=== PATIENT | female | born 1940 | race Caucasian/White ===

== ENCOUNTER → 2020-04-02 15:09 | Outpatient (CLI) | payer MEDICARE, SELFPAY ==
--- NOTE | ~2020-04-02 | MM_ITS ---
EXAMINATION: MM screening taryn BI w la HISTORY: Screening mammogram TECHNIQUE: Craniocaudal and mediolateral oblique 3-D tomosynthesis images were obtained and synthetic 2-D images were generated. CAD analysis was submitted and interpreted. COMPARISON: 12/14/2018, 10/31/2017 bilateral digital screening mammogram examinations BREAST PARENCHYMAL COMPOSITION: The breasts are heterogeneously dense, which may obscure small masses . FINDINGS: A There is no evidence of suspicious mass, calcification, or architectural distortion to perera ggest malignancy in either breast. There has been no suspicious interval change. IMPRESSION: 1. No mammographic evidence of malignancy. 2. Recommend routine screening mammography in one year. BI-RADS Category 1: Negative Reviewed, dictated and finalized at location A.
== END ==
PROVIDERS: PCP Emergency Medicine; Visit Provider Emergency Medicine
DX: Z12.31 Encounter for screening mammogram for malignant neoplasm of breast (principal)
CPT/HCPCS: 77063; 77067

== ENCOUNTER → 2021-09-28 13:54 | Outpatient (CLI) | payer MEDICARE, SELFPAY ==
--- NOTE | ~2021-09-28 | MM_ITS ---
EXAMINATION: MM screening taryn BI w la HISTORY: Screening TECHNIQUE: Craniocaudal and mediolateral oblique 3-D tomosynthesis images were obtained and synthetic 2-D images were generated. CAD analysis was submitted and interpreted. COMPARISON: Comparison to multiple prior studies sequentially, with oldest reviewed study dated 10/31. BREAST PARENCHYMAL COMPOSITION: Breast composed of scattered areas of fibroglandular density FINDINGS: There are developing bilateral breast asymmetries in the upper outer quadrants. There are n o suspicious calcifications. No skin thickening. IMPRESSION: 1. Developing bilateral breast asymmetries. 2. Additional mammographic views and possible breast ultrasound are recommended. BI-RADS Category 0: Incomplete: Needs additional imaging evaluation. Reviewed, dictated and finalized at location A. 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 Developing bilateral breast asymmetries. 2. Additional mammographic views and possible breast ultrasound are recommended . BI-RADS Category 0: Incomplete: Needs additional imaging evaluation.
== END ==
PROVIDERS: PCP Emergency Medicine; Visit Provider Emergency Medicine
DX: Z12.31 Encounter for screening mammogram for malignant neoplasm of breast (principal); R92.8 Other abnormal and inconclusive findings on diagnostic imaging of breast
CPT/HCPCS: 77063; 77067

== ENCOUNTER → 2021-10-18 13:54 | Outpatient (CLI) | payer MEDICARE, SELFPAY ==
--- NOTE | ~2021-10-18 | MMUS_ITS ---
EXAMINATION: MM diagnostic taryn BI w la, US breast BI complete HISTORY: Follow-up breast asymmetries TECHNIQUE: Additional 3-D tomosynthesis images of the breasts were performed and synthetic 2-D images were generated. CAD analysis was submitted and interpreted. High resolution bilateral complete breas t ultrasound was performed. COMPARISON: 09/28/2021 BREAST PARENCHYMAL COMPOSITION: The breasts are heterogenously dense, which may obscure small masses FINDINGS: MAMMOGRAPHIC FINDINGS: There are no suspicious masses, calcifications or architectural distortion in either breast to sugges t malignancy. ULTRASOUND: Complete bilateral US of all 4 quadrants of the breasts and retroareolar region was reviewed. Right breast: Near the areola there is a 9 mm cyst. No suspicious masses in the right breast to sugge st malignancy. Left breast: At 5:00, 1 cm from the nipple there is a 4 mm cyst. No suspicious masses to suggest robyn gnancy. IMPRESSION: 1. No evidence for malignancy in either breast. 2. Routine yearly screening mammogram and regular clinical breast examination are recommended. BI-RADS Category 2: Benign finding(s). Reviewed, dictated and finalized at location A. 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 No evidence for malignancy in either breast. 2. Routine yearly screening mammogram and regular clinical breast examination a re recommended. BI-RADS Category 2: Benign finding(s).
== END ==
PROVIDERS: PCP Emergency Medicine; Visit Provider Emergency Medicine
DX: N64.89 Other specified disorders of breast (principal); N60.02 Solitary cyst of left breast; N60.01 Solitary cyst of right breast
CPT/HCPCS: 76641; 77062; 77066; G0279

== ENCOUNTER → 2022-11-30 15:39 | Outpatient (CLI) | payer MEDICARE, SELFPAY ==
--- NOTE | ~2022-11-30 | MR_ITS ---
MRI of the cervical spine Clinical History: Radiculopathy Technique: Axial T2-weighted and gradient images, and sagittal T1-weighted, T2-weighted, and STIR tl ges were acquired. Findings: No fracture identified. Minimal grade 1 anterolisthesis of C3 over C4 present. 3 mm anterol isthesis of C4 over C5 noted. No suspicious bone marrow signal abnormality seen. There is advanced de generative change at the articulation of the odontoid process with the anterior arch of C1. At C2-C3, there is no disc bulge or herniation. No spinal canal stenosis, cord compression, or left n eural foraminal narrowing. There is probable mild right neural foraminal narrowing related to right-s ided facet joint arthropathy. At C3-C4, disc osteophyte complex and facet arthropathy are present, resulting in mild canal stenosis and possible minimal compression of the spinal cord. There is left neural foraminal narrowing. Right neural foramen probably preserved. At C4-C5, there is minimal disc osteophyte complex. No to spinal canal stenosis or cord compressio n. There is bilateral facet joint arthropathy with probable bilateral neural foraminal narrowing. At C5-C6, there is disc osteophyte complex. No to spinal canal stenosis or cord compression. Proba ble minimal bilateral neural foraminal narrowing with minimal bilateral facet arthropathy. At C6-C7, there is degenerative disc narrowing with minimal disc bulge. No spinal canal stenosis or c ord compression. Bilateral neural foramina are preserved. No abnormal signal in the spinal cord. Paravertebral soft tissues are unremarkable. Impression: [id number] degenerative spondylosis, as above. 3 mm anterolisthesis of C4 over C5. Minimal grade 1 anterolisthesis of C3 over C4. Reviewed, dictated and finalized at [facility]. Impression: [id number] degenerative spondylosis, as above. 3 mm anterolisthesis of C4 over C5. Minimal grade 1 anterolisthesis of C3 over C4.
--- NOTE | ~2022-11-30 | MR_ITS ---
MRI of the lumbar spine Clinical History: Spinal stenosis Technique: Axial T2-weighted images, and sagittal T1-weighted, T2-weighted, and T2 fat-sat images wer e acquired. Findings: There is levoscoliosis of the lower lumbar spine. No acute fracture seen. There is minimal grade 1 retrolisthesis of L3 over L4. There is 4 mm anterolisthesis of L4 over L5. There is extensive reactive marrow signal change in the L3, L4, L5 vertebral bodies due to underlying degenerative disc disease. At L1-L2, there is mild disc bulge, particularly to left foraminal region, with moderate bilateral fa cet joint arthropathy. No to spinal canal stenosis. Bilateral neural foramina are preserved. At L2-L3, there is disc bulge with annular fissure, with advanced bilateral facet arthropathy. There is mild central canal stenosis. There is minimal narrowing of the right neural foramen. Left neural f oramen preserved. At L3-L4, there is severe degenerative disc narrowing with disc bulge and moderate to severe bilatera l facet arthropathy. There is right lateral recess stenosis. There is moderate right neural foraminal narrowing. Left neural foramen preserved. At L4-L5, there is severe degenerative disc narrowing with diffuse disc bulge and advanced bilateral facet arthropathy. No to central canal stenosis. There is severe bilateral neural foraminal narrow ing. At L5-S1, there is mild disc bulge with moderate facet joint arthropathy, left worse than right. Ther e is severe left neural foraminal narrowing and minimal right neural foraminal narrowing. No to ce ntral canal stenosis. There is asymmetric unilateral atrophy of the right psoas major muscle. Paravertebral soft tissues ar e otherwise unremarkable. Impression: Moderate degenerative spondylosis, as detailed above, with extensive facet joint arthropathy and mult ilevel advanced neural foraminal narrowing. Levoscoliosis of the lower lumbar spine with 4 mm anterolisthesis of L4 over L5, and minimal grade 1 retrolisthesis of L3 over L4. Unilateral atrophy of the right psoas major muscle. Reviewed, dictated and finalized at location M. Impression: Moderate degenerative spondylosis, as detailed above, with extensive facet join t arthropathy and multilevel advanced neural foraminal narrowing. Levoscoliosis of the lower lumbar spine with 4 mm anterolisthesis of L4 over L5 , and minimal grade 1 retrolisthesis of L3 over L4. Unilateral atrophy of the right psoas major muscle.
== END ==
PROVIDERS: PCP Physician Assistant; Visit Provider Physician Assistant
DX: M48.062 Spinal stenosis, lumbar region with neurogenic claudication (principal); M47.22 Other spondylosis with radiculopathy, cervical region; M47.816 Spondylosis without myelopathy or radiculopathy, lumbar region; G12.9 Spinal muscular atrophy, unspecified
CPT/HCPCS: 72141; 72148

== ENCOUNTER → 2022-12-28 12:17 | Outpatient (CLI) | payer MEDICARE, SELFPAY ==
--- NOTE | ~2022-12-28 | MM_ITS ---
EXAMINATION: MM screening taryn BI w la HISTORY: Screening mammogram TECHNIQUE: Craniocaudal and mediolateral oblique 3-D tomosynthesis images were obtained and synthetic 2-D images were generated. CAD analysis was submitted and interpreted. COMPARISON: 09/28/2021, 04/02/2020, 12/14/2018 BREAST PARENCHYMAL COMPOSITION:The breasts are heterogeneously dense, which may obscure small masses. FINDINGS: No suspicious mass, calcification, or architectural distortion are identified in either gregoria ast to suggest malignancy. There has been no suspicious interval change. IMPRESSION: No mammographic evidence of malignancy. Recommend routine screening mammography in one year. BI-RADS Category 1: Negative Reviewed, dictated and finalized at location .
== END ==
PROVIDERS: PCP Emergency Medicine; Visit Provider Emergency Medicine
DX: Z12.31 Encounter for screening mammogram for malignant neoplasm of breast (principal)
CPT/HCPCS: 77063; 77067

== ENCOUNTER 2023-01-28 23:14 | Inpatient (IN) | payer MEDICARE, SELFPAY ==
--- NOTE | ~2023-01-28 | XR_ITS ---
EXAMINATION: XR abdomen obstructive series DATE: 02/06/2023 15:46 INDICATION: Abdominal pain TECHNIQUE: Upright and supine views of the abdomen were obtained. COMPARISON: None. FINDINGS: There is no free intraperitoneal gas. There are no dilated loops of bowel. There are minima l airspace opacities of the left lung base. Changes of right total hip arthroplasty are noted. There is severe lumbar spondylosis. Moderate osteoarthritis is noted in the left hip. Punctate left upper q uadrant calcifications are consistent with old granulomatous disease of the spleen. IMPRESSION: 1. Nonobstructive bowel gas pattern. Reviewed, dictated and finalized at location []
--- NOTE | ~2023-01-28 | XR_ITS ---
Portable chest x-ray Comparison: 01/31/2023 Clinical History: Covid Findings: Suspected minimal pleural effusions are present. There is left basilar airspace disease. Cardiomediastinal silhouette is stable. Bones and soft tissues are unremarkable. Impression: Left basilar pulmonary/atelectasis versus pneumonia. Minimal bilateral pleural effusions. Reviewed, dictated and finalized at [facility]. Impression: Left basilar pulmonary/atelectasis versus pneumonia. Minimal bilateral pleural effusions.
--- NOTE | ~2023-01-28 | US_ITS ---
EXAMINATION: US right upper quadrant DATE: 02/06/2023 15:36 INDICATION: NAUSEA TECHNIQUE: Multiple grayscale and Doppler ultrasound images of the right upper quadrant were obtained . COMPARISON: Ultrasound renal bilateral 01/29/2023; CTPA 02/02/2023. FINDINGS: The visualized portions of the pancreas are normal. The liver is normal size with increased echogenicity and normal echotexture. No surface nodularity. Normal hepatopetal flow in the main port al vein. Mobile shadowing gallstones. No wall thickening or pericholecystic fluid. The common bile du ct measures 6 mm. There was no sonographic Sharif sign. IMPRESSION: Echogenic liver, most commonly due to steatosis but also can be seen with hepatitis and fibrosis. Cholelithiasis, without sonographic evidence of cholecystitis. Reviewed, dictated and finalized at location K. IMPRESSION: Echogenic liver, most commonly due to steatosis but also can be seen with hepat itis and fibrosis. Cholelithiasis, without sonographic evidence of cholecystitis.
--- NOTE | ~2023-01-28 | XR_ITS ---
XR chest 1V portable 01/31/2023 11:56 Indication: Shortness of breath Procedure: AP portable chest Comparison: 08/29/2010 Findings: Heart size normal. Bilateral perihilar interstitial infiltrates with peribronchial thickeni ng. No pleural effusion or pneumothorax. No acute osseous abnormality. Impression: 1: Bilateral perihilar interstitial infiltrates may represent pneumonia or edema. Reviewed, dictated and finalized at location . Impression: 1: Bilateral perihilar interstitial infiltrates may represent pneumonia or blake a.
--- NOTE | ~2023-01-28 | US_ITS ---
EXAMINATION: US venous doppler [facility] DATE: 02/01/2023 14:05 INDICATION: +Ddimer, fevers . TECHNIQUE: Grayscale images without and with compression and Doppler images of the bilateral lower ex tremity veins were obtained. COMPARISON: 06/30/2011 FINDINGS: The right common femoral vein, profunda (deep) femoral vein, femoral vein, popliteal vein, peroneal v ein, posterior tibial veins, gastrocnemius vein, and greater saphenous vein are patent. Popliteal cys t. The left common femoral vein, profunda (deep) femoral vein, femoral vein, popliteal vein, peroneal v ein, posterior tibial veins, gastrocnemius vein, and greater saphenous vein are patent. Popliteal cys t. IMPRESSION: 1. Patent bilateral lower extremity veins. No evidence of deep venous thrombosis. 2. Bilateral Feliciano's cysts. Reviewed, dictated and finalized at location K. IMPRESSION: 1. Patent bilateral lower extremity veins. No evidence of deep venous thrombos is. 2. Bilateral Feliciano's cysts.
--- NOTE | ~2023-01-28 | CT_ITS ---
EXAMINATION: CTA chest PE protocol DATE: 02/02/2023 14:37 INDICATION: Pleuritic chest pain. COVID. Positive d-dimer. TECHNIQUE: Computed tomography (CT) pulmonary angiogram of the chest was performed with 100 mL Omnipa que-350 intravenous contrast. Additional 3D reconstructions utilizing coronal maximum intensity proje ction (MIP) were performed. Automated exposure control and iterative reconstruction technique were em ployed. The dose-length product was 359.97 mGy-cm. COMPARISON: None FINDINGS: Excellent contrast opacification of the pulmonary arteries. There is mild streak artifact from dense contrast in the superior vena cava and right atrium. No significant motion artifact yielding diagnost ic quality study which demonstrates no pulmonary embolism. Small bilateral posterior layering pleural effusions with dependent atelectasis in the bilateral lower lobes. Small regions of consolidation gr oundglass opacities in the left lower lobe and posterior right middle lobe which are more suspicious for pneumonia. Small calcified right lower lobe nodule along with calcified right hilar and mediastin al lymph nodes and a few small splenic calcifications, all consistent with old granulomatous disease. Heart size is normal. No pericardial effusion. Thoracic aorta is normal in caliber with no dissectio n. No pathologically enlarged thoracic lymphadenopathy. Focal hepatic steatosis along the ligamentum teres. Mild thoracic and severe lower cervical spondylosis. IMPRESSION: 1. No pulmonary embolism. 2. Patchy lung disease in the left lower and right middle lobe suspicious for pneumonia. 3. Small bilateral pleural effusions with dependent atelectasis in the bilateral lower lobes. Reviewed, dictated and finalized at location A. IMPRESSION: 1. No pulmonary embolism. 2. Patchy lung disease in the left lower and right middle lobe suspicious for p neumonia. 3. Small bilateral pleural effusions with dependent atelectasis in the bilatera l lower lobes.
--- NOTE | ~2023-01-28 | US_ITS ---
US renal BI 01/29/2023 13:08 Procedure: Realtime transabdominal ultrasound of the kidneys and bladder. Indication: Incomplete emptying. Flank pain. Comparison: No prior studies for comparison. Findings: Renal echotexture is normal bilaterally without hydronephrosis, contour deforming mass or r enal calculus. The right kidney measures 10 cm and left kidney measures 9.6 cm. Bladder within gilberto l limits. Gallstones are incidentally noted. Impression: 1: Unremarkable renal ultrasound. No stones, masses or hydronephrosis. 2: Cholelithiasis. Reviewed, dictated and finalized at location A. Impression: 1: Unremarkable renal ultrasound. No stones, masses or hydronephrosis. 2: Cholelithiasis.
[2023-01-28 23:53] VITALS: BP 144/65; PULSE 110; RESP 18; TEMP 38.5; O2SAT 94
[2023-01-29] VITALS (16 sets, daily range): BP systolic 103–149; BP diastolic 47–75; PULSE 84–111; RESP 12–20; TEMP 36.8–38.7; O2SAT 95–100; BMI 28.4
[2023-01-29 01:40] LABS: Basophils Percent Auto 0.5 % (0.2-1.2); Eosinophils Percent Auto 0.1 % (0-4.4); Hematocrit 42.6 % (37.0-47.0); Hemoglobin 13.5 g/dL (12.0-15.0); Immature Granulocyte Absolute 0.03 K/mm3 (0.00-0.031); Immature Granulocyte Percent A 0.4 % (0-0.5); Lymphocytes Absolute Auto 0.64 K/mm3 (0.9-3.2); Lymphocytes Percent Auto 8.6 % (18.3-44.2); Mean Corpuscular HGB Conc 31.7 g/dl (32-36); Mean Corpuscular Hemoglobin 30.2 pg (26-34); Mean Corpuscular Volume 95.3 fl (80-100); Mean Platelet Volume 9.5 fl (7.4-10.4); Monocytes Absolute Auto 0.5 K/mm3 (0.1-0.6); Monocytes Percent Auto 6.7 % (2.6-8.5); Neutrophils Absolute Auto 6.2 K/mm3 (1.3-6.7); Neutrophils Percent Auto 83.7 % (45.5-73.1); Platelet Count Result 271 k/mm3 (150-375); Red Blood Count 4.47 M/mm3 (4.2-5.4); Red Cell Distribution Width 13.9 % (11.5-14.5); White Blood Count 7.4 K/mm3 (4.5-10.0)
[2023-01-29 01:46] LABS: Appearance Urine Cloudy (Clear); Bacteria Urine 1+ /hpf; Bilirubin Urine Negative (Negative); Blood Urine 2+ (Negative); Color Urine Yellow (Yellow); Glucose Urine UA Negative (Negative); Ketones Urine 1+ mg/dL (Negative); Leukocyte Esterase Ur 2+ LEU/UL (Negative); Nitrate Urine Negative (Negative); Non Pathogenic Casts 0-2; Protein Urine Trace mg/dL (Negative); Specific Grav Ur 1.022 (1.001-1.035); Squamous Epithelial Cell Urine Moderate /hpf (Few); Urobilinogen Urine 0.2 mg/dL (<2.0); WBC Urine 51-100 /hpf
[2023-01-29 01:54] LABS: Alanine Aminotransferase 24 U/L (6-35); Albumin Level 4.6 g/dL (3.5-5.1); Alkaline Phosphatase 71 U/L (38-126); Anion Gap 7 mmol/L (8-16); Aspartate Amino Transferase 34 U/L (14-36); Bilirubin,Total 0.4 mg/dL (0.2-1.3); Blood Urea Nitrogen 14 mg/dL (7-17); Calcium 9.3 mg/dL (8.4-10.2); Carbon Dioxide 27 mmol/L (22-30); Chloride 99 mmol/L (98-107); Estimated CRCL calculation 34 ml/min; Estimated Glomerular Filt Rate 53; Glucose 109 mg/dL (65-110); Lipase 59 U/L (23-300); Potassium 4.6 mmol/L (3.4-5.0); Sodium 133 mmol/L (137-145)
[2023-01-29 01:56] LABS: Add Urine Microscopic? YES
--- NOTE | 2023-01-29 03:43 | PM.IMHP ---
H&P: HPI History of Present Illness Date/Time: 01/29/23 03:43 Chief Complaint: Fever Narrative: This is an 82-year-old female with past medical history significant for rheumatoid arthritis, hypertension, hypothyroidism. Patient presents to the emergency room due to lower abdomen pain, pain or burning with urination, fever, generalized malaise. Denies cough, sputum production, nausea vomiting or diarrhea. Preliminary workup was significant for urinalysis with numerous WBCs present. Patient is on immunosuppressive therapy for her rheumatoid arthritis. Patient is being admitted for further evaluation management and treatment. Review of Systems Review of Systems: Lower abdomen pain, pain or burning with urination, fever, chills, generalized malaise Constitutional: Constitutional: Reports chills, Reports fatigue, Reports fever(s), Reports malaise, Reports poor appetite and Reports weakness Eyes: Eyes: Denies change in vision ENT: Denies dysphagia, Denies vertigo, Denies dizziness and Denies odynophagia Cardiovascular: Cardiovascular: Denies chest pain, Denies radiating jaw, neck or arm pain and Denies palpitations Respiratory: Respiratory: Denies chest congestion, Denies cough and Denies excessive phlegm production Gastrointestinal: Gastrointestinal: Reports abdominal pain, Denies dyspepsia, Denies heartburn, Denies diarrhea, Denies nausea and Denies vomiting Genitourinary: Genitourinary: Reports dysuria Musculoskeletal: Musculoskeletal: Reports myalgias and Reports muscle weakness Integumentary/Breasts: Skin/Breast: Denies rash Neurologic: Denies vertigo, Denies dizziness, Denies focal weakness and Denies Sensory deficit (Neuro) Psychiatric: Psychiatric: Reports no additional psychiatric complaints and Reports as per HPI Endocrine: Endocrine: Denies cold intolerance, Denies flushing, Denies heat intolerance, Denies polyphagia, Denies polydipsia and Denies palpitations Hematologic/Lymphatic: Hematologic/Lymphatic: Reports no additional hematologic/lymphatic complaints and Reports as per HPI Allergic/Immunologic: Allergic/Immunologic: Reports no additional allergic/immunologic complaints and Reports as per HPI PMFSH Past Medical History Medical History (Updated 01/29/23 @ 04:04 by Shanon Robison MD) HLD (hyperlipidemia) Hypothyroidism (acquired) Family History Family History Father Family history of emphysema Sibling Family history of emphysema Grandparent Family history of cardiovascular disease Family history of lung cancer Social History Social History Smoking status: Never smoker Second hand tobacco smoke exposure: No Alcohol intake: never Substance use: never Substance use type: does not use Living arrangements: with family Gender identity (if verbalized by the patient): Female Spiritual care concerns: No Agree to blood products: Yes Meds Home Medications and Allergies Home Medications Medication Instructions Recorded Confirmed Type cholecalciferol (vitamin D3) 50 2,000 unit PO DAILY 10/08/19 10/04/21 History mcg (2,000 unit) tablet hydrocodone 10 mg-acetaminophen 1 tablet PO Q6H PRN 04/07/20 10/04/21 History 325 mg tablet diclofenac sodium 75 mg See Rx Instructions .Route 10/13/20 10/04/21 Rx tablet,delayed release .COMPLEX #180 tabs amitriptyline 10 mg tablet 10 mg PO QHS 04/04/22 History lidocaine 4 % topical patch 1 patch topical DAILY PRN pain #30 04/04/22 04/04/22 Rx (Aspercreme (lidocaine)) ea levothyroxine 50 mcg tablet See Rx Instructions .Route 04/19/22 Rx .COMPLEX #90 tabs ciprofloxacin HCl 500 mg tablet 500 mg PO BID #14 tabs 06/15/22 Rx (Cipro) metronidazole 250 mg tablet 250 mg PO TID #21 tabs 06/15/22 Rx tretinoin 0.1 % topical cream See Rx Instructions .Route 10/03/22 Rx .COMPLEX #45 grams losartan 50 mg tab
[2023-01-29] MEDS: SODIUM CHLORIDE 0.9% IV 1,000 ML 999 ML IV CONT ×2 (04:14→11:16)
--- NOTE | 2023-01-29 04:21 | ED.FEVER ---
HPI - Fever General Chief Complaint: Fever Stated Complaint: Fever, pain all over Time Seen by Provider: 01/29/23 03:29 History of Present Illness HPI Narrative: Patient with history of arthritis on immunosuppressants, with colectomy in the past, presenting with not feeling well over the last day, with fevers. Has joint pain and neck pain which is chronic, but also some lower abdominal pain. Related Data Home Medications Medication Instructions Recorded Confirmed cholecalciferol (vitamin D3) 50 2,000 unit PO DAILY 10/08/19 10/04/21 mcg (2,000 unit) tablet hydrocodone 10 mg-acetaminophen 1 tablet PO Q6H PRN 04/07/20 10/04/21 325 mg tablet amitriptyline 10 mg tablet 10 mg PO QHS 04/04/22 Allergies Allergy/AdvReac Type Severity Reaction Status Date / Time No Known Allergies Allergy Verified 10/03/22 14:14 Review of Systems Review of Systems: CONST: fever and malaise. HEENT: No sore throat C/V: No chest pain RESP: No cough GI: Reports lower abdominal pain : No dysuria. M/S: No joint pain. SKIN: No rash. NEURO: [No headache or focal numbness or weakness] PSYCH: [No depression] [facility] Past Medical History Medical History (Updated 01/29/23 @ 04:36 by Kelley Kevin MD) HLD (hyperlipidemia) Hypothyroidism (acquired) Family History Family History Father Family history of emphysema Sibling Family history of emphysema Grandparent Family history of cardiovascular disease Family history of lung cancer Social History Social History Smoking status: Never smoker Second hand tobacco smoke exposure: No Alcohol intake: never Substance use: never Substance use type: does not use Living arrangements: with family Gender identity (if verbalized by the patient): Female Spiritual care concerns: No Agree to blood products: Yes Exam Narrative: EXAMINATION OF ORGAN SYSTEMS/BODY AREAS: Constitutional: Vital signs per nursing GENERAL:[No acute distress, non-toxic appearing.] HEAD: Normal with no signs of head trauma. EYES: EOMI, conjunctiva normal ENT: Hearing grossly intact LUNGS: Nonlabored breathing. HEART: Tachycardic ABD: [Soft], minimally tender suprapubic EXT: Normal range of motion SKIN: [No rashes or lesions.] NEURO: [Alert and oriented x 3. No gross focal sensory or strength deficits.] PSYCH: Normal affect Course Vital Signs Vital signs: Vital Signs Temperature 101.3 F H 01/28/23 23:53 Pulse Rate 110 H 01/28/23 23:53 Respiratory Rate 18 01/28/23 23:53 Blood Pressure 144/65 H 01/28/23 23:53 Pulse Oximetry 94 01/28/23 23:53 Oxygen Delivery Room Air 01/28/23 23:53 Temperature 100.4 F H 01/29/23 04:13 Pulse Rate 111 H 01/29/23 01:22 Respiratory Rate 16 01/29/23 01:22 Blood Pressure 149/51 H 01/29/23 01:22 Pulse Oximetry 96 01/29/23 01:22 Oxygen Delivery Room Air 01/28/23 23:53 MDM - Fever MDM Narrative Medical decision making narrative: 82-year-old female presenting with fevers, lower abdominal pain, for the last day. Vital signs notable for tachycardia and fever, on exam she is well-appearing and resting comfortably in no obvious distress, abdomen is soft with very minimal tenderness suprapubic, no flank pain. She is able to range all extremities with normal range of motion, I have low concern for septic arthritis at this time, work-up initiated and notable for UA consistent with UTI. Patient will be started on ceftriaxone, given her immunocompromise status I do feel she would benefit from observation at this time, case discussed with hospitalist for admission, patient agreeable to this plan Lab Data 01/29/23 01:20 01/29/23 01:20 Labs: Lab Results 01/29/23 01/29/23 Range/Units 01:20 01:30 WBC 7.4 (4.5-10.0) K/mm3 RBC 4.47 (4.2-5.4) M/mm3 Hgb 13.5 (12.0-15.
--- NOTE | 2023-01-29 05:14 | ADMGEN ---
This patient, Emy Yates, was admitted to 2 Medical Room 244-. Patient/family oriented to hospital policies and general routines including ID bracelet, bed and alarms, visiting hours, pain management, procedures, bathroom and other care routines, personal items, smoking policy, room service/diet, and visiting hours. Information on how to activate the Rapid Response Team has been discussed. Patient/Family are encouraged to report perceived risks to care and to ask questions if they do not understand what they are told or what they should do.
[2023-01-29] MEDS: HYDROcodone/acetaminophen (*CRX) 10-325 MG TABLET 1 TAB PO ×2 (06:40→22:08)
[2023-01-29] MEDS: LEVOTHYROXINE SODIUM 50 MCG TABLET PO (06:40)
[2023-01-29] MEDS: DICLOFENAC SOD 75 MG TABLET.EC PO (08:12)
[2023-01-29] MEDS: CHOLECALCIFEROL 1,000 UNITS TABLET 2000 UNITS PO (08:12)
[2023-01-29] MEDS: LOSARTAN POTASSIUM 50 MG TABLET PO (08:13)
[2023-01-29] MEDS: GABAPENTIN 100 MG CAPSULE PO ×3 (08:13→17:43)
--- NOTE | 2023-01-29 10:20 | PM.IMPN ---
Progress Note: A&P Assessment and Plan (1) UTI (urinary tract infection): Code(s): N39.0 - Urinary tract infection, site not specified Status: Acute Assessment and Plan: Continue Rocephin started 01/29 Follow-up urine cultures Check CRP, procalcitonin Check renal ultrasound, bladder scan due to flank discomfort, fevers, sense of incomplete emptying and new onset overflow incontinence as well as history of kidney stones (2) Cervical spinal stenosis: Code(s): M48.02 - Spinal stenosis, cervical region Status: Acute Assessment and Plan: Unchanged (3) Fever: Code(s): R50.9 - Fever, unspecified Status: Acute Assessment and Plan: Likely secondary to urinary tract infection Supportive care (4) Rheumatoid arthritis in remission: Code(s): M06.9 - Rheumatoid arthritis, unspecified Status: Acute Assessment and Plan: In remission Follows up in the outpatient setting (5) Headache: Code(s): R51.9 - Headache, unspecified Status: Acute Assessment and Plan: Unsure of etiology, differential diagnosis includes giant cell arteritis due to temporal location, no vision changes noted, could also did simply be secondary to the infection, Tylenol and Toradol as needed, will also check ESR and CRP and monitor with serial vision field testing, hold off on steroids for now due to immunocompromised state current infection (6) Hypothyroidism (acquired): Code(s): E03.9 - Hypothyroidism, unspecified Status: Acute Assessment and Plan: Check TSH, continue levothyroxine Plan DVT prophylaxis with SCDs GI prophylaxis not indicated Code status full code Subjective Date/time seen: 01/29/23 10:20 Interval history: No overnight events noted. No chest pain or shortness of breath. No nausea, vomiting or diarrhea. Patient did have fevers overnight. She states she is feeling a little better since coming in. Still quite weak. Decreased p.o. intake. She is also complaining of a headache, mainly at the right temporal area. She denies any vision changes, blurry vision or double vision. Review of Systems Review of Systems: 12 point review of systems was assessed and was negative except as noted in the HPI Exam Narrative: General: No acute distress, alert and oriented per baseline HEENT: Atraumatic, normocephalic, mucous membranes moist CV: Regular rate and rhythm, S1, S2 Lungs: Clear to auscultation bilaterally, no rales or crackles noted, no wheezes, good air entry Abdomen: Soft, nontender, nondistended Extremities: Normal to inspection Skin: No rashes noted, no lesions or wounds seen Psych: Euthymic, normal affect Objective Data Vital Signs Vital Signs: Vital Signs - 24 hr 01/28/23 23:53 01/29/23 01:22 01/29/23 04:13 Temperature 101.3 F H 100.1 F H 100.4 F H Pulse Rate 110 H 111 H Respiratory Rate 18 16 Blood Pressure 144/65 H 149/51 H Pulse Oximetry 94 96 Oxygen Delivery Room Air 01/29/23 03:34 01/29/23 03:46 01/29/23 04:01 Temperature Pulse Rate 95 Respiratory Rate 12 Blood Pressure 143/75 H 136/56 L 131/63 Pulse Oximetry 98 97 95 Oxygen Delivery 01/29/23 04:16 01/29/23 04:56 01/29/23 05:24 Temperature 100.5 F H Pulse Rate 96 Respiratory Rate 20 Blood Pressure 132/63 138/49 L Pulse Oximetry 96 100 Oxygen Delivery Room Air 01/29/23 08:09 01/29/23 08:05 Temperature 98.3 F Pulse Rate 84 Respiratory Rate 16 Blood Pressure 113/56 L Pulse Oximetry 98 Oxygen Delivery Room Air Intake/Output Intake/Output: Intake & Output 01/26/23 01/27/23 01/28/23 01/29/23 23:59 23:59 23:59 23:59 Intake Total 270 Output Total 400 Balance -130 Meds/Results Medications: Active Medications Generic Name Dose Route Start Last Admin Trade Name Beatriz PRN Reason Stop Dose Admin Acetaminophen 1,000 mg 01/29/23 10:15
--- NOTE | 2023-01-29 11:19 | PCOTNOTE ---
Attempted OT evaluation, patient is getting bolus. RN states to hold evaluation till complete.
[2023-01-29 11:42] LABS: Erythrocyte Sedimentation Rate 28 mm/hr (0-20)
[2023-01-29 11:45] LABS: CRP 1.9 mg/dL (<1.0)
[2023-01-29 12:10] LABS: Thyroid Stimulating Hormone 0.961 uIU/mL (0.465-4.680)
[2023-01-29] MEDS: ACETAMINOPHEN 500 MG TABLET 1000 MG PO ×2 (12:26→21:02)
[2023-01-29 12:48] LABS: Procalcitonin 0.1 ng/mL
--- NOTE | 2023-01-29 13:27 | PCOTNOTE ---
Attempted OT evaluation. Nurse and patient report fever. Patient refuses evaluation at this time.
[2023-01-29] MEDS: AMITRIPTYLINE HCL 10 MG TABLET PO (22:08)
[2023-01-30] VITALS (14 sets, daily range): BP systolic 124–136; BP diastolic 53–72; PULSE 86–102; RESP 16; TEMP 36.6–39.2; O2SAT 93–96
[2023-01-30] MEDS: ACETAMINOPHEN 500 MG TABLET 1000 MG PO ×4 (05:08→23:57)
[2023-01-30] MEDS: LEVOTHYROXINE SODIUM 50 MCG TABLET PO (05:08)
[2023-01-30 05:44] LABS: Basophils Percent Auto 0.2 % (0.2-1.2); Eosinophils Percent Auto 0.2 % (0-4.4); Hematocrit 37.4 % (37.0-47.0); Hemoglobin 11.9 g/dL (12.0-15.0); Immature Granulocyte Absolute 0.02 K/mm3 (0.00-0.031); Immature Granulocyte Percent A 0.3 % (0-0.5); Lymphocytes Absolute Auto 1.43 K/mm3 (0.9-3.2); Lymphocytes Percent Auto 21.7 % (18.3-44.2); Mean Corpuscular HGB Conc 31.8 g/dl (32-36); Mean Corpuscular Hemoglobin 30.4 pg (26-34); Mean Corpuscular Volume 95.7 fl (80-100); Mean Platelet Volume 9.6 fl (7.4-10.4); Monocytes Absolute Auto 0.5 K/mm3 (0.1-0.6); Monocytes Percent Auto 7.8 % (2.6-8.5); Neutrophils Absolute Auto 4.6 K/mm3 (1.3-6.7); Neutrophils Percent Auto 69.8 % (45.5-73.1); Platelet Count Result 229 k/mm3 (150-375); Red Blood Count 3.91 M/mm3 (4.2-5.4); Red Cell Distribution Width 14.1 % (11.5-14.5); White Blood Count 6.6 K/mm3 (4.5-10.0)
[2023-01-30 06:02] LABS: Alanine Aminotransferase 22 U/L (6-35); Albumin Level 3.7 g/dL (3.5-5.1); Alkaline Phosphatase 49 U/L (38-126); Anion Gap 7 mmol/L (8-16); Aspartate Amino Transferase 38 U/L (14-36); Bilirubin,Total 0.2 mg/dL (0.2-1.3); Blood Urea Nitrogen 10 mg/dL (7-17); Calcium 7.9 mg/dL (8.4-10.2); Carbon Dioxide 26 mmol/L (22-30); Chloride 103 mmol/L (98-107); Estimated CRCL calculation 43 ml/min; Estimated Glomerular Filt Rate > 60; Glucose 97 mg/dL (65-110); Potassium 4.1 mmol/L (3.4-5.0); Sodium 136 mmol/L (137-145)
--- NOTE | 2023-01-30 08:11 | PCPTNOTE ---
Attempted PT evaluation, patient refused and stated 'I'm not feel well . Will follow.
--- NOTE | 2023-01-30 08:43 | PM.IMPN ---
Progress Note: A&P Assessment and Plan (1) UTI (urinary tract infection): Code(s): N39.0 - Urinary tract infection, site not specified Status: Acute Assessment and Plan: Continue Rocephin started 01/29, follow-up urine cultures Check renal ultrasound, bladder scan due to flank discomfort, fevers, sense of incomplete emptying and new onset overflow incontinence as well as history of kidney stones 01/30: sustained fevers overnight despite tylenol, concern for enterococcus vs ESBL? d/c rocephin, start vanc + ertapenem, follow urine cultures, recheck CRP + PCT 01/31, IVF (2) Cervical spinal stenosis: Code(s): M48.02 - Spinal stenosis, cervical region Status: Acute Assessment and Plan: Unchanged (3) Fever: Code(s): R50.9 - Fever, unspecified Status: Acute Assessment and Plan: Likely secondary to urinary tract infection Supportive care (4) Rheumatoid arthritis in remission: Code(s): M06.9 - Rheumatoid arthritis, unspecified Status: Acute Assessment and Plan: In remission Follows up in the outpatient setting (5) Headache: Code(s): R51.9 - Headache, unspecified Status: Acute Assessment and Plan: Unsure of etiology, differential diagnosis includes giant cell arteritis due to temporal location, no vision changes noted, could also did simply be secondary to the infection, Tylenol and Toradol as needed, will also check ESR and CRP and monitor with serial vision field testing, hold off on steroids for now due to immunocompromised state current infection (6) Hypothyroidism (acquired): Code(s): E03.9 - Hypothyroidism, unspecified Status: Acute Assessment and Plan: TSH wnl, continue levothyroxine Plan DVT prophylaxis with SCDs GI prophylaxis not indicated Code status full code Subjective Date/time seen: 01/30/23 08:43 Interval history: Patient is continuing to have fevers and feels quite unwell. She feels quite weak. No overnight events. No NVD. No CP, SOB. Review of Systems Review of Systems: 12 point review of systems was assessed and was negative except as noted in the HPI Exam Narrative: General: No acute distress, alert and oriented per baseline HEENT: Atraumatic, normocephalic, mucous membranes moist CV: Regular rate and rhythm, S1, S2 Lungs: Clear to auscultation bilaterally, no rales or crackles noted, no wheezes, good air entry Abdomen: Soft, nontender, nondistended Extremities: Normal to inspection Skin: No rashes noted, no lesions or wounds seen Psych: Euthymic, normal affect Objective Data Vital Signs Vital Signs: Vital Signs - 24 hr 01/29/23 12:26 01/29/23 13:29 01/29/23 14:00 Temperature 101.0 F H 100.1 F H 98.3 F Pulse Rate 91 Respiratory Rate 18 Blood Pressure 103/47 L Pulse Oximetry 95 Oxygen Delivery 01/29/23 19:55 01/29/23 21:01 01/29/23 21:02 Temperature 99.5 F 101.2 F H 101.2 F H Pulse Rate 86 Respiratory Rate 20 Blood Pressure 120/53 L Pulse Oximetry 96 Oxygen Delivery 01/29/23 20:00 01/29/23 22:02 01/29/23 22:59 Temperature 101.6 F H 100.5 F H Pulse Rate Respiratory Rate Blood Pressure Pulse Oximetry Oxygen Delivery Room Air 01/30/23 04:54 01/30/23 05:08 01/30/23 06:08 Temperature 100.6 F H 100.6 F H 102.2 F H Pulse Rate 102 H Respiratory Rate 16 Blood Pressure 124/72 Pulse Oximetry 96 Oxygen Delivery 01/30/23 08:19 Temperature Pulse Rate Respiratory Rate Blood Pressure Pulse Oximetry Oxygen Delivery Room Air Intake/Output Intake/Output: Intake & Output 01/27/23 01/28/23 01/29/23 01/30/23 23:59 23:59 23:59 23:59 Intake Total 2060 250 Output Total 1400 Balance 660 250 Meds/Results Medications: Active Medications Generic Name Dose Route Start Last Admin Trade Name Freq PRN Reason Stop Dose Admin Acetaminophen 1,00
[2023-01-30] MEDS: LOSARTAN POTASSIUM 50 MG TABLET PO (10:46)
[2023-01-30] MEDS: GABAPENTIN 100 MG CAPSULE PO ×3 (10:46→18:34)
[2023-01-30] MEDS: CHOLECALCIFEROL 1,000 UNITS TABLET 2000 UNITS PO (10:47)
[2023-01-30] MEDS: ERTAPENEM 1 GM/NS 50 ML 1 GM/50 ML BAG IVPB (10:47)
[2023-01-30] MEDS: HYDROcodone/acetaminophen (*CRX) 10-325 MG TABLET 1 TAB PO (10:50)
[2023-01-30] MEDS: VANCOMYCIN 1,250 MG/NS 250 ML 1,250 MG/250 ML BAG 166.67 MG IVPB (12:00)
[2023-01-30] MEDS: BENZOCAINE/MENTHOL (*BKC) 18 EA LOZENGE 1 LOZENGE PO ×2 (12:54→18:34)
--- NOTE | 2023-01-30 13:25 | PCPTNOTE ---
On 01/30/23, the student, [Eda Barragan], provided care and completed [facility] documentation on this patient. I have reviewed the student's documentation and agree with the findings.
[2023-01-30] MEDS: SODIUM CHLORIDE 0.9% IV 1,000 ML 999 ML IV CONT (16:48)
[2023-01-30 18:09] LABS: Influenza A QL RT-PCR Negative (Negative); Influenza B QL RT-PCR Negative (Negative); RSV RNA, RT-PCR Negative (Negative); SARS-CoV-2 RNA PCR Positive (Negative)
[2023-01-30] MEDS: SODIUM CHLORIDE 0.9% IV 1,000 ML 125 ML IV CONT (18:33)
[2023-01-30] MEDS: AMITRIPTYLINE HCL 10 MG TABLET PO (20:54)
[2023-01-31] VITALS (8 sets, daily range): BP systolic 132–152; BP diastolic 54–60; PULSE 79–95; RESP 16; TEMP 37.4–38.9; O2SAT 97–98
[2023-01-31] MEDS: SODIUM CHLORIDE 0.9% IV 1,000 ML 125 ML IV CONT ×3 (02:51→23:57)
[2023-01-31 05:45] LABS: Basophils Percent Auto 0.1 % (0.2-1.2); Hematocrit 35.5 % (37.0-47.0); Hemoglobin 11.5 g/dL (12.0-15.0); Immature Granulocyte Absolute 0.04 K/mm3 (0.00-0.031); Immature Granulocyte Percent A 0.4 % (0-0.5); Lymphocytes Absolute Auto 2.18 K/mm3 (0.9-3.2); Lymphocytes Percent Auto 21.8 % (18.3-44.2); Mean Corpuscular HGB Conc 32.4 g/dl (32-36); Mean Corpuscular Hemoglobin 30.6 pg (26-34); Mean Corpuscular Volume 94.4 fl (80-100); Mean Platelet Volume 9.6 fl (7.4-10.4); Monocytes Absolute Auto 0.4 K/mm3 (0.1-0.6); Monocytes Percent Auto 4.4 % (2.6-8.5); Neutrophils Absolute Auto 7.3 K/mm3 (1.3-6.7); Neutrophils Percent Auto 73.3 % (45.5-73.1); Platelet Count Result 212 k/mm3 (150-375); Red Blood Count 3.76 M/mm3 (4.2-5.4); Red Cell Distribution Width 13.8 % (11.5-14.5)
[2023-01-31] MEDS: LEVOTHYROXINE SODIUM 50 MCG TABLET PO (05:49)
[2023-01-31 06:05] LABS: Alanine Aminotransferase 20 U/L (6-35); Albumin Level 3.4 g/dL (3.5-5.1); Alkaline Phosphatase 47 U/L (38-126); Anion Gap 6 mmol/L (8-16); Aspartate Amino Transferase 33 U/L (14-36); Bilirubin,Total 0.2 mg/dL (0.2-1.3); Blood Urea Nitrogen 7 mg/dL (7-17); CRP 3.8 mg/dL (<1.0); Calcium 7.2 mg/dL (8.4-10.2); Carbon Dioxide 22 mmol/L (22-30); Chloride 106 mmol/L (98-107); Estimated CRCL calculation 56 ml/min; Estimated Glomerular Filt Rate > 60; Glucose 88 mg/dL (65-110); Potassium 3.8 mmol/L (3.4-5.0); Sodium 134 mmol/L (137-145)
[2023-01-31 06:15] LABS: Procalcitonin 0.3 ng/mL
[2023-01-31] MEDS: ACETAMINOPHEN 500 MG TABLET 1000 MG PO ×2 (06:28→13:07)
[2023-01-31] MEDS: LOSARTAN POTASSIUM 50 MG TABLET PO (10:11)
[2023-01-31] MEDS: CHOLECALCIFEROL 1,000 UNITS TABLET 2000 UNITS PO (10:11)
[2023-01-31] MEDS: GABAPENTIN 100 MG CAPSULE PO ×3 (10:11→17:44)
[2023-01-31] MEDS: BENZOCAINE/MENTHOL (*BKC) 18 EA LOZENGE 1 LOZENGE PO (10:11)
[2023-01-31] MEDS: ERTAPENEM 1 GM/NS 50 ML 1 GM/50 ML BAG IVPB (10:16)
[2023-01-31] MEDS: VANCOMYCIN 1,250 MG/NS 250 ML 1,250 MG/250 ML BAG 166.6 MG IVPB (13:00)
[2023-01-31] MEDS: DEXAMETHASONE 2 MG TABLET 6 MG PO (13:00)
[2023-01-31] MEDS: ENOXAPARIN 40 MG/0.4 ML SYRINGE SUB-Q (15:59)
[2023-01-31] MEDS: ONDANSETRON INJ 4 MG/2 ML VIAL IV PUSH (15:59)
[2023-01-31] MEDS: levoFLOXacin 750 MG/D5W 150 ML 750 MG/150 ML BAG 100 MG IVPB (16:00)
[2023-01-31 17:45] LABS: White Blood Count 7.6 K/mm3 (4.5-10.0)
[2023-01-31 17:46] LABS: Basophils Percent Auto 0.1 % (0.2-1.2); Hemoglobin 11.1 g/dL (12.0-15.0); Immature Granulocyte Absolute 0.03 K/mm3 (0.00-0.031); Immature Granulocyte Percent A 0.4 % (0-0.5); Lymphocytes Absolute Auto 0.94 K/mm3 (0.9-3.2); Lymphocytes Percent Auto 12.4 % (18.3-44.2); Mean Corpuscular HGB Conc 31.7 g/dl (32-36); Mean Corpuscular Hemoglobin 29.9 pg (26-34); Mean Corpuscular Volume 94.3 fl (80-100); Mean Platelet Volume 9.8 fl (7.4-10.4); Monocytes Absolute Auto 0.1 K/mm3 (0.1-0.6); Monocytes Percent Auto 1.3 % (2.6-8.5); Neutrophils Absolute Auto 6.5 K/mm3 (1.3-6.7); Neutrophils Percent Auto 85.8 % (45.5-73.1); Platelet Count Result 204 k/mm3 (150-375); Red Blood Count 3.71 M/mm3 (4.2-5.4); Red Cell Distribution Width 13.6 % (11.5-14.5)
[2023-01-31 18:03] LABS: Alanine Aminotransferase 21 U/L (6-35); Albumin Level 3.5 g/dL (3.5-5.1); Alkaline Phosphatase 47 U/L (38-126); Anion Gap 7 mmol/L (8-16); Aspartate Amino Transferase 34 U/L (14-36); Bilirubin,Total 0.2 mg/dL (0.2-1.3); Blood Urea Nitrogen 6 mg/dL (7-17); CRP 5.5 mg/dL (<1.0); Calcium 7.4 mg/dL (8.4-10.2); Carbon Dioxide 20 mmol/L (22-30); Chloride 108 mmol/L (98-107); Estimated CRCL calculation 65 ml/min; Estimated Glomerular Filt Rate > 60; Glucose 130 mg/dL (65-110); Potassium 3.7 mmol/L (3.4-5.0); Sodium 135 mmol/L (137-145)
[2023-01-31 18:34] LABS: D Dimer 1.13 ug/mL (<0.48)
[2023-01-31 18:35] LABS: Procalcitonin 0.3 ng/mL
[2023-01-31] MEDS: AMITRIPTYLINE HCL 10 MG TABLET PO (20:23)
[2023-01-31] MEDS: HYDROcodone/acetaminophen (*CRX) 10-325 MG TABLET 1 TAB PO (22:09)
[2023-02-01 00:30] VITALS: TEMP 36.9
[2023-02-01 05:26] VITALS: BP 121/60; PULSE 79; RESP 16; TEMP 36.6; O2SAT 98
[2023-02-01] MEDS: LEVOTHYROXINE SODIUM 50 MCG TABLET PO (05:42)
[2023-02-01 06:37] LABS: Hematocrit 33.4 % (37.0-47.0); Hemoglobin 10.7 g/dL (12.0-15.0); Immature Granulocyte Absolute 0.02 K/mm3 (0.00-0.031); Immature Granulocyte Percent A 0.3 % (0-0.5); Lymphocytes Absolute Auto 1.35 K/mm3 (0.9-3.2); Lymphocytes Percent Auto 21.4 % (18.3-44.2); Mean Corpuscular Hemoglobin 30.1 pg (26-34); Mean Corpuscular Volume 93.8 fl (80-100); Mean Platelet Volume 10.1 fl (7.4-10.4); Monocytes Absolute Auto 0.4 K/mm3 (0.1-0.6); Monocytes Percent Auto 5.9 % (2.6-8.5); Neutrophils Absolute Auto 4.6 K/mm3 (1.3-6.7); Neutrophils Percent Auto 72.4 % (45.5-73.1); Platelet Count Result 223 k/mm3 (150-375); Red Blood Count 3.56 M/mm3 (4.2-5.4); Red Cell Distribution Width 13.4 % (11.5-14.5); White Blood Count 6.3 K/mm3 (4.5-10.0)
[2023-02-01 06:41] LABS: Alanine Aminotransferase 21 U/L (6-35); Albumin Level 3.1 g/dL (3.5-5.1); Alkaline Phosphatase 37 U/L (38-126); Anion Gap 6 mmol/L (8-16); Aspartate Amino Transferase 36 U/L (14-36); Bilirubin,Total 0.3 mg/dL (0.2-1.3); Blood Urea Nitrogen 7 mg/dL (7-17); Calcium 7.2 mg/dL (8.4-10.2); Carbon Dioxide 23 mmol/L (22-30); Chloride 108 mmol/L (98-107); Estimated CRCL calculation 65 ml/min; Estimated Glomerular Filt Rate > 60; Glucose 109 mg/dL (65-110); Potassium 3.8 mmol/L (3.4-5.0); Sodium 137 mmol/L (137-145)
--- NOTE | 2023-02-01 07:10 | PM.IMPN ---
Progress Note: A&P Assessment and Plan (1) COVID: Code(s): U07.1 - COVID-19 Status: Acute Assessment and Plan: Patient presents with fever. She abdominal pain and urinary symptoms but urine culture negative. CXR showing bilateral perihilar interstitial infiltrates. Last fever was yesterday. Started on Rocephin (01/29) but changed to Vancomycin + Ertapenem (01/30). Ertapenem stopped after 2 doses. Levaquin started 01/31. Dexamethasone started 01/31. -WBC normal. PCT 0.3. CRP 5.5. DD 1.13. No ferritin or LDH. -No O2 requirement. -Patient immunosuppressed from RA with Concenyx Literature review for high risk patients not requiring O2, the recommendation is remdesivir and to hold dexamethasone. Will start Remedesivir today. Hold Dexameth. Check doppler of the LE. Consider CTA chest. Repeat markers (2) Fever: Code(s): R50.9 - Fever, unspecified Status: Acute Assessment and Plan: UA noted with moderate squamous cells. Initally felt fever likely secondary to urinary tract infection. -UCx negative -BCx NGTD -CXR showing bilateral perihilar interstitial infiltrates. Abx as above. Fever is resolving. Fever more liekly related to COVID. (3) UTI (urinary tract infection): Code(s): N39.0 - Urinary tract infection, site not specified Status: Acute Assessment and Plan: As above. UCx negative. Renal US normal. UTI ruled out. (4) Rheumatoid arthritis in remission: Code(s): M06.9 - Rheumatoid arthritis, unspecified Status: Acute Assessment and Plan: In remission. On immunosuppressive agents. Hold Concentyx. Follow up in the outpatient setting. (5) Headache: Code(s): R51.9 - Headache, unspecified Status: Acute Assessment and Plan: Improved. Complains of poor sleep. Add melatonin (6) Hypothyroidism (acquired): Code(s): E03.9 - Hypothyroidism, unspecified Status: Acute Assessment and Plan: TSH wnl, continue levothyroxine Plan DVT prophylaxis with Lovenox Code status full code Subjective Date/time seen: 02/01/23 07:10 Interval history: 82yo female with RA, HTN and hypothyroid here for fever. Assuming care. Chart reviewed. She is alert and oriented. She complains of poor appetite and appears to become mildly nauseous with eating. She denies SOB and has minimal cough. She denies CP or abd pain. No dysuria. Exam Narrative: Tm 100.0 97.8 121/60 79 16 98% ra Gen - NARD lying semi-recumbent in bed Chest - CTA bilaterally, nml RR CV - RRR S1/S2 Abd - Soft, NT/ND, Positive BS Ext - No pedal edema Neuro - Alert and oriented x4. Psych - Nml mood and affect Skin - Warm and dry Objective Data Vital Signs Vital Signs: Vital Signs - 24 hr 01/31/23 07:28 01/31/23 14:00 01/31/23 17:43 Temperature 99.7 F H 100 F H 99.8 F H Pulse Rate 90 Respiratory Rate 16 Blood Pressure 132/58 L Pulse Oximetry 98 Oxygen Delivery 01/31/23 10:15 01/31/23 20:00 01/31/23 22:00 Temperature 99.3 F Pulse Rate 79 Respiratory Rate 16 Blood Pressure 139/60 Pulse Oximetry 98 Oxygen Delivery Room Air Room Air 02/01/23 00:30 02/01/23 05:26 Temperature 98.5 F 97.8 F Pulse Rate 79 Respiratory Rate 16 Blood Pressure 121/60 Pulse Oximetry 98 Oxygen Delivery Intake/Output Intake/Output: Intake & Output 01/29/23 01/30/23 01/31/23 02/01/23 23:59 23:59 23:59 23:59 Intake Total 2059 2049 4530 400 Output Total 1400 Balance 660 2049 4530 400 Meds/Results Medications: Active Medications Generic Name Dose Route Start Last Admin Trade Name Freq PRN Reason Stop Dose Admin Acetaminophen 1,000 mg 01/29/23 10:15 01/31/23 13:07 Acetaminophen 500 Mg Tablet PO 1,000 mg Q6H PRN Administration Mild Pain (1-3) or Fever Hydrocodone Bitart/Acetaminophen 1 tab 01/29/23 05:29 01/31/23 22:09 Hydrocodone/Acetaminophen (*Crx) 10-325 Mg Tablet
[2023-02-01] MEDS: GABAPENTIN 100 MG CAPSULE PO ×3 (09:20→16:35)
[2023-02-01] MEDS: CHOLECALCIFEROL 1,000 UNITS TABLET 2000 UNITS PO (09:20)
[2023-02-01] MEDS: ENOXAPARIN 40 MG/0.4 ML SYRINGE SUB-Q (09:20)
[2023-02-01] MEDS: LOSARTAN POTASSIUM 50 MG TABLET PO (09:20)
[2023-02-01] MEDS: VANCOMYCIN 1,250 MG/NS 250 ML 1,250 MG/250 ML BAG 166.67 MG IVPB (09:21)
[2023-02-01 09:31] LABS: Prothrombin Time 13.2 Seconds (11.1-14.7)
[2023-02-01] MEDS: SODIUM CHLORIDE 0.9% IV 1,000 ML 125 ML IV CONT (09:32)
[2023-02-01] MEDS: REMDESIVIR 200 MG/NS 250 ML 200 MG/250 ML BAG 250 MG IVPB (11:08)
[2023-02-01 14:00] VITALS: BP 139/66; PULSE 73; RESP 18; TEMP 36.9; O2SAT 100
--- NOTE | 2023-02-01 15:09 | PCCCNOTE ---
On 02/01/23, the student, [Santa Flores ], provided care and completed [facility] documentation on this patient. I have reviewed the student's documentation and agree with the findings.
[2023-02-01] MEDS: levoFLOXacin 750 MG TABLET PO (16:35)
[2023-02-01 20:00] VITALS: PULSE 69; RESP 16; O2SAT 97
[2023-02-01] MEDS: HYDROcodone/acetaminophen (*CRX) 10-325 MG TABLET 1 TAB PO (20:40)
[2023-02-01] MEDS: DOXYCYCLINE HYCLATE 100 MG TABLET PO (20:40)
[2023-02-01] MEDS: AMITRIPTYLINE HCL 10 MG TABLET PO (20:40)
[2023-02-01] MEDS: MELATONIN 3 MG TABLET PO (20:40)
[2023-02-01 20:43] VITALS: BP 135/58; PULSE 69; RESP 16; TEMP 37.2; O2SAT 97
[2023-02-02 05:16] LABS: Basophils Percent Auto 0.3 % (0.2-1.2); Eosinophils Percent Auto 0.1 % (0-4.4); Hematocrit 32.5 % (37.0-47.0); Hemoglobin 10.6 g/dL (12.0-15.0); Immature Granulocyte Absolute 0.03 K/mm3 (0.00-0.031); Immature Granulocyte Percent A 0.4 % (0-0.5); Lymphocytes Absolute Auto 2.57 K/mm3 (0.9-3.2); Lymphocytes Percent Auto 36.6 % (18.3-44.2); Mean Corpuscular HGB Conc 32.6 g/dl (32-36); Mean Corpuscular Hemoglobin 30.5 pg (26-34); Mean Corpuscular Volume 93.4 fl (80-100); Mean Platelet Volume 9.7 fl (7.4-10.4); Monocytes Absolute Auto 0.4 K/mm3 (0.1-0.6); Monocytes Percent Auto 5.8 % (2.6-8.5); Neutrophils Percent Auto 56.8 % (45.5-73.1); Platelet Count Result 209 k/mm3 (150-375); Red Blood Count 3.48 M/mm3 (4.2-5.4)
[2023-02-02 05:33] LABS: Alanine Aminotransferase 40 U/L (6-35); Alkaline Phosphatase 46 U/L (38-126); Anion Gap 4 mmol/L (8-16); Aspartate Amino Transferase 52 U/L (14-36); Bilirubin,Total 0.2 mg/dL (0.2-1.3); Blood Urea Nitrogen 11 mg/dL (7-17); CRP 2.1 mg/dL (<1.0); Calcium 7.3 mg/dL (8.4-10.2); Carbon Dioxide 23 mmol/L (22-30); Chloride 111 mmol/L (98-107); Estimated CRCL calculation 56 ml/min; Estimated Glomerular Filt Rate > 60; Glucose 86 mg/dL (65-110); Lactate Dehydrogenase 183 U/L (120-246); Potassium 3.4 mmol/L (3.4-5.0); Sodium 138 mmol/L (137-145)
[2023-02-02] MEDS: LEVOTHYROXINE SODIUM 50 MCG TABLET PO (05:53)
[2023-02-02 06:44] VITALS: BP 125/51; PULSE 67; RESP 14; TEMP 36.6; O2SAT 96
[2023-02-02] MEDS: ENOXAPARIN 40 MG/0.4 ML SYRINGE SUB-Q (08:08)
[2023-02-02] MEDS: DOXYCYCLINE HYCLATE 100 MG TABLET PO ×2 (08:08→20:43)
[2023-02-02] MEDS: CHOLECALCIFEROL 1,000 UNITS TABLET 2000 UNITS PO (08:08)
[2023-02-02] MEDS: GABAPENTIN 100 MG CAPSULE PO ×3 (08:09→18:01)
[2023-02-02] MEDS: LOSARTAN POTASSIUM 50 MG TABLET PO (08:09)
[2023-02-02] MEDS: REMDESIVIR 100 MG/NS 250 ML 100 MG/250 ML BAG 250 MG IVPB (10:40)
[2023-02-02] MEDS: HYDROcodone/acetaminophen (*CRX) 10-325 MG TABLET 1 TAB PO ×2 (12:12→20:43)
--- NOTE | 2023-02-02 12:16 | PM.IMPN ---
Progress Note: A&P Assessment and Plan (1) COVID: Code(s): U07.1 - COVID-19 Status: Acute Assessment and Plan: Patient presents with fever. She had abdominal pain and urinary symptoms but urine culture negative. CXR showing bilateral perihilar interstitial infiltrates. Started on Rocephin (01/29) but changed to Vancomycin + Ertapenem (01/30). Ertapenem stopped after 2 doses. Levaquin started 01/31. Dexamethasone started 01/31. Abx de-escalated to oral Doxy and Levaquin on 02/02 -WBC normal. +DDimer -No O2 requirement. -LE venous doppler negative for DVT -Ferritin, LDH normal. CRP down to 2.1 -Patient immunosuppressed from RA with Concenyx Literature review for high risk patients not requiring O2, the recommendation is remdesivir and to hold dexamethasone. Continue Remdesivir Day 2. Check CTA chest. (2) Pneumonia: Code(s): J18.9 - Pneumonia, unspecified organism Status: Acute Assessment and Plan: As above. MRSA nasal swab positive. She is improving with abx with resolution of the fever. Still could be COVID related but will cover to complete a 7 day course of abx. (3) Fever: Code(s): R50.9 - Fever, unspecified Status: Acute Assessment and Plan: UA noted with moderate squamous cells. Initally felt fever likely secondary to urinary tract infection so abx started. -UCx negative -BCx NGTD -CXR showing bilateral perihilar interstitial infiltrates. Abx as above. Fever is resolving. Fever more likely related to COVID and/or PNA. (4) Rheumatoid arthritis in remission: Code(s): M06.9 - Rheumatoid arthritis, unspecified Status: Acute Assessment and Plan: In remission. On immunosuppressive agents. Hold Concentyx. Follow up in the outpatient setting. (5) Headache: Code(s): R51.9 - Headache, unspecified Status: Acute Assessment and Plan: Improved. Complains of poor sleep. Continue melatonin. Continue home Elavil. (6) Hypothyroidism (acquired): Code(s): E03.9 - Hypothyroidism, unspecified Status: Acute Assessment and Plan: TSH wnl, continue levothyroxine (7) UTI (urinary tract infection): Code(s): N39.0 - Urinary tract infection, site not specified Status: Acute Assessment and Plan: As above. UCx negative. Renal US normal. UTI ruled out. Plan DVT prophylaxis with Lovenox Code status full code Subjective Date/time seen: 02/02/23 12:16 Interval history: 82yo female with RA, HTN and hypothyroid here for fever. Patient complains headache and nausea. She still feels short of breath. Persistent cough that is nonproductive. Does have some pleuritic chest pain. Exam Narrative: AF 125/51 67 14 96% ra Gen - NARD sitting up in chair Chest - CTA bilaterally, nml RR CV - RRR S1/S2 Abd - Soft, NT/ND, Positive BS Ext - No pedal edema Neuro - Alert and appropriate but does have redundant questions. Psych -depressed mood Skin - Warm and dry Objective Data Vital Signs Vital Signs: Vital Signs - 24 hr 02/01/23 14:00 02/01/23 20:43 02/01/23 20:00 Temperature 98.5 F 98.9 F Pulse Rate 73 69 69 Respiratory Rate 18 16 16 Blood Pressure 139/66 135/58 L Pulse Oximetry 100 97 97 Oxygen Delivery Room Air 02/02/23 06:44 Temperature 97.9 F Pulse Rate 67 Respiratory Rate 14 Blood Pressure 125/51 L Pulse Oximetry 96 Oxygen Delivery Intake/Output Intake/Output: Intake & Output 01/30/23 01/31/23 02/01/23 02/02/23 23:59 23:59 23:59 23:59 Intake Total 2049 4530 2240 350 Balance 2049 4530 2240 350 Meds/Results Medications: Active Medications Generic Name Dose Route Start Last Admin Trade Name Freq PRN Reason Stop Dose Admin Acetaminophen 1,000 mg 01/29/23 10:15 01/31/23 13:07 Acetaminophen 500 Mg Tablet PO 1,000 mg Q6H PRN Administration Mild Pain (1-3) or Fever Hydrocodone Bitart/Acetaminophen 1 tab 01/29/23
[2023-02-02 14:25] VITALS: BP 140/86; PULSE 89; RESP 16; TEMP 36.6; O2SAT 93
[2023-02-02] MEDS: levoFLOXacin 750 MG TABLET PO (18:01)
[2023-02-02 19:38] VITALS: BP 141/55; PULSE 65; RESP 17; TEMP 36.6; O2SAT 100
[2023-02-02] MEDS: ONDANSETRON INJ 4 MG/2 ML VIAL IV PUSH (20:41)
[2023-02-02] MEDS: AMITRIPTYLINE HCL 10 MG TABLET PO (20:43)
[2023-02-02] MEDS: MELATONIN 3 MG TABLET PO (20:43)
[2023-02-02 22:17] VITALS: O2SAT 98
[2023-02-03 05:20] VITALS: BP 138/53; PULSE 74; RESP 16; TEMP 36.9; O2SAT 95
[2023-02-03] MEDS: LEVOTHYROXINE SODIUM 50 MCG TABLET PO (06:07)
[2023-02-03] MEDS: HYDROcodone/acetaminophen (*CRX) 10-325 MG TABLET 1 TAB PO ×3 (06:07→23:06)
[2023-02-03 06:30] LABS: Basophils Percent Auto 0.1 % (0.2-1.2); Eosinophils Percent Auto 0.4 % (0-4.4); Hematocrit 35.2 % (37.0-47.0); Hemoglobin 11.3 g/dL (12.0-15.0); Immature Granulocyte Absolute 0.03 K/mm3 (0.00-0.031); Immature Granulocyte Percent A 0.4 % (0-0.5); Lymphocytes Absolute Auto 2.39 K/mm3 (0.9-3.2); Lymphocytes Percent Auto 33.2 % (18.3-44.2); Mean Corpuscular HGB Conc 32.1 g/dl (32-36); Mean Corpuscular Hemoglobin 29.8 pg (26-34); Mean Corpuscular Volume 92.9 fl (80-100); Mean Platelet Volume 9.7 fl (7.4-10.4); Monocytes Absolute Auto 0.5 K/mm3 (0.1-0.6); Monocytes Percent Auto 6.7 % (2.6-8.5); Neutrophils Absolute Auto 4.3 K/mm3 (1.3-6.7); Neutrophils Percent Auto 59.2 % (45.5-73.1); Platelet Count Result 252 k/mm3 (150-375); Red Blood Count 3.79 M/mm3 (4.2-5.4); Red Cell Distribution Width 13.7 % (11.5-14.5); White Blood Count 7.2 K/mm3 (4.5-10.0)
[2023-02-03 06:32] LABS: Prothrombin Time 13.5 Seconds (11.1-14.7)
[2023-02-03 06:47] LABS: Alanine Aminotransferase 81 U/L (6-35); Albumin Level 3.1 g/dL (3.5-5.1); Alkaline Phosphatase 55 U/L (38-126); Anion Gap 3 mmol/L (8-16); Aspartate Amino Transferase 90 U/L (14-36); Bilirubin,Total 0.4 mg/dL (0.2-1.3); Blood Urea Nitrogen 11 mg/dL (7-17); Calcium 7.7 mg/dL (8.4-10.2); Carbon Dioxide 26 mmol/L (22-30); Chloride 107 mmol/L (98-107); Estimated CRCL calculation 56 ml/min; Estimated Glomerular Filt Rate > 60; Glucose 86 mg/dL (65-110); Potassium 3.4 mmol/L (3.4-5.0); Sodium 136 mmol/L (137-145)
[2023-02-03 06:52] LABS: Magnesium 1.9 mg/dL (1.6-2.3)
[2023-02-03] MEDS: CHOLECALCIFEROL 1,000 UNITS TABLET 2000 UNITS PO (08:53)
[2023-02-03] MEDS: GABAPENTIN 100 MG CAPSULE PO ×3 (08:53→17:01)
[2023-02-03] MEDS: ENOXAPARIN 40 MG/0.4 ML SYRINGE SUB-Q (08:53)
[2023-02-03] MEDS: LOSARTAN POTASSIUM 50 MG TABLET PO (08:54)
--- NOTE | 2023-02-03 09:48 | PC.NURSE ---
Spoke with Pharmacist Carmen regarding label comments on IV Remdesivir. Clarifying if patient may take PO medications at same time as administration or if the label comment pertained to other IV medications. Pharmacist stated patient is OK to receive both medications at same time.
[2023-02-03] MEDS: REMDESIVIR 100 MG/NS 250 ML 100 MG/250 ML BAG 250 MG IVPB (10:25)
[2023-02-03] MEDS: DOXYCYCLINE HYCLATE 100 MG TABLET PO ×2 (10:26→21:42)
[2023-02-03 13:55] VITALS: BP 133/66; PULSE 72; RESP 18; TEMP 36.8; O2SAT 99
--- NOTE | 2023-02-03 15:18 | PM.IMPN ---
Progress Note: A&P Assessment and Plan (1) COVID: Code(s): U07.1 - COVID-19 Status: Acute Assessment and Plan: Patient presents with fever. She had abdominal pain and urinary symptoms but urine culture negative. CXR showing bilateral perihilar interstitial infiltrates. Started on Rocephin (01/29) but changed to Vancomycin + Ertapenem (01/30). Ertapenem stopped after 2 doses. Levaquin started 01/31. Dexamethasone started 01/31. Abx de-escalated to oral Doxy and Levaquin on 02/02 -WBC normal. +DDimer -No O2 requirement. -LE venous doppler negative for DVT; CTA chest negative for PE -Ferritin, LDH normal. CRP down to 2.1 -Patient immunosuppressed from RA with Concenyx Literature review for high risk patients not requiring O2, the recommendation is remdesivir and to hold dexamethasone. Continue Remdesivir Day 3. (2) Pneumonia: Code(s): J18.9 - Pneumonia, unspecified organism Status: Acute Assessment and Plan: As above. MRSA nasal swab positive. She is improving with abx with resolution of the fever. WBC normal. CTA chest showing LLL and RML PNA. Still could be COVID related but will cover to complete a course of abx. (3) Fever: Code(s): R50.9 - Fever, unspecified Status: Acute Assessment and Plan: UA noted with moderate squamous cells. Initally felt fever likely secondary to urinary tract infection so abx started. Fever more likely related to COVID and/or PNA. -UCx negative -BCx NGTD -CXR showing bilateral perihilar interstitial infiltrates. CTA as above Abx as above. Fever has resolved (4) Rheumatoid arthritis in remission: Code(s): M06.9 - Rheumatoid arthritis, unspecified Status: Acute Assessment and Plan: In remission. On immunosuppressive agents. Hold Concentyx. Follow up in the outpatient setting. (5) Headache: Code(s): R51.9 - Headache, unspecified Status: Acute Assessment and Plan: Improved. Complained of poor sleep but improved with current treatment. Continue melatonin. Continue home Elavil. (6) Hypothyroidism (acquired): Code(s): E03.9 - Hypothyroidism, unspecified Status: Acute Assessment and Plan: TSH wnl, continue levothyroxine (7) UTI (urinary tract infection): Code(s): N39.0 - Urinary tract infection, site not specified Status: Acute Assessment and Plan: As above. UCx negative. Renal US normal. UTI ruled out. Plan DVT prophylaxis with Lovenox Code status full code Subjective Date/time seen: 02/03/23 0830 Interval history: 82yo female with RA, HTN and hypothyroid here for fever. Nausea and vomiting last night but better this morning. Has chronic knee OA better with ice packs. Tolerating some oral intake this morning. Exam Narrative: AF 98.2 133/66 72 18 99% ra Gen - NARD sitting up in chair Chest - CTA bilaterally, nml RR CV - RRR S1/S2 Abd - Soft, NT/ND, Positive BS Ext - trace pedal edema Neuro - Alert and appropriate Psych -depressed mood Skin - Warm and dry Objective Data Vital Signs Vital Signs: Vital Signs - 24 hr 02/02/23 19:38 02/02/23 20:00 02/03/23 05:20 Temperature 97.9 F 98.4 F Pulse Rate 65 74 Respiratory Rate 17 16 Blood Pressure 141/55 H 138/53 L Pulse Oximetry 100 95 Oxygen Delivery Room Air 02/02/23 22:17 02/03/23 08:50 02/03/23 13:55 Temperature 98.2 F Pulse Rate 72 Respiratory Rate 18 Blood Pressure 133/66 Pulse Oximetry 98 99 Oxygen Delivery Room Air Room Air Intake/Output Intake/Output: Intake & Output 01/31/23 02/01/23 02/02/23 02/03/23 23:59 23:59 23:59 23:59 Intake Total 4530 2240 840 420 Balance 4530 2240 840 420 Meds/Results Medications: Active Medications Generic Name Dose Route Start Last Admin Trade Name Freq PRN Reason Stop Dose Admin Acetaminophen 1,000 mg 01/29/23 10:15 01/31/23 13:07 Acetaminophen 500 Mg Tablet PO
[2023-02-03] MEDS: levoFLOXacin 750 MG TABLET PO (17:01)
[2023-02-03 20:23] VITALS: BP 151/65; PULSE 74; RESP 16; TEMP 37.2; O2SAT 98
[2023-02-03] MEDS: MELATONIN 3 MG TABLET PO (21:42)
[2023-02-03] MEDS: AMITRIPTYLINE HCL 10 MG TABLET PO (21:42)
[2023-02-03] MEDS: ONDANSETRON INJ 4 MG/2 ML VIAL IV PUSH (22:17)
[2023-02-04 05:21] VITALS: BP 139/59; PULSE 73; RESP 16; TEMP 37.3; O2SAT 93
[2023-02-04] MEDS: HYDROcodone/acetaminophen (*CRX) 10-325 MG TABLET 1 TAB PO ×3 (05:51→21:38)
[2023-02-04 06:01] LABS: Basophils Percent Auto 0.2 % (0.2-1.2); Eosinophils Percent Auto 0.7 % (0-4.4); Hematocrit 33.8 % (37.0-47.0); Hemoglobin 10.9 g/dL (12.0-15.0); Immature Granulocyte Absolute 0.03 K/mm3 (0.00-0.031); Immature Granulocyte Percent A 0.5 % (0-0.5); Lymphocytes Absolute Auto 1.87 K/mm3 (0.9-3.2); Mean Corpuscular HGB Conc 32.2 g/dl (32-36); Mean Corpuscular Hemoglobin 29.5 pg (26-34); Mean Corpuscular Volume 91.6 fl (80-100); Monocytes Absolute Auto 0.5 K/mm3 (0.1-0.6); Monocytes Percent Auto 9.5 % (2.6-8.5); Neutrophils Absolute Auto 3.2 K/mm3 (1.3-6.7); Neutrophils Percent Auto 56.1 % (45.5-73.1); Platelet Count Result 289 k/mm3 (150-375); Red Blood Count 3.69 M/mm3 (4.2-5.4); Red Cell Distribution Width 13.7 % (11.5-14.5); White Blood Count 5.7 K/mm3 (4.5-10.0)
[2023-02-04 06:04] LABS: INR 1.1; Prothrombin Time 14.8 Seconds (11.1-14.7)
[2023-02-04 06:06] LABS: Alanine Aminotransferase 82 U/L (6-35); Albumin Level 2.8 g/dL (3.5-5.1); Alkaline Phosphatase 53 U/L (38-126); Anion Gap 4 mmol/L (8-16); Aspartate Amino Transferase 73 U/L (14-36); Bilirubin,Total 0.4 mg/dL (0.2-1.3); Blood Urea Nitrogen 11 mg/dL (7-17); Calcium 7.6 mg/dL (8.4-10.2); Carbon Dioxide 28 mmol/L (22-30); Chloride 103 mmol/L (98-107); Estimated CRCL calculation 48 ml/min; Estimated Glomerular Filt Rate > 60; Glucose 91 mg/dL (65-110); Potassium 3.2 mmol/L (3.4-5.0); Sodium 135 mmol/L (137-145)
[2023-02-04] MEDS: LEVOTHYROXINE SODIUM 50 MCG TABLET PO (06:30)
[2023-02-04 07:45] LABS: Magnesium 1.7 mg/dL (1.6-2.3)
[2023-02-04] MEDS: ENOXAPARIN 40 MG/0.4 ML SYRINGE SUB-Q (08:53)
[2023-02-04] MEDS: CHOLECALCIFEROL 1,000 UNITS TABLET 2000 UNITS PO (08:53)
[2023-02-04] MEDS: LOSARTAN POTASSIUM 50 MG TABLET PO (08:54)
[2023-02-04] MEDS: POTASSIUM CHLORIDE 20 MEQ PACKET (FOR LIQUID) 40 MEQ PO (08:54)
[2023-02-04] MEDS: GABAPENTIN 100 MG CAPSULE PO ×3 (08:54→16:56)
[2023-02-04] MEDS: DOXYCYCLINE HYCLATE 100 MG TABLET PO ×2 (11:02→20:11)
[2023-02-04 14:19] VITALS: BP 132/50; PULSE 72; RESP 18; TEMP 37; O2SAT 95
--- NOTE | 2023-02-04 16:12 | PM.IMPN ---
Progress Note: A&P Assessment and Plan (1) COVID: Code(s): U07.1 - COVID-19 Status: Acute Assessment and Plan: Patient presents with fever. She had abdominal pain and urinary symptoms but urine culture negative. CXR showing bilateral perihilar interstitial infiltrates. Started on Rocephin (01/29) but changed to Vancomycin + Ertapenem (01/30). Ertapenem stopped after 2 doses. Levaquin started 01/31. Dexamethasone started 01/31. Abx de-escalated to oral Doxy and Levaquin on 02/02 -WBC normal. +DDimer -No O2 requirement. -LE venous doppler negative for DVT; CTA chest negative for PE -Ferritin, LDH normal. CRP down to 2.1 -Patient immunosuppressed from RA with Concenyx Literature review for high risk patients not requiring O2, the recommendation is remdesivir and to hold dexamethasone. Still having nausea. Related to COVID or medications/narcotics? Zofran available as needed but only has had 2 doses. Continue Remdesivir Day 4. Care coordination consult for placement (2) Pneumonia: Code(s): J18.9 - Pneumonia, unspecified organism Status: Acute Assessment and Plan: As above. MRSA nasal swab positive. She is improving with abx with resolution of the fever. WBC normal. CTA chest showing LLL and RML PNA. Still could be COVID related but will cover for bacterial PNA to complete a course of abx. (3) Fever: Code(s): R50.9 - Fever, unspecified Status: Acute Assessment and Plan: UA noted with moderate squamous cells. Initally felt fever likely secondary to urinary tract infection so abx started. Fever more likely related to COVID and/or PNA. -UCx negative -BCx NGTD -CXR showing bilateral perihilar interstitial infiltrates. CTA as above Abx as above. Fever has resolved (4) Rheumatoid arthritis in remission: Code(s): M06.9 - Rheumatoid arthritis, unspecified Status: Acute Assessment and Plan: In remission. On immunosuppressive agents. Hold Concentyx. Follow up in the outpatient setting. (5) Headache: Code(s): R51.9 - Headache, unspecified Status: Acute Assessment and Plan: Improved. Complained of poor sleep but improved with current treatment. Continue melatonin. Continue home Elavil. (6) Hypothyroidism (acquired): Code(s): E03.9 - Hypothyroidism, unspecified Status: Acute Assessment and Plan: TSH wnl, continue levothyroxine (7) UTI (urinary tract infection): Code(s): N39.0 - Urinary tract infection, site not specified Status: Acute Assessment and Plan: As above. UCx negative. Renal US normal. UTI ruled out. Plan DVT prophylaxis with Lovenox Code status full code Subjective Date/time seen: 02/04/23 16:12 Interval history: 82yo female with RA, HTN and hypothyroid here for fever. Still with nausea and vomiting. And having GERD symptoms. Feels weak. Exam Narrative: AF 98.6 132/50 72 18 95% ra Gen - NARD Chest - decreased BS in the right base CV - RRR S1/S2 Abd - Soft, NT/ND, Positive BS Ext - no pedal edema Neuro - Alert and appropriate Psych -depressed mood Skin - Warm and dry Objective Data Vital Signs Vital Signs: Vital Signs - 24 hr 02/03/23 20:23 02/04/23 05:21 02/04/23 08:51 Temperature 99 F 99.2 F Pulse Rate 74 73 Respiratory Rate 16 16 Blood Pressure 151/65 H 139/59 L Pulse Oximetry 98 93 Oxygen Delivery Room Air 02/04/23 14:19 Temperature 98.6 F Pulse Rate 72 Respiratory Rate 18 Blood Pressure 132/50 L Pulse Oximetry 95 Oxygen Delivery Intake/Output Intake/Output: Intake & Output 02/01/23 02/02/23 02/03/23 02/04/23 23:59 23:59 23:59 23:59 Intake Total 2240 840 540 540 Balance 2240 840 540 540 Meds/Results Medications: Active Medications Generic Name Dose Route Start Last Admin Trade Name Freq PRN Reason Stop Dose Admin Acetaminophen 1,000 mg 01/29/23 10:15 01/31/23 13:07 Acetamino
[2023-02-04] MEDS: levoFLOXacin 750 MG TABLET PO (16:56)
[2023-02-04] MEDS: AMITRIPTYLINE HCL 10 MG TABLET PO (20:11)
[2023-02-04] MEDS: SALINE LOCK FLUSH 10 ML IV PUSH (20:11)
[2023-02-04] MEDS: MELATONIN 3 MG TABLET PO (20:11)
[2023-02-04 20:43] VITALS: BP 136/59; PULSE 75; RESP 16; TEMP 37.1; O2SAT 98
[2023-02-04 22:38] VITALS: O2SAT 97
[2023-02-05] MEDS: SALINE LOCK FLUSH 10 ML IV PUSH ×3 (05:47→21:04)
[2023-02-05] MEDS: LEVOTHYROXINE SODIUM 50 MCG TABLET PO (05:47)
[2023-02-05] MEDS: SALINE LOCK FLUSH 20 ML IV PUSH (05:47)
[2023-02-05 05:59] VITALS: BP 144/60; PULSE 78; RESP 20; TEMP 36.8; O2SAT 94
[2023-02-05 06:20] LABS: Basophils Percent Auto 0.2 % (0.2-1.2); Eosinophils Absolute Auto 0.1 K/mm3 (0-0.3); Eosinophils Percent Auto 1.1 % (0-4.4); Hematocrit 35.1 % (37.0-47.0); Hemoglobin 11.4 g/dL (12.0-15.0); Immature Granulocyte Absolute 0.04 K/mm3 (0.00-0.031); Immature Granulocyte Percent A 0.5 % (0-0.5); Lymphocytes Absolute Auto 2.12 K/mm3 (0.9-3.2); Mean Corpuscular HGB Conc 32.5 g/dl (32-36); Mean Corpuscular Hemoglobin 29.7 pg (26-34); Mean Corpuscular Volume 91.4 fl (80-100); Mean Platelet Volume 9.8 fl (7.4-10.4); Monocytes Absolute Auto 0.7 K/mm3 (0.1-0.6); Monocytes Percent Auto 8.4 % (2.6-8.5); Neutrophils Absolute Auto 5.2 K/mm3 (1.3-6.7); Neutrophils Percent Auto 63.8 % (45.5-73.1); Platelet Count Result 342 k/mm3 (150-375); Red Blood Count 3.84 M/mm3 (4.2-5.4); Red Cell Distribution Width 13.6 % (11.5-14.5); White Blood Count 8.1 K/mm3 (4.5-10.0)
[2023-02-05 06:30] LABS: INR 1.1; Prothrombin Time 14.6 Seconds (11.1-14.7)
[2023-02-05 06:31] LABS: Alanine Aminotransferase 67 U/L (6-35); Alkaline Phosphatase 60 U/L (38-126); Anion Gap 6 mmol/L (8-16); Aspartate Amino Transferase 57 U/L (14-36); Bilirubin,Total 0.5 mg/dL (0.2-1.3); Blood Urea Nitrogen 12 mg/dL (7-17); Carbon Dioxide 27 mmol/L (22-30); Chloride 102 mmol/L (98-107); Estimated CRCL calculation 48 ml/min; Estimated Glomerular Filt Rate > 60; Glucose 92 mg/dL (65-110); Potassium 3.5 mmol/L (3.4-5.0); Sodium 135 mmol/L (137-145)
[2023-02-05] MEDS: CHOLECALCIFEROL 1,000 UNITS TABLET 2000 UNITS PO (08:16)
[2023-02-05] MEDS: ENOXAPARIN 40 MG/0.4 ML SYRINGE SUB-Q (08:17)
[2023-02-05] MEDS: DOXYCYCLINE HYCLATE 100 MG TABLET PO ×2 (08:17→21:04)
[2023-02-05] MEDS: LOSARTAN POTASSIUM 50 MG TABLET PO (08:18)
[2023-02-05] MEDS: HYDROcodone/acetaminophen (*CRX) 10-325 MG TABLET 1 TAB PO ×2 (08:18→21:04)
[2023-02-05] MEDS: GABAPENTIN 100 MG CAPSULE PO ×3 (08:18→17:11)
[2023-02-05] MEDS: REMDESIVIR 100 MG/NS 250 ML 100 MG/250 ML BAG 250 MG IVPB (10:34)
--- NOTE | 2023-02-05 11:00 | PC.NURSE ---
Administration clarification for IV Remdesivir. As of 02/05, patient has received 4 total doses. On 02/03, medication was administered at 1025. On 02/04, medication was administered at 1831. Spoke with Pharmacist Hayley, regarding late administration of dose for 02/04. IV access wasn't obtained until evening. Pharmacist recommended to give medication once access was available.
--- NOTE | 2023-02-05 15:00 | PM.IMPN ---
Progress Note: A&P Assessment and Plan (1) COVID: Code(s): U07.1 - COVID-19 Status: Acute Assessment and Plan: Patient presented with fevers. She had abdominal pain and urinary symptoms but urine culture was negative. CXR showing bilateral perihilar interstitial infiltrates. She was started on Rocephin (01/29) but changed to Vancomycin + Ertapenem (01/30). Ertapenem stopped after 2 doses. Levaquin started 01/31. Dexamethasone started 01/31. Abx de-escalated to oral Doxy and Levaquin on 02/02. She will complete 7 days today. WBC normal. +DDimer but LE venous doppler negative for DVT; CTA chest negative for PE. No O2 requirement. Ferritin, LDH normal. CRP down to 2.1. Patient immunosuppressed from RA with Concenyx. Literature review for high risk patients not requiring O2, the recommendation is remdesivir. Dexamethasone stopped and she completed 5 days of Remdesivir. She remained on room air. Still having nausea: Related to COVID or medications/narcotics? Zofran available as needed. Care coordination consult for placement. Check CXR. (2) Pneumonia: Code(s): J18.9 - Pneumonia, unspecified organism Status: Acute Assessment and Plan: As above. MRSA nasal swab positive. She is improving with abx with resolution of the fever. WBC normal. CTA chest showing LLL and RML PNA. Still could be COVID related but she was covered for bacterial PNA to complete a course of abx. (3) Fever: Code(s): R50.9 - Fever, unspecified Status: Acute Assessment and Plan: UA noted with moderate squamous cells. Initally felt fever likely secondary to urinary tract infection so abx started. Fever more likely related to COVID and/or PNA. -UCx negative -BCx NGTD -CXR showing bilateral perihilar interstitial infiltrates. CTA as above Abx as above. Fever has resolved (4) Rheumatoid arthritis in remission: Code(s): M06.9 - Rheumatoid arthritis, unspecified Status: Acute Assessment and Plan: In remission. On immunosuppressive agents. Hold Concentyx. Follow up in the outpatient setting. (5) Headache: Code(s): R51.9 - Headache, unspecified Status: Acute Assessment and Plan: Improved. Complained of poor sleep but improved with current treatment. Continue melatonin. Continue home Elavil. (6) Hypothyroidism (acquired): Code(s): E03.9 - Hypothyroidism, unspecified Status: Acute Assessment and Plan: TSH wnl, continue levothyroxine (7) UTI (urinary tract infection): Code(s): N39.0 - Urinary tract infection, site not specified Status: Acute Assessment and Plan: As above. UCx negative. Renal US normal. UTI ruled out. Plan DVT prophylaxis with Lovenox Code status full code Subjective Date/time seen: 02/05/23 15:00 Interval history: 82yo female with RA, HTN and hypothyroid here for fever. Still with nausea and vomiting overnight. Not able to eat much. No CP or SOB. No cough Exam Narrative: AF 98.2 144/67 62 16 99% ra Gen - NARD Chest - CTA bilaterally, nml RR CV - RRR S1/S2 Abd - Soft, NT/ND, Positive BS Ext - trace pedal edema Neuro - Alert and appropriate Psych -depressed mood Skin - Warm and dry Objective Data Vital Signs Vital Signs: Vital Signs - 24 hr 02/04/23 20:43 02/04/23 22:38 02/05/23 05:59 Temperature 98.7 F 98.2 F Pulse Rate 75 78 Respiratory Rate 16 20 Blood Pressure 136/59 L 144/60 H Pulse Oximetry 98 97 94 Oxygen Delivery Room Air Intake/Output Intake/Output: Intake & Output 02/02/23 02/03/23 02/04/23 02/05/23 23:59 23:59 23:59 23:59 Intake Total 840 790 910 240 Balance 840 790 910 240 Meds/Results Medications: Active Medications Generic Name Dose Route Start Last Admin Trade Name Freq PRN Reason Stop Dose Admin Acetaminophen 1,000 mg 01/29/23 10:15 01/31/23 13:07 Acetaminophen 500 Mg Tablet PO 1,000 mg Q6H PRN Admin
[2023-02-05 15:01] VITALS: BP 144/67; PULSE 72; RESP 16; TEMP 36.8; O2SAT 99
[2023-02-05] MEDS: METOCLOPRAMIDE HCL 2.5 MG TABLET PO ×2 (17:11→21:04)
[2023-02-05 20:59] VITALS: BP 154/73; PULSE 82; RESP 16; TEMP 37.1; O2SAT 92
[2023-02-05] MEDS: MELATONIN 3 MG TABLET PO (21:04)
[2023-02-05] MEDS: AMITRIPTYLINE HCL 10 MG TABLET PO (21:04)
[2023-02-06 05:23] VITALS: BP 152/64; PULSE 82; RESP 16; TEMP 36.9; O2SAT 95
[2023-02-06] MEDS: LEVOTHYROXINE SODIUM 50 MCG TABLET PO (05:42)
[2023-02-06] MEDS: SALINE LOCK FLUSH 10 ML IV PUSH ×3 (05:42→21:15)
[2023-02-06] MEDS: SALINE LOCK FLUSH 20 ML IV PUSH (05:42)
[2023-02-06] MEDS: METOCLOPRAMIDE HCL 2.5 MG TABLET PO ×2 (05:42→12:15)
[2023-02-06] MEDS: HYDROcodone/acetaminophen (*CRX) 10-325 MG TABLET 1 TAB PO ×3 (05:51→21:15)
[2023-02-06 05:59] LABS: Basophils Percent Auto 0.2 % (0.2-1.2); Eosinophils Absolute Auto 0.1 K/mm3 (0-0.3); Eosinophils Percent Auto 1.1 % (0-4.4); Hemoglobin 11.7 g/dL (12.0-15.0); Immature Granulocyte Absolute 0.04 K/mm3 (0.00-0.031); Immature Granulocyte Percent A 0.4 % (0-0.5); Lymphocytes Absolute Auto 2.43 K/mm3 (0.9-3.2); Mean Corpuscular HGB Conc 33.4 g/dl (32-36); Mean Corpuscular Hemoglobin 30.4 pg (26-34); Mean Corpuscular Volume 90.9 fl (80-100); Mean Platelet Volume 9.4 fl (7.4-10.4); Monocytes Percent Auto 9.1 % (2.6-8.5); Neutrophils Absolute Auto 7.5 K/mm3 (1.3-6.7); Neutrophils Percent Auto 67.2 % (45.5-73.1); Platelet Count Result 371 k/mm3 (150-375); Red Blood Count 3.85 M/mm3 (4.2-5.4); Red Cell Distribution Width 13.7 % (11.5-14.5); White Blood Count 11.1 K/mm3 (4.5-10.0)
[2023-02-06 06:06] LABS: Alanine Aminotransferase 56 U/L (6-35); Alkaline Phosphatase 58 U/L (38-126); Anion Gap 3 mmol/L (8-16); Aspartate Amino Transferase 46 U/L (14-36); Bilirubin,Total 0.6 mg/dL (0.2-1.3); Blood Urea Nitrogen 11 mg/dL (7-17); Calcium 8.1 mg/dL (8.4-10.2); Carbon Dioxide 28 mmol/L (22-30); Chloride 103 mmol/L (98-107); Estimated CRCL calculation 56 ml/min; Estimated Glomerular Filt Rate > 60; Glucose 91 mg/dL (65-110); Potassium 3.5 mmol/L (3.4-5.0); Sodium 134 mmol/L (137-145)
[2023-02-06 08:00] VITALS: PULSE 79; RESP 18; O2SAT 97
[2023-02-06] MEDS: GABAPENTIN 100 MG CAPSULE PO ×3 (09:06→17:32)
[2023-02-06] MEDS: CHOLECALCIFEROL 1,000 UNITS TABLET 2000 UNITS PO (09:06)
[2023-02-06] MEDS: ENOXAPARIN 40 MG/0.4 ML SYRINGE SUB-Q (09:07)
[2023-02-06] MEDS: LOSARTAN POTASSIUM 50 MG TABLET PO (09:07)
[2023-02-06 09:31] LABS: Lipase 67 U/L (23-300)
--- NOTE | 2023-02-06 11:47 | PCPTNOTE ---
reviewed student PT's documentation and agree.
--- NOTE | 2023-02-06 14:21 | PCNWS ---
Weekly nutritional screen. Patient intakes are 5-50% current regular diet. Pt does not like the food at all. Family has been bringing her food so charted intakes are low. No weight loss reported. No nutritional needs at this time.
--- NOTE | 2023-02-06 14:32 | PM.IMPN ---
Progress Note: A&P Assessment and Plan (1) Nausea: Code(s): R11.0 - Nausea Status: Acute Assessment and Plan: Patient with persistent nausea. Initially thought related to COVID but symptoms have persisted. Could be related to abx and antiviral medciations but these have been stopped. Repeat lipase remains normal. RUQ ordered. Now having taste disturbance. Eating no more than 50% of meals. Scheduled Reglan ordered yesterday but not much benefit. Last BM yesterday. She is nauseous but not asking for Zofran (last Zofran dose 02/03). Nausea related to narcotics? Advance Reglan. Add supplements. Back diet off to full liquids. Check obstructive series. (2) COVID: Code(s): U07.1 - COVID-19 Status: Acute Assessment and Plan: Patient presented with fevers. She had abdominal pain and urinary symptoms but urine culture was negative. CXR showing bilateral perihilar interstitial infiltrates. She was started on abx and completed a 7 day course. +DDimer but LE venous doppler negative for DVT; CTA chest negative for PE. No O2 requirement. Ferritin, LDH normal. CRP down to 2.1. Patient immunosuppressed from RA with Concenyx. Literature review for high risk patients not requiring O2 recommended remdesivir and she completed a 5 day course. She remained on room air. Reepat CXR 02/05 showing left basilar airspace disease and minimal effusion. Care coordination consult for placement. (3) Pneumonia: Code(s): J18.9 - Pneumonia, unspecified organism Status: Acute Assessment and Plan: As above. BCx Negative. MRSA nasal swab positive. TA chest showing LLL and RML PNA. Still could be COVID related but she was covered for bacterial PNA to complete a course of abx. She improved with abx with resolution of the fever. (4) Fever: Code(s): R50.9 - Fever, unspecified Status: Acute Assessment and Plan: Fever related to COVID and/or PNA. -UCx negative -BCx negative -CXR showing bilateral perihilar interstitial infiltrates. CTA as above Fever has resolved. She completed a course of abx. (5) Rheumatoid arthritis in remission: Code(s): M06.9 - Rheumatoid arthritis, unspecified Status: Acute Assessment and Plan: In remission. Was on immunosuppressive agents. Holding Concentyx. Follow up in the outpatient setting. (6) Headache: Code(s): R51.9 - Headache, unspecified Status: Acute Assessment and Plan: Improved. Complained of poor sleep but improved with current treatment. Continue melatonin. Continue home Elavil. (7) Hypothyroidism (acquired): Code(s): E03.9 - Hypothyroidism, unspecified Status: Acute Assessment and Plan: TSH wnl, continue levothyroxine (8) UTI (urinary tract infection): Code(s): N39.0 - Urinary tract infection, site not specified Status: Acute Assessment and Plan: As above. UCx negative. Renal US normal. UTI ruled out. Plan DVT prophylaxis with Lovenox Code status full code Subjective Date/time seen: 02/06/23 14:32 Interval history: 82yo female with RA, HTN and hypothyroid here for fever. Still with nausea and vomiting. Eating very poorly. Not moving around much. Does not want to go to a SNF. Having abd pain new today. Also having taste disturbance new today. Exam Narrative: AF 98.5 152/64 82 16 95% ra Gen - NARD Chest - CTA bilaterally, nml RR CV - RRR S1/S2 Abd - Soft, NT/ND, Positive BS Ext - trace pedal edema Psych -depressed mood Skin - Warm and dry Objective Data Vital Signs Vital Signs: Vital Signs - 24 hr 02/05/23 15:01 02/05/23 20:59 02/06/23 05:23 Temperature 98.2 F 98.7 F 98.5 F Pulse Rate 72 82 82 Respiratory Rate 16 16 16 Blood Pressure 144/67 H 154/73 H 152/64 H Pulse Oximetry 99 92 95 Oxygen Delivery 02/06/23 10:29 Temperature Pulse Rate Respiratory Rate Blood Pressure Pulse Oximetry Oxygen
[2023-02-06 16:41] VITALS: BP 145/62; PULSE 79; RESP 18; TEMP 36.9; O2SAT 97
[2023-02-06] MEDS: METOCLOPRAMIDE HCL 5 MG TABLET PO ×2 (17:32→21:15)
[2023-02-06] MEDS: MELATONIN 3 MG TABLET PO (21:15)
[2023-02-06] MEDS: AMITRIPTYLINE HCL 10 MG TABLET PO (21:15)
[2023-02-06 21:39] VITALS: BP 148/56; PULSE 82; RESP 16; TEMP 36.6; O2SAT 96
[2023-02-07] MEDS: HYDROcodone/acetaminophen (*CRX) 10-325 MG TABLET 1 TAB PO ×3 (05:33→17:14)
[2023-02-07] MEDS: LEVOTHYROXINE SODIUM 50 MCG TABLET PO (05:33)
[2023-02-07] MEDS: METOCLOPRAMIDE HCL 5 MG TABLET PO ×3 (05:33→17:15)
[2023-02-07] MEDS: SALINE LOCK FLUSH 10 ML IV PUSH ×2 (05:34→12:31)
[2023-02-07] MEDS: SALINE LOCK FLUSH 20 ML IV PUSH (05:35)
[2023-02-07 05:39] VITALS: BP 148/68; PULSE 84; RESP 18; TEMP 37.1; O2SAT 98
[2023-02-07 05:53] LABS: Basophils Percent Auto 0.2 % (0.2-1.2); Eosinophils Absolute Auto 0.1 K/mm3 (0-0.3); Eosinophils Percent Auto 0.8 % (0-4.4); Hematocrit 36.5 % (37.0-47.0); Hemoglobin 12.1 g/dL (12.0-15.0); Immature Granulocyte Absolute 0.08 K/mm3 (0.00-0.031); Immature Granulocyte Percent A 0.7 % (0-0.5); Lymphocytes Percent Auto 18.6 % (18.3-44.2); Mean Corpuscular HGB Conc 33.2 g/dl (32-36); Mean Corpuscular Hemoglobin 30.1 pg (26-34); Mean Corpuscular Volume 90.8 fl (80-100); Mean Platelet Volume 9.6 fl (7.4-10.4); Monocytes Absolute Auto 1.2 K/mm3 (0.1-0.6); Monocytes Percent Auto 10.8 % (2.6-8.5); Neutrophils Absolute Auto 7.8 K/mm3 (1.3-6.7); Neutrophils Percent Auto 68.9 % (45.5-73.1); Platelet Count Result 454 k/mm3 (150-375); Red Blood Count 4.02 M/mm3 (4.2-5.4); Red Cell Distribution Width 13.6 % (11.5-14.5); White Blood Count 11.3 K/mm3 (4.5-10.0)
[2023-02-07 06:03] LABS: Alanine Aminotransferase 48 U/L (6-35); Albumin Level 3.2 g/dL (3.5-5.1); Alkaline Phosphatase 69 U/L (38-126); Anion Gap 3 mmol/L (8-16); Aspartate Amino Transferase 40 U/L (14-36); Bilirubin,Total 0.7 mg/dL (0.2-1.3); Blood Urea Nitrogen 10 mg/dL (7-17); Calcium 8.2 mg/dL (8.4-10.2); Carbon Dioxide 30 mmol/L (22-30); Chloride 101 mmol/L (98-107); Estimated CRCL calculation 56 ml/min; Estimated Glomerular Filt Rate > 60; Glucose 89 mg/dL (65-110); Potassium 3.4 mmol/L (3.4-5.0); Sodium 134 mmol/L (137-145)
[2023-02-07] MEDS: ENOXAPARIN 40 MG/0.4 ML SYRINGE SUB-Q (08:50)
[2023-02-07] MEDS: CHOLECALCIFEROL 1,000 UNITS TABLET 2000 UNITS PO (08:50)
[2023-02-07] MEDS: LOSARTAN POTASSIUM 50 MG TABLET PO (08:51)
[2023-02-07] MEDS: GABAPENTIN 100 MG CAPSULE PO ×3 (08:51→17:15)
--- NOTE | 2023-02-07 11:31 | PM.DS ---
DS: Admitting Diagnosis Discharge Date 02/07/23 Admitting Diagnosis Fever DS: Discharge Diagnosis Discharge Diagnosis (1) Nausea: Code(s): R11.0 - Nausea Status: Acute (2) COVID: Code(s): U07.1 - COVID-19 Status: Acute (3) Pneumonia: Code(s): J18.9 - Pneumonia, unspecified organism Status: Acute (4) Fever: Code(s): R50.9 - Fever, unspecified Status: Acute (5) Rheumatoid arthritis in remission: Code(s): M06.9 - Rheumatoid arthritis, unspecified Status: Acute (6) Headache: Code(s): R51.9 - Headache, unspecified Status: Acute (7) Hypothyroidism (acquired): Code(s): E03.9 - Hypothyroidism, unspecified Status: Acute (8) UTI (urinary tract infection): Code(s): N39.0 - Urinary tract infection, site not specified Status: Acute DS: Summary Hospital Course Reason for hospitalization: 82yo female with RA, HTN and hypothyroid here for fever. Please see H&P for details. Hospital Course: Patient presented with fevers.? COVID positive. She had abdominal pain and urinary symptoms but urine culture was negative. CXR showing bilateral perihilar interstitial infiltrates. She was started on abx and completed a 7 day course. BCx Negative. MRSA nasal swab positive. CTA chest showing LLL and RML PNA. +DDimer but LE venous doppler negative for DVT; CTA chest negative for PE. No O2 requirement. Ferritin, LDH normal. CRP down to 2.1. Patient immunosuppressed from RA with Concenyx. Literature review for high risk patients not requiring O2 recommended remdesivir and she completed a 5 day course. She remained on room air. Repeat CXR 02/05 showing left basilar airspace disease and minimal effusion. Patient with persistent nausea. Initially thought related to COVID but symptoms have persisted. Could be related to abx and antiviral medications but she completed. Repeat lipase remains normal. LFTs wee mildly elevated and trended down. RUQ showing echogenic liver probably due to steatosis and cholelithiasis but no cholecystitis. Obstructive series showing no acute findngs. She developed taste disturbance later in her hospital course. She still having symptoms but feels better and is ready for discharge. She feels she would eat better at home. She overall did well and was able to be discharged home on 02/07/23 Status at Discharge Cognitive/behavioral status at discharge: stable Time Spent with Patient Time attestation: Total time spent providing and/or coordinating discharge services: 35 minutes Time spent: Greater than 30 minutes Exam Narrative: AF 98.7 148/68 84 18 98% ra Gen - NARD Chest - CTA bilaterally, nml RR CV - RRR S1/S2 Abd - Soft, NT/ND, Positive BS Ext - trace pedal edema Psych - improved mood Skin - Warm and dry DS: Data Data Completed and Pending Labs on day of discharge: Labs from last 24 hours 02/07/23 02/07/23 05:47 05:40 WBC 11.3 H RBC 4.02 L Hgb 12.1 Hct 36.5 L MCV 90.8 MCH 30.1 MCHC 33.2 RDW 13.6 Plt Count 454 H MPV 9.6 Immature Gran % (Auto) 0.7 H Neut % (Auto) 68.9 Lymph % (Auto) 18.6 [place] % (Auto) 10.8 H Eos % (Auto) 0.8 Baso % (Auto) 0.2 Lymph # (Auto) 2.10 [place] # (Auto) 1.2 H Eos # (Auto) 0.1 Baso # (Auto) 0.0 Abs Immat Gran (auto) 0.08 H Absolute Neuts (auto) 7.8 H Absolute Nucleated RBC 0.0 Nucleated RBC % 0.0 Sodium 134 L Potassium 3.4 Chloride 101 Carbon Dioxide 30 Anion Gap 3 L BUN 10 Creatinine 0.60 L Estim Creat Clear Calc 56 Estimated GFR > 60 Glucose 89 Calcium 8.2 L Total Bilirubin 0.7 AST 40 H ALT 48 H Alkaline Phosphatase 69 Total Protein 6.0 L Albumin 3.2 L Discharge Plan Discharge Attending physician on discharge: Leonides Salter Discharging Clinician: Leonides Salter Anticipated Discharge Date/Time: 02/07/23 11:43 Patient Disposition: Home
[2023-02-07 14:40] VITALS: BP 132/62; PULSE 67; RESP 18; TEMP 37.3; O2SAT 99
[2023-02-07] MEDS: NEOMYCIN/POLYMYXIN/BACITRACIN OINTMENT PACKET 1 PACKET (15:40)
--- NOTE | 2023-02-08 08:24 | PCPTNOTE ---
On 02/06/23, the student PT Eda Barragan, provided care and completed [facility] documentation on this patient. I have reviewed the student's documentation and agree with the findings.
== END 2023-02-07 17:40 | disposition home or self-care (01) | DRG 177 ==
LOC: ANHED 01-29 03:29 → ANH2MED 01-29 04:01
PROVIDERS: Student in an Organized Health Care Education/Training Program; Admitting Provider Internal Medicine; Emergency Provider Emergency Medicine; PCP Emergency Medicine; Visit Provider Internal Medicine
DX: U07.1 COVID-19 (principal); J12.82 Pneumonia due to coronavirus disease 2019; J15.9 Unspecified bacterial pneumonia; N39.0 Urinary tract infection, site not specified; I10 Essential (primary) hypertension; E03.9 Hypothyroidism, unspecified; M48.02 Spinal stenosis, cervical region; M06.9 Rheumatoid arthritis, unspecified; Z22.322 Carrier or suspected carrier of Methicillin resistant Staphylococcus aureus; Z87.442 Personal history of urinary calculi
CPT/HCPCS: 36415; 36569; 71045; 71275; 74019; 76705; 76775; 80053; 81001; 82728; 83605; 83615; 83690; 83735; 84145; 84443; 85025; 85380; 85610; 85652; 86140; 87040; 87081; 87086; 87088; 87637; 93970; 96361; 96365; 96368; 97161; 97164; 97165; 99285; A9270; C1751; G0378; J0131; J0248; J0696; J1335; J1650; J1956; J2405; J3370; J7030; J8540; Q9967

== ENCOUNTER 2023-12-04 12:16 | Inpatient (IN) | payer MEDICARE, SELFPAY ==
[2023-12-04] VITALS (17 sets, daily range): BP systolic 108–121; BP diastolic 51–72; PULSE 82–91; RESP 11–18; TEMP 36.1–37; O2SAT 94–98; BMI 27.6
--- NOTE | ~2023-12-04 | XR_ITS ---
XR chest 2V 12/04/2023 12:44 Indication: Cough and weakness. Tremors. Procedure: 2 view chest Comparison: No prior studies for comparison. Findings: Bibasilar airspace disease. No significant effusion. No pneumothorax. No edema. No acute os seous abnormality. Heart size normal. Impression: 1: Bibasilar airspace disease, compatible with pneumonia. Reviewed, dictated and finalized at location B. Impression: 1: Bibasilar airspace disease, compatible with pneumonia.
--- NOTE | ~2023-12-04 | XR_ITS ---
MODIFIED ESOPHAGRAM HISTORY: Possible aspiration TECHNIQUE: Modified barium esophagram was performed on 12/05/2023. I administered fluoroscopy and perf ormed the exam with speech pathologist. Patient was seated for lateral fluoroscopic imaging for radha stion of thin liquids, pudding, solids and quantified amounts, followed by thin liquids in uncontroll ed amounts. This was recorded on tape. A single fluoroscopic spot image was also recorded. The DAP fo r this procedure was 0.903 Gycm2. The amount of fluoroscopy time used during this procedure was 1.6 m inutes. FINDINGS: Oral stage: Adequate function. Pharyngeal stage: There is reduced laryngeal elevation, tongue base retraction and pharyngeal squeeze . There is moderate to large amount of vallecular residue with mild residue in the piriform sinus. No laryngeal penetration or aspiration. Cervical/esophageal stage: Adequate function. IMPRESSION: Mild pharyngeal dysphagia without evident laryngeal penetration or aspiration. Please co rrelate with speech pathologist findings and specific feeding recommendations. Reviewed, dictated and finalized at location A. IMPRESSION: Mild pharyngeal dysphagia without evident laryngeal penetration or aspiration. Please correlate with speech pathologist findings and specific fee ding recommendations.
--- NOTE | 2023-12-04 12:24 | ECG_ITS ---
SEE SCANNED COPY FOR CONFIRMED REPORT MTDD
--- NOTE | 2023-12-04 12:28 | ED.WEAKNESS ---
HPI - Weakness General Chief complaint: Weakness Stated complaint: weakness Time Seen by Provider: 12/04/23 12:21 History of Present Illness HPI Narrative: Pt presents with generalized weakness and shakiness since last night. Pt says ativan helped with the shakes last night but it recurred this morning. Pt denies CP or cough but has some chest congestion. Pt denies fever. Pt denies urinary symptoms. Pt says she has trouble walking due to the weakness. Related Data Home Medications Medication Instructions Recorded Confirmed cholecalciferol (vitamin D3) 50 2,000 unit PO DAILY 10/08/19 05/08/23 mcg (2,000 unit) tablet hydrocodone 10 mg-acetaminophen 1 tablet PO Q6H PRN Pain 04/07/20 05/08/23 325 mg tablet Concentyx 1 dose subcut [id number] 01/29/23 05/08/23 diclofenac sodium 75 mg 75 mg PO BID 01/29/23 05/08/23 tablet,delayed release gabapentin 100 mg capsule 100 mg PO TID 01/29/23 05/08/23 losartan 50 mg tablet 50 mg PO DAILY 01/29/23 05/08/23 Allergies Allergy/AdvReac Type Severity Reaction Status Date / Time nickel Allergy Rash Verified 12/04/23 15:59 Review of Systems Review of Systems: All systems reviewed & are unremarkable except as noted in HPI and below PMFSH Past Medical History Medical History (Updated 12/04/23 @ 16:06 by Radha Goldberg MD) Anxiety disorder, unspecified Chronic bilateral low back pain without sciatica COVID Diverticulitis Elevated platelet count Essential (primary) hypertension Hip pain, bilateral HLD (hyperlipidemia) Hypothyroidism (acquired) Insomnia Lumbar canal stenosis Lumbar spondylosis Nausea Osteoarthritis of hips, bilateral Other chronic pain Pneumonia Preoperative clearance Right lumbar radiculopathy Sepsis UTI (urinary tract infection) Visit for screening mammogram Vitamin D deficiency Surgical History Surgical History (Updated 10/26/23 @ 14:20 by Adina West MA) History of arthroplasty of right hip History of hysterectomy S/P total colectomy Family History Family History Father Family history of emphysema Sibling Family history of emphysema Grandparent Family history of cardiovascular disease Family history of lung cancer Social History Social History Smoking status: Never smoker Second hand tobacco smoke exposure: No Alcohol intake: never Substance use: never Substance use type: does not use Do You Feel Safe in your Home?: Yes Lack of Transportation: No Lack of Food: Never True Current Housing: I Have Housing Concerned About Future Housing: No Difficulty Paying Gas/Electric Bills: No Difficulty Paying for Meds: No Currently Unemployed: No Education: Don't Know Difficulty w/ Childcare or Family Care: No Living arrangements: with family Gender identity (if verbalized by the patient): Female Spiritual care concerns: No Agree to blood products: Yes Exam Const: General: healthy appearing and no acute distress Nutritional Appearance: well nourished Orientation/consciousness: patient oriented x3 Limitations: no limitations Neck: Neck: normal visual inspection and no lymphadenopathy Resp: Effort & Inspection: normal respiratory effort Auscultation: clear to auscultation bilaterally Cardio: Rate: regular rate Rhythm: regular rhythm GI: GI Palp: Yes Soft to palpation and No Tenderness to palpation present (GI) Auscultation: normal bowel sounds Skin: General skin exam: normal color Rashes: no rashes Wounds: no wounds Neuro: General: patient oriented x3, moves all extremities, no meningeal signs, no focal motor deficits and CN's II-XI intact bilaterally Speech: normal speech Extrem: General: normal to inspection and no clubbing, cyanosis or edema Psych: Mental Status: mental status grossly normal Affect: normal affect Attitude: cooperative Course Vital Signs V
[2023-12-04 12:40] LABS: Basophils Percent Auto 0.2 % (0.2-1.2); Eosinophils Percent Auto 0.1 % (0-4.4); Hematocrit 41.6 % (37.0-47.0); Hemoglobin 13.5 g/dL (12.0-15.0); Immature Granulocyte Absolute 0.07 K/mm3 (0.00-0.031); Immature Granulocyte Percent A 0.4 % (0-0.5); Lymphocytes Absolute Auto 2.05 K/mm3 (0.9-3.2); Lymphocytes Percent Auto 11.8 % (18.3-44.2); Mean Corpuscular HGB Conc 32.5 g/dl (32-36); Mean Corpuscular Hemoglobin 30.8 pg (26-34); Mean Platelet Volume 10.3 fl (7.4-10.4); Monocytes Absolute Auto 0.7 K/mm3 (0.1-0.6); Monocytes Percent Auto 4.2 % (2.6-8.5); Neutrophils Absolute Auto 14.5 K/mm3 (1.3-6.7); Neutrophils Percent Auto 83.3 % (45.5-73.1); Platelet Count Result 252 k/mm3 (150-375); Red Blood Count 4.38 M/mm3 (4.2-5.4); Red Cell Distribution Width 13.5 % (11.5-14.5); White Blood Count 17.4 K/mm3 (4.5-10.0)
[2023-12-04 12:54] LABS: Lactic Acid Reflex 1.4 mmol/L (0.7-2.0)
[2023-12-04 12:55] LABS: Prothrombin Time 13.2 Seconds (11.1-14.7)
[2023-12-04 12:56] LABS: Partial Thromboplastin Time 30.7 Seconds (22.3-36.8)
[2023-12-04 13:23] LABS: Appearance Urine Cloudy (Clear); Bacteria Urine None Seen /hpf; Bilirubin Urine Negative (Negative); Blood Urine Trace (Negative); Color Urine Yellow (Yellow); Glucose Urine UA Negative (Negative); Ketones Urine Negative (Negative); Leukocyte Esterase Ur Negative LEU/UL (Negative); Nitrate Urine Negative (Negative); Protein Urine Negative (Negative); RBC Urine 0-2 /hpf (0-2); Specific Grav Ur 1.017 (1.001-1.035); Squamous Epithelial Cell Urine Occasional /hpf (Few); Urobilinogen Urine 0.2 mg/dL (<2.0); WBC Urine 0-5 /hpf (0-3)
[2023-12-04 13:26] LABS: Add Urine Microscopic? YES
[2023-12-04] MEDS: cefTRIAXone 2 GM/NS 100 ML 2 GM/100 ML BAG IVPB (13:48)
[2023-12-04] MEDS: AZITHROMYCIN 500 MG/NS 250 ML 500 MG/250 ML BAG 250 MG IVPB (13:51)
[2023-12-04 15:29] LABS: Alanine Aminotransferase 15 U/L (6-35); Alkaline Phosphatase 76 U/L (38-126); Anion Gap 8 mmol/L (4-12); Aspartate Amino Transferase 25 U/L (14-36); Bilirubin,Total 0.9 mg/dL (0.2-1.3); Blood Urea Nitrogen 15 mg/dL (7-17); Calcium 9.3 mg/dL (8.4-10.2); Carbon Dioxide 21 mmol/L (22-30); Chloride 104 mmol/L (98-107); Estimated CRCL calculation 39 ml/min; Estimated Glomerular Filt Rate 60; Glucose 116 mg/dL (65-110); Sodium 133 mmol/L (137-145)
--- NOTE | 2023-12-04 15:30 | ADMGEN ---
This patient, Emy Yates, was admitted to 2 Medical Room 259-01. Patient/family oriented to hospital policies and general routines including ID bracelet, bed and alarms, visiting hours, pain management, procedures, bathroom and other care routines, personal items, smoking policy, room service/diet, and visiting hours. Information on how to activate the Rapid Response Team has been discussed. Patient/Family are encouraged to report perceived risks to care and to ask questions if they do not understand what they are told or what they should do.
--- NOTE | 2023-12-04 16:04 | PM.IMHP ---
H&P: HPI History of Present Illness Date/Time: 12/04/23 16:04 Chief Complaint: Shaking and weakness and chills Narrative: Ms. Yates is a 83-year-old female with a history of degenerative joint disease, lumbar spondylosis/stenosis, hypertension, anxiety disorder. Presents to [facility] noting she felt very weak while having generalized body shaking along with chills. She also reports concomitant chest congestion and cough but unable to produce sputum. She denies seizure activity loss of consciousness or fall. In [facility] she was given ceftriaxone and azithromycin after chest x-ray revealed pneumonia. Leukocytosis present as well. Review of Systems Review of Systems: All systems reviewed & are unremarkable except as noted in HPI and below (Subjective) PMFSH Past Medical History Medical History (Updated 12/04/23 @ 16:06 by Radha Goldberg MD) Anxiety disorder, unspecified Chronic bilateral low back pain without sciatica COVID Diverticulitis Elevated platelet count Essential (primary) hypertension Hip pain, bilateral HLD (hyperlipidemia) Hypothyroidism (acquired) Insomnia Lumbar canal stenosis Lumbar spondylosis Nausea Osteoarthritis of hips, bilateral Other chronic pain Pneumonia Preoperative clearance Right lumbar radiculopathy Sepsis UTI (urinary tract infection) Visit for screening mammogram Vitamin D deficiency Surgical History Surgical History (Updated 10/26/23 @ 14:20 by Adina West MA) History of arthroplasty of right hip History of hysterectomy S/P total colectomy Family History Family History Father Family history of emphysema Sibling Family history of emphysema Grandparent Family history of cardiovascular disease Family history of lung cancer Social History Social History Smoking status: Never smoker Second hand tobacco smoke exposure: No Alcohol intake: never Substance use: never Substance use type: does not use Do You Feel Safe in your Home?: Yes Lack of Transportation: No Lack of Food: Never True Current Housing: I Have Housing Concerned About Future Housing: No Difficulty Paying Gas/Electric Bills: No Difficulty Paying for Meds: No Currently Unemployed: No Education: Don't Know Difficulty w/ Childcare or Family Care: No Living arrangements: with family Gender identity (if verbalized by the patient): Female Spiritual care concerns: No Agree to blood products: Yes Meds Home Medications and Allergies Home Medications Medication Instructions Recorded Confirmed Type cholecalciferol (vitamin D3) 50 2,000 unit PO DAILY 10/08/19 05/08/23 History mcg (2,000 unit) tablet hydrocodone 10 mg-acetaminophen 1 tablet PO Q6H PRN Pain 04/07/20 05/08/23 History 325 mg tablet Concentyx 1 dose subcut [id number] 01/29/23 05/08/23 History diclofenac sodium 75 mg 75 mg PO BID 01/29/23 05/08/23 History tablet,delayed release gabapentin 100 mg capsule 100 mg PO TID 01/29/23 05/08/23 History losartan 50 mg tablet 50 mg PO DAILY 01/29/23 05/08/23 History levothyroxine 50 mcg tablet See Rx Instructions .Route 04/10/23 05/08/23 Rx .COMPLEX #90 tabs tretinoin 0.1 % topical cream 1 applic topical DAILY #45 grams 05/08/23 Rx valacyclovir 500 mg tablet 500 mg PO DAILY #6 tabs 11/01/23 Rx (Valtrex) amitriptyline 10 mg tablet 20 mg PO QHS #180 tabs 11/03/23 Rx Allergies Allergy/AdvReac Type Severity Reaction Status Date / Time nickel Allergy Rash Verified 12/04/23 15:59 Vital Signs Vital Signs - 24 hr 12/04/23 12:17 12/04/23 12:32 12/04/23 12:23 Temperature 98.6 F Pulse Rate 91 86 91 Respiratory Rate 16 16 Blood Pressure 121/57 L Pulse Oximetry 96 96 Oxygen Delivery Room Air 12/04/23 12:31 12/04/23 12:45 12/04/23 12:46 Temperature Pulse Rate 87 84 84 Respiratory Rate 13 16 14 Blood Pre
[2023-12-04 16:08] LABS: CRP 5.5 mg/dL (<1.0)
[2023-12-04] MEDS: SODIUM CHLORIDE 0.9% IV 1,000 ML 100 ML IV CONT (17:45)
[2023-12-04] MEDS: ACETAMINOPHEN 325 MG TABLET 650 MG PO (21:15)
[2023-12-04] MEDS: guaiFENesin 12 HR 600 MG TABCR 1200 MG PO (21:15)
[2023-12-05] MEDS: MAGNESIUM HYDROXIDE SUSP 30 ML UDC 15 ML PO ×3 (00:40→20:17)
[2023-12-05] MEDS: AMITRIPTYLINE HCL 10 MG TABLET 20 MG PO ×2 (00:41→20:18)
[2023-12-05] MEDS: HYDROcodone/acetaminophen (*CRX) 10-325 MG TABLET 1 TAB PO ×3 (04:08→18:18)
[2023-12-05] MEDS: SODIUM CHLORIDE 0.9% IV 1,000 ML 100 ML IV CONT (04:09)
[2023-12-05 05:25] VITALS: BP 131/59; PULSE 84; RESP 16; TEMP 36.4; O2SAT 97
[2023-12-05 05:35] LABS: Basophils Percent Auto 0.4 % (0.2-1.2); Eosinophils Absolute Auto 0.1 K/mm3 (0-0.3); Eosinophils Percent Auto 1.1 % (0-4.4); Hematocrit 37.7 % (37.0-47.0); Hemoglobin 11.8 g/dL (12.0-15.0); Immature Granulocyte Absolute 0.02 K/mm3 (0.00-0.031); Immature Granulocyte Percent A 0.3 % (0-0.5); Lymphocytes Absolute Auto 2.32 K/mm3 (0.9-3.2); Lymphocytes Percent Auto 29.3 % (18.3-44.2); Mean Corpuscular HGB Conc 31.3 g/dl (32-36); Mean Corpuscular Hemoglobin 30.1 pg (26-34); Mean Corpuscular Volume 96.2 fl (80-100); Mean Platelet Volume 10.2 fl (7.4-10.4); Monocytes Absolute Auto 0.5 K/mm3 (0.1-0.6); Monocytes Percent Auto 5.8 % (2.6-8.5); Neutrophils Percent Auto 63.1 % (45.5-73.1); Platelet Count Result 244 k/mm3 (150-375); Red Blood Count 3.92 M/mm3 (4.2-5.4); Red Cell Distribution Width 13.7 % (11.5-14.5); White Blood Count 7.9 K/mm3 (4.5-10.0)
[2023-12-05 05:57] LABS: Anion Gap 3 mmol/L (4-12); Blood Urea Nitrogen 14 mg/dL (7-17); Calcium 8.5 mg/dL (8.4-10.2); Carbon Dioxide 25 mmol/L (22-30); Chloride 111 mmol/L (98-107); Estimated CRCL calculation 49 ml/min; Estimated Glomerular Filt Rate > 60; Glucose 105 mg/dL (65-110); Magnesium 2.3 mg/dL (1.6-2.3); Potassium 3.8 mmol/L (3.4-5.0); Sodium 139 mmol/L (137-145)
--- NOTE | 2023-12-05 07:59 | PM.IMPN ---
Progress Note: A&P Assessment and Plan (1) Pneumonia: Code(s): J18.9 - Pneumonia, unspecified organism Status: Acute (2) Leukocytosis: Code(s): D72.829 - Elevated white blood cell count, unspecified Status: Acute Plan Ms. Yates is a 83-year-old female with a history of degenerative joint disease, lumbar spondylosis/stenosis, hypertension, anxiety disorder. Presents to [place] ER noting she felt very weak while having generalized body shaking along with chills. She also reports concomitant chest congestion and cough but unable to produce sputum. She denies seizure activity loss of consciousness or fall. In [place] ER she was given ceftriaxone and azithromycin after chest x-ray revealed pneumonia. Leukocytosis present as well. Multifocal pneumonia Patient will be treated for community-acquired pneumonia and weakness. x-ray showed Bibasilar airspace disease, compatible with pneumonia. Trend white count. Continue ceftriaxone and azithromycin. Check sputum culture. Volume resuscitation Start guaifenesin as she is having congestion and inability to produce sputum. Consult PT OT. patient's risk of aspiration request speech evaluation and Flagyl p.o. to cover aspiration pneumonia acquired hypothyroidism Continue Synthroid 50 mcg daily p.o. essential hypertension Blood pressure soft Hold losartan FEN: Normal saline at 100 cc/hour. Heart healthy diet. GI prophylaxis: Not indicated DVT prophylaxis: SCDs Lines: Peripheral IV Code Status: Full code Dispo: Stable on medical floor. Subjective Date/time seen: 12/05/23 07:59 Interval history: I saw exam patient today. Patient feels dyspnea improving, still has cough with phlegm. Patient states she choked intermittently recently because so she was eating too fast Exam Narrative: GENERAL: Pleasant, in no acute distress. Well-nourished. - EYES: EOMI. Anicteric. - HENT: Moist mucous membranes. - LUNGS: Clear to auscultation bilaterally, no wheezing, rhonchi, or rales. - CARDIOVASCULAR: Regular rate and rhythm. No murmur. No JVD. - ABDOMEN: Soft, non-tender and non-distended. No palpable masses. - EXTREMITIES: No edema. Peripheral pulses 2+. Non-tender. - NEUROLOGIC: No focal neurological deficits. CN II-XII grossly intact. - PSYCHIATRIC: Awake, Alert and oriented x 3. Appropriate mood and affect. - SKIN: No rashes or lesions. Warm. - LYMPH: No cervical lymphadenopathy. Objective Data Vital Signs Vital Signs: Vital Signs - 24 hr 12/04/23 12:17 12/04/23 12:32 12/04/23 12:23 Temperature 98.6 F Pulse Rate 91 86 91 Respiratory Rate 16 16 Blood Pressure 121/57 L Pulse Oximetry 96 96 Oxygen Delivery Room Air 12/04/23 12:31 12/04/23 12:45 12/04/23 12:46 Temperature Pulse Rate 87 84 84 Respiratory Rate 13 16 14 Blood Pressure 112/57 L Pulse Oximetry 94 95 95 Oxygen Delivery 12/04/23 13:11 12/04/23 13:15 12/04/23 13:16 Temperature Pulse Rate 87 87 85 Respiratory Rate 12 12 12 Blood Pressure 119/59 L Pulse Oximetry 95 95 96 Oxygen Delivery 12/04/23 13:30 12/04/23 13:31 12/04/23 13:45 Temperature Pulse Rate 83 82 83 Respiratory Rate 11 L 14 14 Blood Pressure 116/58 L Pulse Oximetry Oxygen Delivery 12/04/23 14:05 12/04/23 14:33 12/04/23 14:45 Temperature Pulse Rate 83 88 84 Respiratory Rate 13 13 14 Blood Pressure Pulse Oximetry 97 98 Oxygen Delivery 12/04/23 15:10 12/04/23 20:40 12/04/23 21:00 Temperature 96.9 F L Pulse Rate 87 85 Respiratory Rate 18 18 Blood Pressure 108/72 109/51 L Pulse Oximetry 98 97 Oxygen Delivery Room Air 12/05/23 05:25 Temperature 97.6 F Pulse Rate 84 Respiratory Rate 16 Blood Pressure 131/59 L Pulse Oximetry 97 Oxygen Delivery Intake/Output Intake/Output: Intake & Output 12/02/23 12/03/23 12/04/23 12/05/23 23:59 23:59 23:59 23:59 Intake Total 940 1550 Balance 940 1550 Meds/
[2023-12-05 08:31] VITALS: PULSE 81; O2SAT 95
[2023-12-05] MEDS: LOSARTAN POTASSIUM 50 MG TABLET PO (09:05)
[2023-12-05] MEDS: guaiFENesin 12 HR 600 MG TABCR 1200 MG PO ×2 (09:05→20:17)
[2023-12-05] MEDS: GABAPENTIN 100 MG CAPSULE PO ×3 (09:05→17:13)
[2023-12-05] MEDS: LEVOTHYROXINE SODIUM 50 MCG TABLET PO (09:05)
[2023-12-05] MEDS: CHOLECALCIFEROL 1,000 UNITS TABLET 2000 UNITS PO (09:06)
--- NOTE | 2023-12-05 09:59 | PCSTNOTE ---
Please refer to the Bedside Swallow Evaluation in the EMR. Please note, silent aspiration cannot be ruled out at bedside.
[2023-12-05] MEDS: cefTRIAXone 2 GM/NS 100 ML 2 GM/100 ML BAG IVPB (12:40)
[2023-12-05 14:17] VITALS: BP 136/58; PULSE 89; RESP 16; TEMP 36.1; O2SAT 98
--- NOTE | 2023-12-05 15:19 | PC.NURSE ---
pt returned from [facility]
[2023-12-05] MEDS: metroNIDAZOLE 500 MG TABLET PO ×2 (15:49→20:17)
[2023-12-05] MEDS: AZITHROMYCIN 500 MG/NS 250 ML 500 MG/250 ML BAG 250 MG IVPB (15:50)
--- NOTE | 2023-12-05 16:21 | PCSTNOTE ---
Please refer to the Modified Barium Swallow Evaluation in the EMR.
[2023-12-05] MEDS: LEFLUNOMIDE 20 MG TABLET PO (20:18)
[2023-12-05 20:24] VITALS: BP 134/52; PULSE 79; RESP 18; TEMP 36.9; O2SAT 99
[2023-12-06] MEDS: SODIUM CHLORIDE 0.9% IV 1,000 ML 100 ML IV CONT ×2 (00:28→10:42)
[2023-12-06] MEDS: metroNIDAZOLE 500 MG TABLET PO ×3 (05:39→20:29)
[2023-12-06] MEDS: LEVOTHYROXINE SODIUM 50 MCG TABLET PO (05:39)
[2023-12-06] MEDS: HYDROcodone/acetaminophen (*CRX) 10-325 MG TABLET 1 TAB PO ×3 (05:39→18:35)
[2023-12-06 05:44] VITALS: BP 132/48; PULSE 86; RESP 18; TEMP 36.7; O2SAT 96
--- NOTE | 2023-12-06 09:07 | PM.IMPN ---
Progress Note: A&P Assessment and Plan (1) Pneumonia: Code(s): J18.9 - Pneumonia, unspecified organism Status: Acute (2) Leukocytosis: Code(s): D72.829 - Elevated white blood cell count, unspecified Status: Acute Plan Ms. Yates is a 83-year-old female with a history of degenerative joint disease, lumbar spondylosis/stenosis, hypertension, anxiety disorder. Presents to [place] ER noting she felt very weak while having generalized body shaking along with chills. She also reports concomitant chest congestion and cough but unable to produce sputum. She denies seizure activity loss of consciousness or fall. In [place] ER she was given ceftriaxone and azithromycin after chest x-ray revealed pneumonia. Leukocytosis present as well. Multifocal pneumonia Patient will be treated for community-acquired pneumonia and weakness. x-ray showed Bibasilar airspace disease, compatible with pneumonia. Trend white count. Continue ceftriaxone and azithromycin. Check sputum culture. Volume resuscitation Start guaifenesin as she is having congestion and inability to produce sputum. Consult PT OT. patient's risk of aspiration request speech evaluation and Flagyl p.o. to cover aspiration pneumonia 12/05 ?MBS: Mild pharyngeal dysphagia without evident laryngeal penetration or aspiration. patient feels better, leukocytosis resolved continue current antibiotics acquired hypothyroidism Continue Synthroid 50 mcg daily p.o. essential hypertension Blood pressure soft Hold losartan FEN: Normal saline at 100 cc/hour. Heart healthy diet. GI prophylaxis: Not indicated DVT prophylaxis: SCDs Lines: Peripheral IV Code Status: Full code Dispo: Stable on medical floor. Subjective Date/time seen: 12/06/23 09:07 Interval history: I saw exam patient today. Patient feels better today, denies chest pain, shortness of breath. Patient is afebrile, blood pressure stable, leukocytosis resolved Exam Narrative: GENERAL: Pleasant, in no acute distress. Well-nourished. - EYES: EOMI. Anicteric. - HENT: Moist mucous membranes. - LUNGS: Clear to auscultation bilaterally, no wheezing, rhonchi, or rales. - CARDIOVASCULAR: Regular rate and rhythm. No murmur. No JVD. - ABDOMEN: Soft, non-tender and non-distended. No palpable masses. - EXTREMITIES: No edema. Peripheral pulses 2+. Non-tender. - NEUROLOGIC: No focal neurological deficits. CN II-XII grossly intact. - PSYCHIATRIC: Awake, Alert and oriented x 3. Appropriate mood and affect. - SKIN: No rashes or lesions. Warm. - LYMPH: No cervical lymphadenopathy. Objective Data Vital Signs Vital Signs: Vital Signs - 24 hr 12/05/23 14:17 12/05/23 20:24 12/05/23 20:00 Temperature 97 F L 98.5 F Pulse Rate 89 79 Respiratory Rate 16 18 Blood Pressure 136/58 L 134/52 L Pulse Oximetry 98 99 Oxygen Delivery Room Air 12/06/23 05:44 Temperature 98.1 F Pulse Rate 86 Respiratory Rate 18 Blood Pressure 132/48 L Pulse Oximetry 96 Oxygen Delivery Intake/Output Intake/Output: Intake & Output 12/03/23 12/04/23 12/05/23 12/06/23 23:59 23:59 23:59 23:59 Intake Total 940 3500 300 Balance 940 3500 300 Meds/Results Medications: Active Medications Generic Name Dose Route Start Last Admin Trade Name Freq PRN Reason Stop Dose Admin Acetaminophen 650 mg 12/04/23 13:52 12/04/23 21:15 Acetaminophen 325 Mg Tablet PO 650 mg Q4H PRN Administration Mild Pain (1-3) or Fever Hydrocodone Bitart/Acetaminophen 1 tab 12/04/23 22:39 12/06/23 05:39 Hydrocodone/Acetaminophen (*Crx) 10-325 Mg Tablet PO 1 tab Q6H PRN Administration Pain 4-6 Amitriptyline HCl 20 mg 12/04/23 22:40 12/05/23 20:18 Amitriptyline Hcl 10 Mg Tablet PO 20 mg QHS CARA Administration Gabapentin 100 mg 12/05/23 09:00 12/05/23 17:13 Gabapentin 100 Mg Capsule PO 100 mg TID CARA Administration Guaifenesin 1,200 mg 12/04/23 21:00 04
[2023-12-06] MEDS: CHOLECALCIFEROL 1,000 UNITS TABLET 2000 UNITS PO (10:34)
[2023-12-06] MEDS: LOSARTAN POTASSIUM 50 MG TABLET PO (10:36)
[2023-12-06] MEDS: guaiFENesin 12 HR 600 MG TABCR 1200 MG PO ×2 (10:36→20:25)
[2023-12-06] MEDS: MAGNESIUM HYDROXIDE SUSP 30 ML UDC 15 ML PO ×2 (10:36→20:29)
[2023-12-06] MEDS: GABAPENTIN 100 MG CAPSULE PO ×3 (10:36→17:13)
[2023-12-06] MEDS: cefTRIAXone 2 GM/NS 100 ML 2 GM/100 ML BAG IVPB (12:12)
[2023-12-06] MEDS: AZITHROMYCIN 500 MG/NS 250 ML 500 MG/250 ML BAG 250 MG IVPB (14:08)
[2023-12-06 15:36] VITALS: BP 137/58; PULSE 80; RESP 16; TEMP 36.4; O2SAT 100
[2023-12-06] MEDS: AMITRIPTYLINE HCL 10 MG TABLET 20 MG PO (20:28)
[2023-12-06] MEDS: LEFLUNOMIDE 20 MG TABLET PO (20:29)
[2023-12-06 21:01] VITALS: BP 145/64; PULSE 82; RESP 18; TEMP 36.9; O2SAT 98
[2023-12-07] MEDS: metroNIDAZOLE 500 MG TABLET PO (05:17)
[2023-12-07] MEDS: HYDROcodone/acetaminophen (*CRX) 10-325 MG TABLET 1 TAB PO (05:17)
[2023-12-07] MEDS: LEVOTHYROXINE SODIUM 50 MCG TABLET PO (05:17)
[2023-12-07 06:00] VITALS: BP 163/64; PULSE 85; RESP 18; TEMP 37.5; O2SAT 97
[2023-12-07 09:10] VITALS: BP 152/80; PULSE 80; RESP 14; TEMP 36.5; O2SAT 97
[2023-12-07] MEDS: LOSARTAN POTASSIUM 50 MG TABLET PO (09:12)
[2023-12-07] MEDS: GABAPENTIN 100 MG CAPSULE PO (09:12)
[2023-12-07] MEDS: CHOLECALCIFEROL 1,000 UNITS TABLET 2000 UNITS PO (09:12)
[2023-12-07] MEDS: guaiFENesin 12 HR 600 MG TABCR 1200 MG PO (09:12)
[2023-12-07 09:16] LABS: Basophils Percent Auto 0.4 % (0.2-1.2); Eosinophils Absolute Auto 0.1 K/mm3 (0-0.3); Hematocrit 40.7 % (37.0-47.0); Immature Granulocyte Absolute 0.03 K/mm3 (0.00-0.031); Immature Granulocyte Percent A 0.3 % (0-0.5); Lymphocytes Absolute Auto 2.39 K/mm3 (0.9-3.2); Lymphocytes Percent Auto 26.5 % (18.3-44.2); Mean Corpuscular HGB Conc 31.9 g/dl (32-36); Mean Corpuscular Hemoglobin 30.4 pg (26-34); Mean Corpuscular Volume 95.3 fl (80-100); Mean Platelet Volume 9.9 fl (7.4-10.4); Monocytes Absolute Auto 0.6 K/mm3 (0.1-0.6); Monocytes Percent Auto 6.4 % (2.6-8.5); Neutrophils Absolute Auto 5.9 K/mm3 (1.3-6.7); Neutrophils Percent Auto 65.4 % (45.5-73.1); Platelet Count Result 274 k/mm3 (150-375); Red Blood Count 4.27 M/mm3 (4.2-5.4); Red Cell Distribution Width 13.2 % (11.5-14.5)
--- NOTE | 2023-12-07 09:26 | PM.IMPN ---
Progress Note: A&P Assessment and Plan (1) Pneumonia: Code(s): J18.9 - Pneumonia, unspecified organism Status: Acute (2) Leukocytosis: Code(s): D72.829 - Elevated white blood cell count, unspecified Status: Acute Plan Ms. Yates is a 83-year-old female with a history of degenerative joint disease, lumbar spondylosis/stenosis, hypertension, anxiety disorder. Presents to [place] ER noting she felt very weak while having generalized body shaking along with chills. She also reports concomitant chest congestion and cough but unable to produce sputum. She denies seizure activity loss of consciousness or fall. In [place] ER she was given ceftriaxone and azithromycin after chest x-ray revealed pneumonia. Leukocytosis present as well. Multifocal pneumonia Patient will be treated for community-acquired pneumonia and weakness. x-ray showed Bibasilar airspace disease, compatible with pneumonia. Trend white count. Continue ceftriaxone and azithromycin. Check sputum culture. Volume resuscitation Start guaifenesin as she is having congestion and inability to produce sputum. Consult PT OT. patient's risk of aspiration request speech evaluation and Flagyl p.o. to cover aspiration pneumonia 12/05 ?MBS: Mild pharyngeal dysphagia without evident laryngeal penetration or aspiration. patient feels better, leukocytosis resolved continue current antibiotics 12/06 change to oral antibiotics acquired hypothyroidism Continue Synthroid 50 mcg daily p.o. following primary care doctor essential hypertension Blood pressure soft Hold losartan upon arrival Resume home medication blood pressure pumps up loose stools Hold magnesium milk FEN: Normal saline at 100 cc/hour. Heart healthy diet. GI prophylaxis: Not indicated DVT prophylaxis: SCDs Lines: Peripheral IV Code Status: Full code Dispo: Stable on medical floor. Subjective Date/time seen: 12/07/23 09:26 Interval history: I saw exam patient today. Patient feels better today, denies chest pain, shortness of breath. Patient is afebrile, blood pressure stable, leukocytosis resolved. patient has some loose stool, taking magnesium milk Exam Narrative: GENERAL: Pleasant, in no acute distress. Well-nourished. - EYES: EOMI. Anicteric. - HENT: Moist mucous membranes. - LUNGS: Clear to auscultation bilaterally, no wheezing, rhonchi, or rales. - CARDIOVASCULAR: Regular rate and rhythm. No murmur. No JVD. - ABDOMEN: Soft, non-tender and non-distended. No palpable masses. - EXTREMITIES: No edema. Peripheral pulses 2+. Non-tender. - NEUROLOGIC: No focal neurological deficits. CN II-XII grossly intact. - PSYCHIATRIC: Awake, Alert and oriented x 3. Appropriate mood and affect. - SKIN: No rashes or lesions. Warm. - LYMPH: No cervical lymphadenopathy. Objective Data Vital Signs Vital Signs: Vital Signs - 24 hr 12/06/23 12:02 12/06/23 15:36 12/06/23 20:00 Temperature 97.5 F L Pulse Rate 80 Respiratory Rate 16 Blood Pressure 137/58 L Pulse Oximetry 100 Oxygen Delivery Room Air Room Air 12/06/23 21:01 12/07/23 06:00 12/07/23 09:10 Temperature 98.5 F 99.5 F 97.7 F Pulse Rate 82 85 80 Respiratory Rate 18 18 14 Blood Pressure 145/64 H 163/64 H 152/80 H Pulse Oximetry 98 97 97 Oxygen Delivery Intake/Output Intake/Output: Intake & Output 12/04/23 12/05/23 12/06/23 12/07/23 23:59 23:59 23:59 23:59 Intake Total 940 3500 3480 100 Balance 940 3500 3480 100 Meds/Results Medications: Active Medications Generic Name Dose Route Start Last Admin Trade Name Freq PRN Reason Stop Dose Admin Acetaminophen 650 mg 12/04/23 13:52 12/04/23 21:15 Acetaminophen 325 Mg Tablet PO 650 mg Q4H PRN Administration Mild Pain (1-3) or Fever Hydrocodone Bitart/Acetaminophen 1 tab 12/04/23 22:39 12/07/23 05:17 Hydrocodone/Acetaminophen (*Crx) 10-325 Mg Tablet PO 1 tab Q6H PRN Administration
[2023-12-07 09:27] LABS: Alanine Aminotransferase 14 U/L (6-35); Albumin Level 3.8 g/dL (3.5-5.1); Alkaline Phosphatase 64 U/L (38-126); Anion Gap 4 mmol/L (4-12); Aspartate Amino Transferase 29 U/L (14-36); Bilirubin,Total 0.5 mg/dL (0.2-1.3); Blood Urea Nitrogen 7 mg/dL (7-17); Calcium 8.6 mg/dL (8.4-10.2); Carbon Dioxide 23 mmol/L (22-30); Chloride 108 mmol/L (98-107); Estimated CRCL calculation 56 ml/min; Estimated Glomerular Filt Rate > 60; Glucose 89 mg/dL (65-110); Sodium 135 mmol/L (137-145)
--- NOTE | 2023-12-07 09:28 | PM.DS ---
DS: Admitting Diagnosis Discharge Date 12/06 Admitting Diagnosis (1) Pneumonia: ?Code(s): J18.9 - Pneumonia, unspecified organism ?Status:?Acute (2) Leukocytosis: ?Code(s): D72.829 - Elevated white blood cell count, unspecified ?Status:?Acute DS: Discharge Diagnosis Discharge Diagnosis (1) Pneumonia: Code(s): J18.9 - Pneumonia, unspecified organism Status: Acute (2) Leukocytosis: Code(s): D72.829 - Elevated white blood cell count, unspecified Status: Acute DS: Summary Hospital Course Hospital Course: Ms. Yates is a 83-year-old female with a history of degenerative joint disease, lumbar spondylosis/stenosis, hypertension, anxiety disorder. Presents to [place] [facility] noting she felt very weak while having generalized body shaking along with chills. She also reports concomitant chest congestion and cough but unable to produce sputum. She denies seizure activity loss of consciousness or fall. In [place] [facility] she was given ceftriaxone and azithromycin after chest x-ray revealed pneumonia. Leukocytosis present as well. The following med issues have been addressed during hospitalization Multifocal pneumonia Patient will be treated for community-acquired pneumonia and weakness. x-ray showed Bibasilar airspace disease, compatible with pneumonia. Trend white count. Continue ceftriaxone and azithromycin. Check sputum culture. Volume resuscitation Start guaifenesin as she is having congestion and inability to produce sputum. Consult PT OT. patient's risk of aspiration request speech evaluation and Flagyl p.o. to cover aspiration pneumonia 12/05 ?MBS: Mild pharyngeal dysphagia without evident laryngeal penetration or aspiration. patient feels better, leukocytosis resolved continue current antibiotics 12/06 change to oral antibiotics acquired hypothyroidism Continue Synthroid 50 mcg daily p.o. following primary care doctor essential hypertension Blood pressure soft Hold losartan upon arrival Resume home medication blood pressure pumps up loose stools Hold magnesium milk Time Spent with Patient Time attestation: Total time spent providing and/or coordinating discharge services: Exam Narrative: GENERAL: Pleasant, in no acute distress. Well-nourished. - EYES: EOMI. Anicteric. - HENT: Moist mucous membranes. - LUNGS: Clear to auscultation bilaterally, no wheezing, rhonchi, or rales. - CARDIOVASCULAR: Regular rate and rhythm. No murmur. No JVD. - ABDOMEN: Soft, non-tender and non-distended. No palpable masses. - EXTREMITIES: No edema. Peripheral pulses 2+. Non-tender. - NEUROLOGIC: No focal neurological deficits. CN II-XII grossly intact. - PSYCHIATRIC: Awake, Alert and oriented x 3. Appropriate mood and affect. - SKIN: No rashes or lesions. Warm. - LYMPH: No cervical lymphadenopathy. DS: Data Data Completed and Pending Labs on day of discharge: Labs from last 24 hours 12/07/23 08:47 WBC 9.0 RBC 4.27 Hgb 13.0 Hct 40.7 MCV 95.3 MCH 30.4 MCHC 31.9 L RDW 13.2 Plt Count 274 MPV 9.9 Immature Gran % (Auto) 0.3 Neut % (Auto) 65.4 Lymph % (Auto) 26.5 Gilmer % (Auto) 6.4 Eos % (Auto) 1.0 Baso % (Auto) 0.4 Lymph # (Auto) 2.39 Gilmer # (Auto) 0.6 Eos # (Auto) 0.1 Baso # (Auto) 0.0 Abs Immat Gran (auto) 0.03 Absolute Neuts (auto) 5.9 Absolute Nucleated RBC 0.000 Nucleated RBC % 0.0 Sodium 135 L Potassium 4.0 Chloride 108 H Carbon Dioxide 23 Anion Gap 4 BUN 7 D Creatinine 0.60 L Estim Creat Clear Calc 56 Estimated GFR > 60 Glucose 89 Calcium 8.6 Total Bilirubin 0.5 AST 29 ALT 14 Alkaline Phosphatase 64 Total Protein 7.0 Albumin 3.8 Preliminary micro results at discharge 12/04/23 13:08 Blood Culture - Preliminary Blood 12/04/23 13:08 Blood Culture - Preliminary Blood Discharge Plan Discharge Attending physician on discharge: Melissa Hoskins Discharging Clinician: mona
[2023-12-07] MEDS: LOPERAMIDE HCL 2 MG CAPSULE PO (11:24)
== END 2023-12-07 13:20 | disposition home or self-care (01) | DRG 195 ==
LOC: ANHED 13:48 → ANH2MED 14:48
PROVIDERS: Admitting Provider General Practice; Emergency Provider Emergency Medicine; PCP Emergency Medicine; Visit Provider Hospitalist
DX: J18.9 Pneumonia, unspecified organism (principal); E03.9 Hypothyroidism, unspecified; E78.5 Hyperlipidemia, unspecified; F41.9 Anxiety disorder, unspecified; I10 Essential (primary) hypertension; M47.816 Spondylosis without myelopathy or radiculopathy, lumbar region; M16.0 Bilateral primary osteoarthritis of hip; R19.7 Diarrhea, unspecified; Z96.641 Presence of right artificial hip joint; Z86.16 Personal history of COVID-19; Z90.710 Acquired absence of both cervix and uterus; Z90.49 Acquired absence of other specified parts of digestive tract
CPT/HCPCS: 36415; 71046; 80048; 80053; 81001; 83605; 83735; 85025; 85610; 85730; 86140; 87040; 92526; 92610; 92611; 93005; 97161; 97165; 99285; A9270; J0456; J0696; J7030

== ENCOUNTER 2024-04-11 14:03 | Emergency (ER) | payer MEDICARE, SELFPAY ==
[2024-04-11 14:23] VITALS: BP 151/76; PULSE 86; RESP 15; TEMP 36.7; O2SAT 99
--- NOTE | 2024-04-11 14:45 | ED.SKABFB ---
HPI - Skin/Abscess/Foreign Bdy General Chief complaint: Skin/Abscess/Foreign Body Stated complaint: left side of back, rash, tingling Time Seen by Provider: 04/11/24 14:45 Source: patient, RN notes reviewed and old records reviewed Mode of arrival: ambulatory Limitations: no limitations History of Present Illness HPI narrative: Patient presents with 2 separate complaints. First, she complains of a red stinging rash on the left hip. She reports this began less than 24 hours ago and is spreading. She states that the rash stings and long. Patient also complains of darkening of the skin above the upper lip after undergoing a chemical peel about a week ago. She reports that she is ?very lisa and is requesting cream to lighten up the darkening of the skin. She voices no other concerns or complaints at this time. Related Data Home Medications Medication Instructions Recorded Confirmed cholecalciferol (vitamin D3) 50 2,000 unit PO DAILY 10/08/19 04/11/24 mcg (2,000 unit) tablet Concentyx 1 dose subcut [id number] 01/29/23 04/11/24 gabapentin 100 mg capsule 100 mg PO TID 01/29/23 04/11/24 leflunomide 20 mg tablet 20 mg PO QHS 12/04/23 04/11/24 magnesium hydroxide 400 mg/5 mL 15 ml PO BID 12/04/23 04/11/24 oral suspension (Milk of Magnesia) Allergies Allergy/AdvReac Type Severity Reaction Status Date / Time nickel Allergy Rash Verified 04/11/24 14:38 Review of Systems Review of Systems: All systems reviewed & are unremarkable except as noted in HPI and below Constitutional: Constitutional: Reports no additional constitutional complaints ENT: Reports system reviewed and no additional complaints, except as documented Cardiovascular: Cardiovascular: Reports no additional cardiovascular complaints Respiratory: Respiratory: Reports no additional respiratory complaints Gastrointestinal: Gastrointestinal: Reports no additional gastrointestinal complaints Integumentary/Breasts: Skin/Breast: Reports system reviewed and no additional complaints, except as docu and Reports as per HPI [facility] Past Medical History Medical History Anxiety disorder, unspecified Chronic bilateral low back pain without sciatica COVID Diverticulitis Elevated platelet count Essential (primary) hypertension Hip pain, bilateral HLD (hyperlipidemia) Hypothyroidism (acquired) Insomnia Lumbar canal stenosis Lumbar spondylosis Nausea Osteoarthritis of hips, bilateral Other chronic pain Pneumonia Preoperative clearance Right lumbar radiculopathy Sepsis UTI (urinary tract infection) Visit for screening mammogram Vitamin D deficiency Surgical History Surgical History History of arthroplasty of right hip History of hysterectomy S/P total colectomy Family History Family History Father Family history of emphysema Sibling Family history of emphysema Grandparent Family history of cardiovascular disease Family history of lung cancer Social History Social History Smoking status: Never smoker Second hand tobacco smoke exposure: No Alcohol intake: never Substance use: never Substance use type: does not use Do You Feel Safe in your Home?: Yes Lack of Transportation: No Lack of Food: Never True Current Housing: I Have Housing Concerned About Future Housing: No Difficulty Paying Gas/Electric Bills: No Difficulty Paying for Meds: No Currently Unemployed: No Education: Don't Know Difficulty w/ Childcare or Family Care: No Living arrangements: with family Gender identity (if verbalized by the patient): Female Spiritual care concerns: No Agree to blood products: Yes Exam Const: General: cooperative, no acute distress, alert and awake Orientation/consciousness: oriented to person, alfreda
== END 2024-04-11 15:05 | disposition home or self-care (01) ==
PROVIDERS: Emergency Provider Nurse Practitioner Family; PCP Emergency Medicine
DX: L81.1 Chloasma (principal); B02.9 Zoster without complications; I10 Essential (primary) hypertension; E78.5 Hyperlipidemia, unspecified; E03.9 Hypothyroidism, unspecified; M16.0 Bilateral primary osteoarthritis of hip; E55.9 Vitamin D deficiency, unspecified; Z96.641 Presence of right artificial hip joint; Z86.16 Personal history of COVID-19
CPT/HCPCS: 99213; G0463

== ENCOUNTER 2024-05-18 11:10 | Outpatient (CLI) | payer MEDICARE, SELFPAY ==
--- NOTE | ~2024-05-18 | MR_ITS ---
MRI of the lumbar spine Clinical History: Stenosis, back pain Technique: Axial T2-weighted images, and sagittal T1-weighted, T2-weighted, and and T2 fat-sat images were acquired. Findings: No fracture seen. There is minimal grade 1 retrolisthesis of L3 over L4. There is straighte cole of the normal lumbar lordosis. No suspicious bone marrow signal abnormality seen. At L1-L2, there is mild disc bulge and moderate to advanced facet arthropathy. No to spinal canal stenosis or neural foraminal narrowing. At L2-L3, there is disc bulge with severe facet arthropathy, resulting in moderate to severe spinal c anal stenosis/thecal sac compression. Neural foramina are relatively well-preserved, probable minimal narrowing on the right side. At L3-L4, there is severe degenerative disc narrowing. There is mild disc bulge with advanced facet a rthropathy. There is mild central canal stenosis. There is moderate to advanced right neural foramina l narrowing. Left neural foramen preserved. At L4-L5, there is severe degenerative disc narrowing with irregularity about the adjacent endplates. There is mild disc bulge with severe facet arthropathy. No to central canal stenosis. There is se vaibhav bilateral neural foraminal narrowing. At L5-S1, there is moderate degenerative disc narrowing with diffuse disc bulge and severe facet arth ropathy. No to central canal stenosis. There is severe left neural foraminal narrowing. There is m inimal right neural foraminal narrowing. Paravertebral soft tissues are unremarkable. Impression: Advanced degenerative spondylosis, as detailed above. Minimal grade 1 retrolisthesis of L3 over L4. Reviewed, dictated and finalized at location M. Impression: Advanced degenerative spondylosis, as detailed above. Minimal grade 1 retrolisthesis of L3 over L4.
--- NOTE | ~2024-05-18 | XR_ITS ---
EXAM: XR lumbar spine min 4V DATE: 05/18/2024 12:31 HISTORY: Lumbar stenosis . COMPARISON: 02/11/2019. FINDINGS: 5 nonrib-bearing lumbar-type vertebral bodies. Moderate scoliosis. Pedicles intact. Stable grade 1 listheses at L2-3 through L5-S1. Vertebral body heights preserved. Multilevel severe lower l umbar degenerative disc disease, most pronounced at L4-5. Multilevel moderate mid and lower lumbar fa cet arthropathy with interspinous narrowing. No fracture or dislocation. IMPRESSION: Severe multilevel degenerative disc disease. Multilevel grade 1 degenerative listheses. M ultilevel moderate facet arthropathy. Reviewed, dictated and finalized at location K. IMPRESSION: Severe multilevel degenerative disc disease. Multilevel grade 1 deg enerative listheses. Multilevel moderate facet arthropathy.
== END 2024-05-18 11:11 | disposition home or self-care (01) ==
PROVIDERS: PCP Emergency Medicine; Visit Provider Neurological Surgery
DX: M51.369 Other intervertebral disc degeneration, lumbar region without mention of lumbar back pain or lower extremity pain (principal); M43.16 Spondylolisthesis, lumbar region; M47.816 Spondylosis without myelopathy or radiculopathy, lumbar region; M48.062 Spinal stenosis, lumbar region with neurogenic claudication
CPT/HCPCS: 72110; 72148

== ENCOUNTER 2024-05-18 11:20 | Outpatient (CLI) | payer MEDICARE, SELFPAY ==
--- NOTE | ~2024-05-18 | XR_ITS ---
EXAMINATION: XR chest 2V Exam Date/Time: 05/18/2024 12:15 CDT HISTORY: J18.9 - Pneumonia, unspecified organism Comparison: 12/04/2023. RESULT: Lines, tubes, and devices: None. Lungs and pleura: Senescent/emphysematous change, otherwise clear. Cardiomediastinal silhouette: Stable. Other: No acute osseous or upper abdominal finding. IMPRESSION: No acute cardiopulmonary process. Reviewed, dictated and finalized at location K.
== END 2024-05-18 11:21 | disposition home or self-care (01) ==
PROVIDERS: PCP Neurological Surgery; Visit Provider Emergency Medicine
DX: J18.9 Pneumonia, unspecified organism (principal)
CPT/HCPCS: 71046

== ENCOUNTER 2024-07-08 12:07 | Emergency (ER) | payer MEDICARE, SELFPAY ==
--- NOTE | ~2024-07-08 | XR_ITS ---
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 RESULT: Lines, tubes, and devices: None. Lungs and pleura: Segmental airspace disease in the left lower lung. Cardiomediastinal silhouette: Stable. Other: No acute osseous or upper abdominal finding. IMPRESSION: Segmental left lower lung airspace disease, may represent atelectasis or pneumonia. Reviewed, dictated and finalized at location K. TEACHER IMPRESSION: Segmental left lower lung airspace disease, may represent atelectasis or pneumo belen.
[2024-07-08 12:19] VITALS: BP 143/79; PULSE 93; RESP 16; TEMP 36.7; O2SAT 98
--- NOTE | 2024-07-08 14:23 | ED_ITS ---
HPI - Female Genitourinary General Chief complaint: Urogenital-Female <STEFANO Zaldivar Last Filed: 07/08/24 14:31> Stated complaint: protein in urine <STEFANO Zaldivar Last Filed: 07/08/24 14:31> Time Seen by Provider: 07/08/24 14:25 <STEFANO Zaldivar Last Filed: 07/08/24 14:31> Focused HPI: Patient is an 83 y/o female who presents to the ED with c/o abnormal labs. Patient reports she has not felt well for the past 6 weeks. She states she has been recently taken off her biologic therapies for her arthritis. Has hx of ankylosing spondylitis. She states since then, she has been diagnosed with Stage 3 CKD. She then states she was told she had protein in her urine. She is concerned about this. She states she feels ill currently, c/o diffuse weakness, fatigue, intermittent nausea, and had a fever of 102F. Reports pain all over. Denies dysuria, hematuria, cough, cold sx's. GENERAL: Elderly but well-appearing, well-nourished, and in no acute distress. HEAD: Normocephalic, atraumatic. CHEST: Clear to auscultation. ?No respiratory distress. HEART: Regular rate and rhythm.? NEURO: ?Alert and oriented x3. Patient screened in triage and initial orders placed.? ?Additional care and disposition to be based upon?diagnostic testing and treatment. <STEFANO Zaldivar Last Filed: 07/08/24 14:31> Source: patient <STEFANO Zaldivar Last Filed: 07/08/24 14:31> Mode of arrival: ambulatory <STEFANO Zaldivar Last Filed: 07/08/24 14:31> Limitations: no limitations <STEFANO Zaldivar Last Filed: 07/08/24 14:31> Related Data Home medications: Home Medications Medication Instructions Recorded Confirmed cholecalciferol (vitamin D3) 50 2,000 unit PO DAILY 10/08/19 05/16/24 mcg (2,000 unit) tablet gabapentin 100 mg capsule 100 mg PO TID 01/29/23 05/16/24 magnesium hydroxide 400 mg/5 mL 15 ml PO BID 12/04/23 05/16/24 oral suspension (Milk of Magnesia) prednisone 5 mg tablet 5 mg PO DIRECTED PRN 04/29/24 05/16/24 <Tory Ramon PA-C - Last Filed: 07/08/24 14:31> Allergies/Adverse reactions: Allergies Allergy/AdvReac Type Severity Reaction Status Date / Time nickel Allergy Rash Verified 04/17/24 14:52 <Tory Raomn PA-C - Last Filed: 07/08/24 14:31> Review of Systems Review of Systems: All systems are reviewed and are negative unless stated otherwise in the HPI. <Nicole Salas MD - Last Filed: 07/08/24 22:41> PMFSH Past Medical History Medical History: Medical History Anxiety disorder, unspecified Chronic bilateral low back pain without sciatica COVID Diverticulitis Elevated platelet count Essential (primary) hypertension Hip pain, bilateral HLD (hyperlipidemia) Hypothyroidism (acquired) Insomnia Lumbar canal stenosis Lumbar spondylosis Nausea Osteoarthritis of hips, bilateral Other chronic pain Pneumonia Preoperative clearance Right lumbar radiculopathy Sepsis UTI (urinary tract infection) Visit for screening mammogram Vitamin D deficiency <STEFANO Zaldivar Last Filed: 07/08/24 14:31> Surgical History Surgical History: Surgical History History of arthroplasty of right hip History of hysterectomy S/P total colectomy <Tory Ramon PA-C - Last Filed: 07/08/24 14:31> Family History Family History: Family History Father Family history of emphysema Sibling Family history of emphysema Grandparent Family history of cardiovascular disease Family history of lung cancer <Tory Ramon PA-C - Last Filed: 07/08/24 14:31> Social History Social History: Social History Smoking status: Never smoker Second hand tobacco smoke exposure: No Alcohol intake: never Substance use: never Substance use type: does not use Do You Feel Safe in your Home?: Yes Lack of Transportation: No Lack of Food: Never True Current Housing: I Have Housing Concerned About Future Housing: No Difficulty Paying Gas/Electric Bills: No Difficulty Paying for Meds: No Currently Unemployed: No Education: Don't Know Difficulty w/ Childcare or Family Care: No Living arrangements: with family Additional living arrangements comments: With son who has cerebral palsy Occupation/Education: retired 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 HEENT: PERRL, no rhinorrhea, no post nasal drip, oropharynx clear. Neck: Trachea midline, no JVD, no lymphadenopathy. Cardiovascular: Regular rate and rhythm, no murmurs, rubs or gallops, no peripheral edema. Respiratory: Clear to auscultation bilaterally, no tachypnea, no wheezing, no rhonchi, no rubs, no respiratory distress. Abdomen: Soft, nontender, nondistended, no rebound, no guarding, no peritoneal signs. Musculoskeletal: No joint swelling or deformity, normal muscle tone. Skin: No rashes or petechia, no signs of infection. Psychiatric: Alert and oriented, normal behavior and judgment for situation. Neurological: Alert and oriented to person, place, and time. Follows all commands. No focal deficits, speech is clear and fluent. <Nicole Salas MD - Last Filed: 07/08/24 22:41> Course Vital Signs Vital signs: Vital Signs Temperature 98.1 F 07/08/24 12:19 Pulse Rate 93 07/08/24 12:19 Respiratory Rate 16 07/08/24 12:19 Blood Pressure 143/79 H 07/08/24 12:19 Pulse Oximetry 98 07/08/24 12:19 Temperature 98.1 F 07/08/24 12:19 Pulse Rate 87 07/08/24 22:00 Respiratory Rate 15 07/08/24 22:00 Blood Pressure 139/66 07/08/24 22:00 Pulse Oximetry 99 07/08/24 22:00 <Tory Ramon PA-C - Last Filed: 07/08/24 14:31> Vital Signs Temperature 98.1 F 07/08/24 12:19 Pulse Rate 93 07/08/24 12:19 Respiratory Rate 16 07/08/24 12:19 Blood Pressure 143/79 H 07/08/24 12:19 Pulse Oximetry 98 07/08/24 12:19 Temperature 98.1 F 07/08/24 12:19 Pulse Rate 87 07/08/24 22:00 Respiratory Rate 15 07/08/24 22:00 Blood Pressure 139/66 07/08/24 22:00 Pulse Oximetry 99 07/08/24 22:00 <Nicole Salas MD - Last Filed: 07/08/24 22:41> MDM - Female Genitourinary MDM Narrative Medical decision making narrative: MSE by AHMET in triage. <Tory Ramon PA-C - Last Filed: 07/08/24 14:31> MSE by AHMET in triage. The patient was evaluated by myself in the emergency department. History is obtained from patient who is an independent historian and physical exam was performed. External medical records were reviewed at this time. IV was established and pertinent tests were ordered. Laboratory results obtained revealing leukocytosis of 12.8, otherwise unremarkable. Urinalysis revealed 1+ blood otherwise unremarkable. Viral swabs negative. Patient was informed that her kidney function today is normal and her urine does not reveal any proteinurea. Imaging studies obtained included CXR which was independently interpreted by me revealing segmental left lower lung airspace disease, may represent atelectasis or pneumonia, which is pending final radiology interpretation. Differential diagnosis considerations include acute viral syndrome, infectious process such as pneumonia, dehydration, electrolyte derangements. Comorbidities impacting this visit include history of arthritis/enclosing spondylitis. I have evaluated and discussed social determinants of health with the patient that could potentially impact subsequent diagnosis and treatment plans. On repeat assessment of the patient, reevaluation revealed that the patient is doing well and is in no acute distress. Patient symptoms have remained stable since she arrived to our emergency department. Repeat vital signs were all reviewed and noted to be stable. Differential diagnosis and treatment plan were discussed with the patient at bedside. Patient agrees with discussion and after shared medical decision making agrees with /discharge. All questions were answered to the patient's satisfaction. Patient will follow up with her PCP in 3-5 days. Script for Augmentin and doxy was sent to patient's pharmacy to take as prescribed for her lobar pneumonia. Patient was provided with strict return precautions and instructed to return to the emergency department if any new or worsening symptoms develop. The patient was discharged in stable condition. <Nicole Salas MD - Last Filed: 07/08/24 22:41> Lab Data Result diagrams: 07/08/24 14:31 07/08/24 14:31 <Tory Ramon PA-C - Last Filed: 07/08/24 14:31> Labs: Lab Results 07/08/24 07/08/24 07/08/24 Range/Units 14:31 14:47 20:45 WBC 12.8 H (4.5-10.0) K/mm3 RBC 4.92 (4.2-5.4) M/mm3 Hgb 15.2 H (12.0-15.0) g/dL Hct 47.1 H (37.0-47.0) % MCV 95.7 (80-100) fl MCH 30.9 (26-34) pg MCHC 32.3 (32-36) g/dl RDW 13.0 (11.5-14.5) % Plt Count 320 (150-375) k/mm3 MPV 9.9 (7.4-10.4) fl Immature Gran % (Auto) 0.3 (0-0.5) % Neut % (Auto) 64.4 (45.5-73.1) % Lymph % (Auto) 28.5 (18.3-44.2) % [place] % (Auto) 6.0 (2.6-8.5) % Eos % (Auto) 0.5 (0-4.4) % Baso % (Auto) 0.3 (0.2-1.2) % Lymph # (Auto) 3.63 H (0.9-3.2) K/mm3 [place] # (Auto) 0.8 H (0.1-0.6) K/mm3 Eos # (Auto) 0.1 (0-0.3) K/mm3 Baso # (Auto) 0.0 (0.0-0.1) K/mm3 Abs Immat Gran (auto) 0.04 H (0.00-0.031) K/mm3 Absolute Neuts (auto) 8.2 H (1.3-6.7) K/mm3 Absolute Nucleated RBC 0.000 (0.0-0.012) K/mm3 Nucleated RBC % 0.0 (0.0-0.2) % Sodium 137 (137-145) mmol/L Potassium 3.9 (3.4-5.0) mmol/L Chloride 107 (98-107) mmol/L Carbon Dioxide 23 (22-30) mmol/L Anion Gap 7 (4-12) mmol/L BUN 9 (7-17) mg/dL Creatinine 0.70 (0.7-1.0) mg/dL Estim Creat Clear Calc 49 ml/min Estimated GFR > 60 (59 - ) Glucose 100 (65-110) mg/dL Calcium 9.2 (8.4-10.2) mg/dL Total Bilirubin 0.9 (0.2-1.3) mg/dL AST 26 (14-36) U/L ALT 10 (6-35) U/L Alkaline Phosphatase 63 (38-126) U/L Total Protein 8.0 (6.3-8.2) g/dL Albumin 4.5 (3.5-5.1) g/dL Urine Color Yellow (Yellow) Urine Appearance Cloudy H (Clear) Urine pH 5.5 (5.0-9.0) Ur Specific [place] 1.012 (1.001-1.035) Urine Protein Negative (Negative) mg/dL Urine Glucose (UA) Negative (Negative) mg/dL Urine Ketones Negative (Negative) mg/dL Ur Blood (Man) 1+ H (Negative) Urine Nitrate Negative (Negative) Urine Bilirubin Negative (Negative) Urine Urobilinogen 0.2 (<2.0) mg/dL Leukocyte Esterase Rfl Negative (Negative) EARLENE/UL Urine RBC 0-2 (0-2) /hpf Urine WBC 0-5 (0-3) /hpf Ur Squamous Epith Cells Moderate (Few) /hpf Urine Bacteria None seen /hpf Urine Casts 0-2 Influenza A (RT-PCR) Negative (Negative) Influenza B (RT-PCR) Negative (Negative) SARS-CoV-2 RNA (RT-PCR) Negative (Negative) <Tory Ramon PA-C - Last Filed: 07/08/24 14:31> Lab Results 07/08/24 07/08/24 07/08/24 Range/Units 14:31 14:47 20:45 WBC 12.8 H (4.5-10.0) K/mm3 RBC 4.92 (4.2-5.4) M/mm3 Hgb 15.2 H (12.0-15.0) g/dL Hct 47.1 H (37.0-47.0) % MCV 95.7 (80-100) fl MCH 30.9 (26-34) pg MCHC 32.3 (32-36) g/dl RDW 13.0 (11.5-14.5) % Plt Count 320 (150-375) k/mm3 MPV 9.9 (7.4-10.4) fl Immature Gran % (Auto) 0.3 (0-0.5) % Neut % (Auto) 64.4 (45.5-73.1) % Lymph % (Auto) 28.5 (18.3-44.2) % [place] % (Auto) 6.0 (2.6-8.5) % Eos % (Auto) 0.5 (0-4.4) % Baso % (Auto) 0.3 (0.2-1.2) % Lymph # (Auto) 3.63 H (0.9-3.2) K/mm3 [place] # (Auto) 0.8 H (0.1-0.6) K/mm3 Eos # (Auto) 0.1 (0-0.3) K/mm3 Baso # (Auto) 0.0 (0.0-0.1) K/mm3 Abs Immat Gran (auto) 0.04 H (0.00-0.031) K/mm3 Absolute Neuts (auto) 8.2 H (1.3-6.7) K/mm3 Absolute Nucleated RBC 0.000 (0.0-0.012) K/mm3 Nucleated RBC % 0.0 (0.0-0.2) % Sodium 137 (137-145) mmol/L Potassium 3.9 (3.4-5.0) mmol/L Chloride 107 (98-107) mmol/L Carbon Dioxide 23 (22-30) mmol/L Anion Gap 7 (4-12) mmol/L BUN 9 (7-17) mg/dL Creatinine 0.70 (0.7-1.0) mg/dL Estim Creat Clear Calc 49 ml/min Estimated GFR > 60 (59 - ) Glucose 100 (65-110) mg/dL Calcium 9.2 (8.4-10.2) mg/dL Total Bilirubin 0.9 (0.2-1.3) mg/dL AST 26 (14-36) U/L ALT 10 (6-35) U/L Alkaline Phosphatase 63 (38-126) U/L Total Protein 8.0 (6.3-8.2) g/dL Albumin 4.5 (3.5-5.1) g/dL Urine Color Yellow (Yellow) Urine Appearance Cloudy H (Clear) Urine pH 5.5 (5.0-9.0) Ur Specific [place] 1.012 (1.001-1.035) Urine Protein Negative (Negative) mg/dL Urine Glucose (UA) Negative (Negative) mg/dL Urine Ketones Negative (Negative) mg/dL Ur Blood (Man) 1+ H (Negative) Urine Nitrate Negative (Negative) Urine Bilirubin Negative (Negative) Urine Urobilinogen 0.2 (<2.0) mg/dL Leukocyte Esterase Rfl Negative (Negative) EARLENE/UL Urine RBC 0-2 (0-2) /hpf Urine WBC 0-5 (0-3) /hpf Ur Squamous Epith Cells Moderate (Few) /hpf Urine Bacteria None seen /hpf Urine Casts 0-2 Influenza A (RT-PCR) Negative (Negative) Influenza B (RT-PCR) Negative (Negative) SARS-CoV-2 RNA (RT-PCR) Negative (Negative) <Nicole Salas MD - Last Filed: 07/08/24 22:41> Discharge Plan Discharge Clinical Impression: Pneumonia <Tory Ramon PA-C - Last Filed: 07/08/24 14:31> Patient Disposition: Home, Self-Care <STEFANO Zaldivar Last Filed: 07/08/24 14:31> Condition: Stable <Tory Ramon PA-C - Last Filed: 07/08/24 14:31> Instructions: Antibiotic Form, Bacterial Pneumonia (DC) <STEFANO Zaldivar Last Filed: 07/08/24 14:31> Additional Instructions: Please follow-up with your family doctor within the next 3-5 days. Return to the emergency department if any new or worsening symptoms develop. Take the prescribed antibiotics as instructed. <STEFANO Zaldivar Last Filed: 07/08/24 14:31> Prescriptions: New amoxicillin-pot clavulanate 875-125 mg tablet 1 tablet PO Q12H 5 Days Qty: 10 0RF doxycycline hyclate 100 mg capsule 100 mg PO BID 5 Days Qty: 10 0RF No Action valacyclovir [Valtrex] 1 gram tablet 1,000 mg PO Q8H Qty: 21 0RF prednisone 5 mg tablet 5 mg PO DIRECTED PRN Rx Instructions: see taper instructions losartan 50 mg tablet See Rx Instructions .ROUTE .COMPLEX Qty: 90 2RF Dose Instruction: TAKE 1 TABLET BY MOUTH DAILY Rx Instructions: TAKE 1 TABLET BY MOUTH DAILY zolpidem [Ambien] 5 mg tablet 5 mg PO QHS Qty: 30 0RF cholecalciferol (vitamin D3) 50 mcg (2,000 unit) tablet 2,000 unit PO DAILY magnesium hydroxide [Milk of Magnesia] 400 mg/5 mL Suspension 15 ml PO BID gabapentin 100 mg capsule 100 mg PO TID amitriptyline 10 mg tablet See Rx Instructions .ROUTE .COMPLEX Qty: 180 2RF Dose Instruction: TAKE 2 TABLETS BY MOUTH EVERY DAY AT BEDTIME Rx Instructions: TAKE 2 TABLETS BY MOUTH EVERY DAY AT BEDTIME levothyroxine 50 mcg tablet See Rx Instructions .ROUTE .COMPLEX Qty: 90 3RF Dose Instruction: TAKE 1 TABLET BY MOUTH DAILY Rx Instructions: TAKE 1 TABLET BY MOUTH DAILY tretinoin 0.1 % cream See Rx Instructions .ROUTE .COMPLEX Qty: 20 0RF Dose Instruction: APPLY TOPICALLY TO FACE DAILY Rx Instructions: APPLY TOPICALLY TO FACE DAILY <STEFANO Zaldivar Last Filed: 07/08/24 14:31> Follow-up/Referrals: Royce,Moy Jovel MD [Primary Care Provider] - 3 Days <Tory Ramon PA-C - Last Filed: 07/08/24 14:31> Time of Disposition: 21:54 <Tory Ramon PA-C - Last Filed: 07/08/24 14:31> 21:54 <Nicole Salas MD - Last Filed: 07/08/24 22:41>
[2024-07-08 14:39] LABS: Basophils Percent Auto 0.3 % (0.2-1.2); Eosinophils Absolute Auto 0.1 K/mm3 (0-0.3); Eosinophils Percent Auto 0.5 % (0-4.4); Hematocrit 47.1 % (37.0-47.0); Hemoglobin 15.2 g/dL (12.0-15.0); Immature Granulocyte Absolute 0.04 K/mm3 (0.00-0.031); Immature Granulocyte Percent A 0.3 % (0-0.5); Lymphocytes Absolute Auto 3.63 K/mm3 (0.9-3.2); Lymphocytes Percent Auto 28.5 % (18.3-44.2); Mean Corpuscular HGB Conc 32.3 g/dl (32-36); Mean Corpuscular Hemoglobin 30.9 pg (26-34); Mean Corpuscular Volume 95.7 fl (80-100); Mean Platelet Volume 9.9 fl (7.4-10.4); Monocytes Absolute Auto 0.8 K/mm3 (0.1-0.6); Neutrophils Absolute Auto 8.2 K/mm3 (1.3-6.7); Neutrophils Percent Auto 64.4 % (45.5-73.1); Platelet Count Result 320 k/mm3 (150-375); Red Blood Count 4.92 M/mm3 (4.2-5.4); White Blood Count 12.8 K/mm3 (4.5-10.0)
[2024-07-08 14:57] LABS: Alanine Aminotransferase 10 U/L (6-35); Albumin Level 4.5 g/dL (3.5-5.1); Alkaline Phosphatase 63 U/L (38-126); Anion Gap 7 mmol/L (4-12); Aspartate Amino Transferase 26 U/L (14-36); Bilirubin,Total 0.9 mg/dL (0.2-1.3); Blood Urea Nitrogen 9 mg/dL (7-17); Calcium 9.2 mg/dL (8.4-10.2); Carbon Dioxide 23 mmol/L (22-30); Chloride 107 mmol/L (98-107); Estimated CRCL calculation 49 ml/min; Estimated Glomerular Filt Rate > 60; Glucose 100 mg/dL (65-110); Potassium 3.9 mmol/L (3.4-5.0); Sodium 137 mmol/L (137-145)
[2024-07-08 15:09] LABS: Add Urine Microscopic? YES; Appearance Urine Cloudy (Clear); Bacteria Urine None Seen /hpf; Bilirubin Urine Negative (Negative); Blood Urine 1+ (Negative); Color Urine Yellow (Yellow); Glucose Urine UA Negative (Negative); Ketones Urine Negative (Negative); Leukocyte Esterase Ur Negative LEU/UL (Negative); Nitrate Urine Negative (Negative); Non Pathogenic Casts 0-2; Protein Urine Negative (Negative); RBC Urine 0-2 /hpf (0-2); Specific Grav Ur 1.012 (1.001-1.035); Squamous Epithelial Cell Urine Moderate /hpf (Few); Urobilinogen Urine 0.2 mg/dL (<2.0); WBC Urine 0-5 /hpf (0-3); pH Urine 5.5 (5.0-9.0)
[2024-07-08 21:43] LABS: Influenza A QL RT-PCR Negative (Negative); Influenza B QL RT-PCR Negative (Negative); SARS-CoV-2 RNA PCR Negative (Negative)
[2024-07-08 22:00] VITALS: BP 139/66; PULSE 87; RESP 15; O2SAT 99
== END 2024-07-08 22:30 | disposition home or self-care (01) ==
PROVIDERS: Physician Assistant; Emergency Provider Emergency Medicine; PCP Neurological Surgery
DX: J18.9 Pneumonia, unspecified organism (principal); Z20.822 Contact with and (suspected) exposure to COVID-19; F41.9 Anxiety disorder, unspecified; I10 Essential (primary) hypertension; E78.5 Hyperlipidemia, unspecified; E03.9 Hypothyroidism, unspecified; M19.90 Unspecified osteoarthritis, unspecified site; Z87.440 Personal history of urinary (tract) infections; G89.29 Other chronic pain
CPT/HCPCS: 36415; 71045; 80053; 81001; 85025; 87636; 99283

== ENCOUNTER 2025-06-03 23:40 | Emergency (ER) | payer MEDICARE, SELFPAY ==
--- OUTSIDE RECORDS SUMMARY | 2009-03-02 11:30 | XMS_ITS | Continuity of Care Document ---
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 [address] [place], [address], [place]. tel:[phone] Family History Family Member Type Diagnosis Age At Onset No Information Payers Payer name Insurance type Covered libertarian ID Authoriza tion(s) No Information Social History Type Description Quantity Date Captured Comments Sex Female Smoking Status No Information Chief Complaint And Reason For Visit No Information Reason For Referral Reason For Referral No Information History Of Present Illness Encounter Date Complaint History Of Prese nt Illness No Information Functional Status Date Functional Assessmen t No Information Instructions Date Instruction Additional Infor mation No Information Assessments Type Assessment Date No Information Patient Care Teams Name Effective Dates (start - stop) Status Members No Information
--- NOTE | ~2025-06-03 | CT_ITS ---
EXAMINATION: CT abdomen pelvis w con DATE: 06/04/2025 01:08 INDICATION: Abdominal pain. TECHNIQUE: Computed tomography (CT) of the abdomen and pelvis was performed with 100 mL Omnipaque 350 intravenous contrast. Automated exposure control and iterative reconstruction technique were employed. The dose-length product was 567.33 mGy-cm. COMPARISON: CT abdomen and pelvis 01/20/2014 FINDINGS: The visualized portions of lung bases demonstrate airspace opacities and crazy paving pattern in the the lower lobes and crazy paving pattern in right middle lobe. No pleural effusion. The heart size is normal. No pericardial effusion. There is diffuse hepatic steatosis. There is a gallstone in the gallbladder which is normal in size. Calcifications in the spleen are consistent with old granulomatous disease. The pancreas, adrenal glands, and left kidney are normal. There is a 10 mm cyst in right kidney. There are no dilated loops of bowel. There are changes of partial colectomy. There are no pathologically enlarged lymph nodes. There is no free intraperitoneal fluid. There is a total right hip arthroplasty. There is severe lumbar spondylosis. Lumbar levoscoliosis is noted. IMPRESSION: 1. Opacities in the lower lobes and right middle lobe of the lungs, consistent with pneumonia. Reviewed, dictated and finalized at location E.
[2025-06-03 23:41] VITALS: BP 146/77; PULSE 105; RESP 14; TEMP 36.7; O2SAT 97
--- NOTE | 2025-06-04 00:29 | ED.ABDPAIN ---
HPI - Abdominal Pain General Chief Complaint: Abdominal Pain <Sarah Stringer APRN - Last Filed: 06/04/25 03:36> Stated Complaint: CONSTIPATION <Sarah Stringer APRN - Last Filed: 06/04/25 03:36> Time Seen by Provider: 06/04/25 00:09 <Sarah Stringer APRN - Last Filed: 06/04/25 03:36> History of Present Illness HPI narrative: Patient is an 84-year-old female presents to the ER with abdominal pain and ?feeling unwell. She reports she has been unable to eat or a bowel movement in over 4 days. Patient reports she stopped taking milk of magnesia couple of months ago. She endorses nausea but denies vomiting. Patient denies any recent fevers, urinary symptoms, or acute back pain. She endorses a history of cervical stenosis, for which she takes narcotic pain medication. Patient also endorses a history of a colectomy, small-bowel obstruction, and recent urinary tract infection. <Sarah Stringer APRN - Last Filed: 06/04/25 03:36> Related Data Home Medications: Home Medications ?Medication ?Instructions ?Recorded ?Confirmed ?Last Taken ?Type magnesium hydroxide 400 mg/5 mL 15 ml PO BID PRN 07/16/24 05/27/25 Unknown History oral suspension (Milk of Magnesia) oxycodone 7.5 mg tablet,oral ONLY 7.5 mg PO BID PRN 11/06/24 05/27/25 Unknown History (not for feeding tubes) prednisone 5 mg tablet 5 mg PO TID PRN 02/10/25 05/27/25 Unknown History <Sarah Stringer APRN - Last Filed: 06/04/25 03:36> Allergies/Adverse Reactions: Allergies Allergy/AdvReac Type Severity Reaction Status Date / Time secukinumab (From [employer]) Allergy Severe Seizure Verified 06/04/25 00:18 nickel Allergy Rash Verified 06/04/25 00:18 <Sarah Stringer APRN - Last Filed: 06/04/25 03:36> Review of Systems Review of Systems: All systems reviewed & are unremarkable except as noted in HPI and below <Sarah Stringer APRN - Last Filed: 06/04/25 03:36> [facility] Past Medical History Medical History: Medical History UTI (urinary tract infection) Pneumonia Fever Lumbar spondylosis Osteoarthritis of hips, bilateral Insomnia Diverticulitis Vitamin D deficiency Visit for screening mammogram Right lumbar radiculopathy Preoperative clearance Other chronic pain Lumbar canal stenosis Hip pain, bilateral Essential (primary) hypertension Elevated platelet count Chronic bilateral low back pain without sciatica Anxiety disorder, unspecified Nausea Pneumonia COVID Sepsis Hypothyroidism (acquired) HLD (hyperlipidemia) <Sarah Stringer APRN - Last Filed: 06/04/25 03:36> Surgical History Surgical History: Surgical History History of hysterectomy History of arthroplasty of right hip S/P total colectomy <Sarah Stringer APRN - Last Filed: 06/04/25 03:36> Family History Family History: Family History Father Family history of emphysema Sibling Family history of emphysema Grandparent Family history of cardiovascular disease Family history of lung cancer <Sarah Stringer APRN - Last Filed: 06/04/25 03:36> Social History Social History: Social History Smoking status: Never smoker Second hand tobacco smoke exposure: No Alcohol intake: never Substance use: never Substance use type: does not use Do You Feel Safe in your Home?: Yes Lack of Transportation: No Lack of Food: Never True Current Housing: I Have Housing Concerned About Future Housing: No Difficulty Paying Gas/Electric Bills: No Difficulty Paying for Meds: No Currently Unemployed: No Difficulty w/ Childcare or Family Care: No Living arrangements: with family Additional living arrangements comments: With son who has cerebral palsy Occupation/Education: retired 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 HEAD: Normocephalic, atraumatic. NECK: Supple. No adenopathy, no masses. RESPIRATORY: Airway patent, respirations nonlabored. Clear to auscultation bilaterally, no rales, rhonchi, wheezing. CARDIOVASCULAR: Regular rate and rhythm without murmurs, rubs, or gallops. Peripheral pulses 2+ and equal bilaterally. ABDOMINAL: Soft, diffuse tenderness, + distended. Hypoactive BS. MUSCULOSKELETAL: Moves all extremities. Strength/ROM intact without gross deformities. SKIN: Warm, dry, normal color. No rashes. NEURO: A&O X3. Speech clear. Cranial nerves II-XII intact. No ataxic movements. PSYCHIATRIC: Appropriate mood and affect. Normal interaction. <Sarah Stringer APRN - Last Filed: 06/04/25 03:36> Course Course Emergency Course: Patient care signed over by previous provider pending CT results. CT shows no evidence of obstruction or any intra-abdominal infection or free fluid. History of small-bowel resection is noted. Patient is hemodynamically stable in workup unremarkable. Did have a bowel movement here. Sent home with Mag citrate and MiraLax as needed. Will follow-up with regular doctor and given return precautions. <Owen Lucio MD - Last Filed: 06/04/25 07:11> Vital Signs Vital signs: Vital Signs Temperature 36.7 C 06/03/25 23:41 Pulse Rate 105 H 06/03/25 23:41 Respiratory Rate 14 06/03/25 23:41 Blood Pressure 146/77 H 06/03/25 23:41 Pulse Oximetry 97 06/03/25 23:41 Oxygen Delivery Room Air 06/03/25 23:41 Temperature 36.7 C 06/03/25 23:41 Pulse Rate 94 06/04/25 03:46 Respiratory Rate 18 06/04/25 03:46 Blood Pressure 164/95 H 06/04/25 03:46 Pulse Oximetry 99 06/04/25 03:46 Oxygen Delivery Room Air 06/03/25 23:41 <Sarah Stringer APRN - Last Filed: 06/04/25 03:36> Vital Signs Temperature 36.7 C 06/03/25 23:41 Pulse Rate 105 H 06/03/25 23:41 Respiratory Rate 14 06/03/25 23:41 Blood Pressure 146/77 H 06/03/25 23:41 Pulse Oximetry 97 06/03/25 23:41 Oxygen Delivery Room Air 06/03/25 23:41 Temperature 36.7 C 06/03/25 23:41 Pulse Rate 94 06/04/25 03:46 Respiratory Rate 18 06/04/25 03:46 Blood Pressure 164/95 H 06/04/25 03:46 Pulse Oximetry 99 06/04/25 03:46 Oxygen Delivery Room Air 06/03/25 23:41 <Owen Lucio MD - Last Filed: 06/04/25 07:11> MDM - Abdominal Pain MDM Narrative Medical decision making narrative: Patient is an 84-year-old female presents to the ER with abdominal pain and ?feeling unwell. She reports she has been unable to eat or a bowel movement in over 4 days. Patient reports she stopped taking milk of magnesia couple of months ago. She endorses nausea but denies vomiting. Patient denies any recent fevers, urinary symptoms, or acute back pain. She endorses a history of cervical stenosis, for which she takes narcotic pain medication. Patient also endorses a history of a colectomy, small-bowel obstruction, and recent urinary tract infection. Labs Ordered: CBC, CMP, UA, lipase Imaging Ordered: CT abdomen pelvis with contrast Medications Ordered: 1 L normal saline IV bolus Results: Patient's CBC indicates no acute abnormalities. Her chemistry indicates a sodium of 134, creatinine of 0.61. Patient's urinalysis indicates 2+ ketones and trace leukocytes. 0330- Care signed out to Dr. Lucio pending CT scan results. <Sarah Stringer APRN - Last Filed: 06/04/25 03:36> Differential Diagnosis Differential diagnosis: Likely abdominal pain, constipation, diverticulitis, gastroenteritis and small bowel obstruction <Sarah Stringer APRN - Last Filed: 06/04/25 03:36> Lab Data Attestation: I reviewed the patient's lab results. <Sarah Stringer APRN - Last Filed: 06/04/25 03:36> Result diagrams: 06/04/25 00:19 06/04/25 00:19 <Sarah DeshpandeBernardo Stringer, LEAD NEURODIAGNOSTIC TECHNOLOGIST - Last Filed: 06/04/25 03:36> Labs: Lab Results 06/04/25 06/04/25 Range/Units 00:19 01:24 WBC 9.0 (4.5-10.0) K/mm3 RBC 4.73 (4.2-5.4) M/mm3 Hgb 14.4 (12.0-15.0) g/dL Hct 43.5 (37.0-47.0) % MCV 92.0 (80-100) fl MCH 30.4 (26-34) pg MCHC 33.1 (32-36) g/dl RDW 13.2 (11.5-14.5) % Plt Count 326 (150-375) k/mm3 MPV 9.9 (7.4-10.4) fl Immature Gran % (Auto) 1.2 H (0-0.5) % Neut % (Auto) 66.9 (45.5-73.1) % Lymph % (Auto) 24.3 (18.3-44.2) % [place] % (Auto) 7.0 (2.6-8.5) % Eos % (Auto) 0.3 (0-4.4) % Baso % (Auto) 0.3 (0.2-1.2) % Lymph # (Auto) 2.19 (0.9-3.2) K/mm3 [place] # (Auto) 0.6 (0.1-0.6) K/mm3 Eos # (Auto) 0.0 (0-0.3) K/mm3 Baso # (Auto) 0.0 (0.0-0.1) K/mm3 Abs Immat Gran (auto) 0.11 H (0.00-0.031) K/mm3 Absolute Neuts (auto) 6.0 (1.3-6.7) K/mm3 Absolute Nucleated RBC 0.000 (0.0-0.012) K/mm3 Nucleated RBC % 0.0 (0.0-0.2) % Sodium 134 L (137-145) mmol/L Potassium 3.6 (3.4-5.0) mmol/L Chloride 104 (98-107) mmol/L Carbon Dioxide 23 (22-30) mmol/L Anion Gap 7 (4-12) mmol/L BUN 9 (7-17) mg/dL Creatinine 0.61 L (0.7-1.0) mg/dL Estim Creat Clear Calc 55 ml/min Estimated GFR > 60 (59 - ) Glucose 98 (65-110) mg/dL Calcium 9.1 (8.4-10.2) mg/dL Total Bilirubin 0.6 (0.2-1.3) mg/dL AST 33 (14-36) U/L ALT 25 (6-35) U/L Alkaline Phosphatase 71 (38-126) U/L Total Protein 7.1 (6.3-8.2) g/dL Albumin 3.8 (3.5-5.1) g/dL Lipase 91 (23-300) U/L Urine Color Yellow (Yellow) Urine Appearance Clear (Clear) Urine pH 5.5 (5.0-9.0) Ur Specific [place] 1.041 H (1.001-1.035) Urine Protein Negative (Negative) mg/dL Urine Glucose (UA) Negative (Negative) mg/dL Urine Ketones 2+ H (Negative) mg/dL Ur Blood (Man) Trace (Negative) Urine Nitrate Negative (Negative) Urine Bilirubin Negative (Negative) Urine Urobilinogen 0.2 (<2.0) mg/dL Leukocyte Esterase Rfl Trace H (Negative) EARLENE/UL Urine RBC 0-2 (0-2) /hpf Urine WBC 0-5 (0-3) /hpf Ur Squamous Epith Cells Moderate (Few) /hpf Urine Bacteria None seen /hpf Urine Casts 0-2 <Sarah Stringer, LEAD NEURODIAGNOSTIC TECHNOLOGIST - Last Filed: 06/04/25 03:36> Lab Results 06/04/25 06/04/25 Range/Units 00:19 01:24 WBC 9.0 (4.5-10.0) K/mm3 RBC 4.73 (4.2-5.4) M/mm3 Hgb 14.4 (12.0-15.0) g/dL Hct 43.5 (37.0-47.0) % MCV 92.0 (80-100) fl MCH 30.4 (26-34) pg MCHC 33.1 (32-36) g/dl RDW 13.2 (11.5-14.5) % Plt Count 326 (150-375) k/mm3 MPV 9.9 (7.4-10.4) fl Immature Gran % (Auto) 1.2 H (0-0.5) % Neut % (Auto) 66.9 (45.5-73.1) % Lymph % (Auto) 24.3 (18.3-44.2) % [place] % (Auto) 7.0 (2.6-8.5) % Eos % (Auto) 0.3 (0-4.4) % Baso % (Auto) 0.3 (0.2-1.2) % Lymph # (Auto) 2.19 (0.9-3.2) K/mm3 [place] # (Auto) 0.6 (0.1-0.6) K/mm3 Eos # (Auto) 0.0 (0-0.3) K/mm3 Baso # (Auto) 0.0 (0.0-0.1) K/mm3 Abs Immat Gran (auto) 0.11 H (0.00-0.031) K/mm3 Absolute Neuts (auto) 6.0 (1.3-6.7) K/mm3 Absolute Nucleated RBC 0.000 (0.0-0.012) K/mm3 Nucleated RBC % 0.0 (0.0-0.2) % Sodium 134 L (137-145) mmol/L Potassium 3.6 (3.4-5.0) mmol/L Chloride 104 (98-107) mmol/L Carbon Dioxide 23 (22-30) mmol/L Anion Gap 7 (4-12) mmol/L BUN 9 (7-17) mg/dL Creatinine 0.61 L (0.7-1.0) mg/dL Estim Creat Clear Calc 55 ml/min Estimated GFR > 60 (59 - ) Glucose 98 (65-110) mg/dL Calcium 9.1 (8.4-10.2) mg/dL Total Bilirubin 0.6 (0.2-1.3) mg/dL AST 33 (14-36) U/L ALT 25 (6-35) U/L Alkaline Phosphatase 71 (38-126) U/L Total Protein 7.1 (6.3-8.2) g/dL Albumin 3.8 (3.5-5.1) g/dL Lipase 91 (23-300) U/L Urine Color Yellow (Yellow) Urine Appearance Clear (Clear) Urine pH 5.5 (5.0-9.0) Ur Specific [place] 1.041 H (1.001-1.035) Urine Protein Negative (Negative) mg/dL Urine Glucose (UA) Negative (Negative) mg/dL Urine Ketones 2+ H (Negative) mg/dL Ur Blood (Man) Trace (Negative) Urine Nitrate Negative (Negative) Urine Bilirubin Negative (Negative) Urine Urobilinogen 0.2 (<2.0) mg/dL Leukocyte Esterase Rfl Trace H (Negative) EARLENE/UL Urine RBC 0-2 (0-2) /hpf Urine WBC 0-5 (0-3) /hpf Ur Squamous Epith Cells Moderate (Few) /hpf Urine Bacteria None seen /hpf Urine Casts 0-2 <Owen Lucio MD - Last Filed: 06/04/25 07:11> Discharge Plan Discharge Clinical Impression: Constipation <Sarah Stringer APRN - Last Filed: 06/04/25 03:36> Patient Disposition: Home <Sarah Stringer APRN - Last Filed: 06/04/25 03:36> Condition: Stable <Sarah Stringer APRN - Last Filed: 06/04/25 03:36> Instructions: Antibiotic Form, Constipation (DC) <Sarah Stringer APRN - Last Filed: 06/04/25 03:36> Additional Instructions: Your CT scan shows no evidence of any bowel obstruction. No free air or active infection. Laboratory studies are reassuring and normal. We have prescribed you some bowel regimen medications to take to continue to regulate your bowel movements. Follow-up with your primary care provider. Return with any emergencies or worsening pain. <Sarah Stringer APRN - Last Filed: 06/04/25 03:36> Patient Language: Kyrgyz <Sarah Stringer APRN - Last Filed: 06/04/25 03:36> Prescriptions: New polyethylene glycol 3350 [Miralax] 17 gram/dose powder 17 g PO BID Qty: 119 0RF magnesium citrate Solution 150 ml PO ONCE PRN (Reason: constipation) Qty: 296 0RF Rx Instructions: as a single dose No Action oxycodone 7.5 mg tablet, oral only 7.5 mg PO BID PRN prednisone 5 mg tablet 5 mg PO TID PRN losartan 100 mg tablet 100 mg PO DAILY Qty: 90 2RF magnesium hydroxide [Milk of Magnesia] 400 mg/5 mL suspension 15 ml PO BID PRN levothyroxine 50 mcg tablet See Rx Instructions .ROUTE .COMPLEX Qty: 90 3RF Dose Instruction: TAKE 1 TABLET BY MOUTH DAILY Rx Instructions: TAKE 1 TABLET BY MOUTH DAILY tretinoin 0.1 % cream See Rx Instructions .ROUTE .COMPLEX Qty: 20 0RF Dose Instruction: APPLY TOPICALLY TO FACE DAILY Rx Instructions: APPLY TOPICALLY TO FACE DAILY amitriptyline 10 mg tablet See Rx Instructions .ROUTE .COMPLEX Qty: 180 2RF Dose Instruction: TAKE 2 TABLETS BY MOUTH EVERY DAY AT BEDTIME Rx Instructions: TAKE 2 TABLETS BY MOUTH EVERY DAY AT BEDTIME ciprofloxacin HCl [Cipro] 500 mg tablet 500 mg PO BID Qty: 14 0RF metronidazole 500 mg tablet 500 mg PO Q8H 7 Days Qty: 21 0RF <Sarah Stringer APRN - Last Filed: 06/04/25 03:36> Follow-up/Referrals: Shailesh Sanders MD [Primary Care Provider, Internal Medicine] <Sarah Stringer APRN - Last Filed: 06/04/25 03:36> Time of Disposition: 03:53 <Sarah Stringer APRN - Last Filed: 06/04/25 03:36> 03:53 <Owen Lucio MD - Last Filed: 06/04/25 07:11>
[2025-06-04 00:31] LABS: Hematocrit 43.5 % (37.0-47.0); Hemoglobin 14.4 g/dL (12.0-15.0); Immature Granulocyte Percent A 1.2 % (0-0.5); Lymphocytes Absolute Auto 2.19 K/mm3 (0.9-3.2); Mean Corpuscular HGB Conc 33.1 g/dl (32-36); Mean Corpuscular Hemoglobin 30.4 pg (26-34); Mean Corpuscular Volume 92.0 fl (80-100); Nucleated Red Blood Cells Absolute Auto 0.000 K/mm3 (0.0-0.012); Nucleated Red Blood Cells Perc 0.0 % (0.0-0.2); Platelet Count Result 326 k/mm3 (150-375); Red Blood Count 4.73 M/mm3 (4.2-5.4); White Blood Count 9.0 K/mm3 (4.5-10.0)
--- OUTSIDE RECORDS SUMMARY | 2025-06-04 00:32 | XMS_ITS | Clinical Summary ---
Author Organization [facility] Address [address] [place] [address] Care Team Providers Care Button Maker And Installer Name Role Phone Shailesh Sanders MD Primary Care Provide r Allergies No known active allergies Medications diclofenac DR (VOLTAREN) 75 mg EC tablet Take 75 mg by mouth 2 (two) times a day as needed. 8 Active gabapentin (NEURONTIN) 100 mg capsule Take 100 mg by mouth 3 (three) times a day as needed. 8 Active levothyroxine (SYNTHROID, LEVOTHROID) 50 mcg tablet Take 50 mcg by mouth daily. 6 Active LORazepam (ATIVAN) 0.5 mg tablet Take 1 tablet by mouth 3 (three) times a day as needed. 0 8 Active losartan (COZAAR) 50 mg tablet Take 50 mg by mouth daily. 6 Active tretinoin (RETIN-A) 0.1 % cream Apply 1 application topically daily as needed. 8 Active cholecalciferol (cholecalciferol ) 1,000 unit tablet Take 1,000 Units by mouth daily. Active acetaminophen ER (TYLENOL) 650 mg 8 hr tablet Take 650 mg by mouth every 8 (eight) hours as needed for pain. Active magnesium hydroxide (CONCENTRATED MILK OF MAGNESIA) suspension 2,400 mg/10 mL Take 10 mL by mouth daily as needed. Active glycerin suppository Insert 2 g into the rectum daily as needed for constipation. Active tiZANidine (ZANAFLEX) 2 mg tabletIndication s:Muscle Spasm Take 1 tablet (2 mg total) by mouth every 6 (six) hours as needed for muscle spasms. 30 tablet 8 Active Additional Information Patient not taking.Reported on 07/22/2020 oxyCODONE-acetam inophen (PERCOCET) 5-325 mg per tabletIndication s:Pain Take 1 tablet by mouth every 4 (four) hours as needed for pain. 60 tablet 8 Active Additional Information Patient not taking.Reported on 07/22/2020 HYDROcodone-acet aminophen (NORCO) 10-325 mg per tabletIndication s:Pain Take 1 tablet by mouth every 6 (six) hours as needed for pain Active multivitamin capsule Take 1 capsule by mouth daily Active Active Problems Problem Noted Date Diagnosed Date Neck pain 07/22/2020 Assessment & Plan (07/22/2020 3:37 PM [facility]): Ms. Yates has severe axial neck pain without radiculopathy or myelopathy. I am her 3rd opinion. We discussed that symptoms of myelopathy and radiculopathy respond very well to surgical intervention. Neck pain does not respond well to this and I would not recommend surgical intervention on her neck. She has a negative rheumatoid factor but has nodules on the joints of her hands and may benefit from a formal evaluation by rheumatology. A systemic medication may help more her hand, neck and back symptoms. We will not set up a scheduled appointment, but I would be happy to see her back any point on as-needed basis. The patient will continue care under her surgeon, Dr. Chavez. S/P hemilaminotomy 04/14/2018 Drug-induced constipation 04/14/2018 Spinal stenosis, lumbar yoni on, with neurogenic claudication 03/30/2018 Overview (03/30/2018): Added automatically from request for surgery [id number] Hypertension Hypothyroidism Neuropathy Arthritis Surgical History Surgery Date Site/Laterality Comments JOINT REPLACEMENT Right hip HYSTERECTOMY BOWEL RESECTION SUBTOTAL COLECTOMY 08/14/1998 - 08/13/1999 IMPLANT FACIAL COSMETIC SURGERY 08/14/1999 - 08/13/2000 LAMINECTOMY lumbar decompression with Dr. Crane Medical History Medical History Date Comments Constipation Neuropathy History of transfusion Lumbar stenosis Hypertension Hypothyroidism Arthritis Family History Medical History Relation Name Comments COPD Father Cancer Mother COPD Sister Relation Name Status Comments Father Mother Sister Alive Social History Tobacco Use Types Packs/Day Years Used Date Smoking Tobacco: Never Smokeless Tobacco: Never Alcohol Use Standard Drinks/Week Comments No 0 (1 standard drink = 0.6 oz pur e alcohol) PHQ-2 Answer Date Recorded PHQ-2 Total Score (If total score is 3 or more points, staff should administer the PHQ-9) 6 07/22/2020 Comments No Sex and Gender Information Value Date Recorded Sex Assigned at Not on file Legal Sex Female 11:32 AM CDT Gender Identity Not on file Sexual Orientation Not on file Occupation Industry Job Start Date Job End Date Retired Not on file Not on file Not on file Obstetrics History Last Filed Vital Signs Vital Sign Reading Time Taken Comments Blood Pressure 136/67 04/18/2018 11:00 AM CDT Pulse 87 04/18/2018 11:00 AM CDT Temperature 36.8 C (98.3 F) 04/18/2018 11:00 AM CDT Respiratory Rate 18 04/18/2018 11:00 AM CDT Oxygen Saturation 100% 04/18/2018 11:00 AM CDT Inhaled Oxygen Concentration - - Weight 65.3 kg (144 lb) 07/22/2020 2:52 PM [facility] Height 156.2 cm (5' 1.5) 07/22/2020 2:52 PM [facility] Body Mass Index 26.77 07/22/2020 2:52 PM [facility] Plan of Treatment Not on file Insurance [employer] MED[employer]ARE RAILRO[employer] Advance Directives For more information, please contact: [phone] * Full Code (Latest Code Status on File) Date Activated Date Inactivated Comments 04/14/2018 12:17 AM 04/18/2018 2:09 PM Care Teams Button Maker And Installer Relationship Specialty Start Date End Date Shailesh Sanders MD [address] [place], [place] [id number] PCP - General 11/07/16
--- OUTSIDE RECORDS SUMMARY | 2025-06-04 00:32 | XMS_ITS | Data Portability ---
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 She is here for injection both her knees. She has advanced patellofemoral osteoarthritis both knees. She does get some relief from the injections. She wishes to continue with these. Physical exam: 82-year-old female very alert. She appears younger than her stated age. She walks well without assistance. She has mild effusions in both knees. Moderate crepitus with patellofemoral joint range of motion. No mediolateral joint line tenderness. Mild edema in both lower extremities. After ChloraPrep was used on skin 20 mg Kenalog and 3 cc of 0.5% ropivacaine was injected in both knees. Risk infection discussed. Impression: 82-year-old female who has advanced patellofemoral osteoarthritis in both knees. She continued good relief from injections. I will see her back in 3 months repeat injection. Not available 12/30/2022 14:20:57 03/24/2023 03/24/2023 HPI: Patient returns. It has been 3 months since her last cortisone injection both her knees. She has had COVID as well as a UTI infection since we saw her last. She was hospitalized and in a rehab facility for about 2 weeks. She is still recovering from that and feeling tired and weak. Shots do give her some benefit of relief in her knees. She wishes to continue with them. She did talk about surgical options on her knees and I advised her at this point that since she has not fully recovered from this last Medical bout that I would recommend that she continue to improve her conditioning and stamina before she considers any kind of surgical option on her knee. She understands. She wished to have injections today. Physical exam: 82-year-old female alert. She walks without assistance. She has mild effusions in both knees. She has mild tenderness over both medial joint lines palpation. Mild pain with patellofemoral grind bilaterally. Range of motion is from 5-130 degrees. After ChloraPrep was used on the skin 20 mg Kenalog and 3 cc of 0.5% ropivacaine was injected into both knees. Risk infection discussed. Impression: 82-year-old female who has advanced patellofemoral osteoarthritis in both knees. She also has some mild medial compartment osteoarthritis in both knees on the x-rays today. This point I will see her in 3 months repeat injection. Not available 03/24/2023 15:22:08 03/31/2023 03/31/2023 HPI: 82-year-old female came in today for evaluation of her left shoulder pain. She injured it Monday night 4 days ago when she was down on the ground and tried pulling herself up onto her bed. She did not have any pain while she was doing this however later that evening she started developing a lot of pain and soreness in left shoulder. It has continued since then. She has pain with motion or use. Most the pain is over the anterior aspect of the shoulder. There is no pain radiating to the neck or down the arm. Physical exam: 82-year-old female alert. There is no redness or warmth about shoulder. No effusion. She has active elevation to 140 external rotates to 70 internally rotates to T10. She has mild discomfort with range of motion. She has an intact subscap lift-off. She has good external rotation strength and poor effort with abduction strength testing relative to moderate pain. She has hgqv-hr-odaxtmme tenderness over the anterior supraspinatus tendon insertion as well as the bicipital groove. Biceps has normal contour. 2+ radial pulse. After ChloraPrep was used on skin 20 mg Kenalog and 3 cc of 0.5% ropivacaine was injected into the left subacromial space. Risk of infection discussed. Impression: 82-year-old female who has had a strain of the rotator cuff in the left shoulder. She may have a small tear of the rotator cuff tendon and this would be more of a chronic tear to relative to her age. However she has relatively decent strength. She is trying to get some quick relief of her symptoms. She asked if we could give her a cortisone injection which I think would be reasonable. She tolerated the injection well. After the injection she noted significant improvement of her symptoms very quickly. If she does not get satisfactory improvement from this she will call, next step would be is to get an MRI scan of her shoulder. Hopefully this will relieve her symptoms completely. 20 minutes was spent in treatment patient more than half of this in tczt-ma-[id number] conversation Not available 03/31/2023 15:52:44 06/14/2023 06/14/2023 HPI: Patient returns. It has been 3 months since her last cortisone injection to both of knees. She is getting some relief from the shots. About 6 weeks. She is thinking about possibly having 1 of her knees replaced next year. She has advanced patellofemoral osteoarthritis in both knees. She is on chronic pain medication. At this point she is taking Percocet 7.5 mg q.6 hours for neck and low back problems and has done this for years. They have recently increased it to the purpose that because the hydrocodone have not been available. Physical exam: 82-year-old female alert pleasant. She has a wigq-vw-zhextdtq effusion both knees. Moderate pain with patellofemoral grind in both knees. Mild medial and lateral joint line tenderness in both knees. She has mild chronic edema in both lower extremities. After ChloraPrep used on the skin 20 mg Kenalog and 3 cc of 0.5% ropivacaine was injected into both knees. Risk of infection discussed. Impression: 82-year-old female who has advanced patellofemoral osteoarthritis both knees. She is thinking about having 1 of her knees replaced next year. We will see her in 3 months for surgical consultation. She will be 83 at that time and this will be in the consideration when talking about surgery with her and I discussed this with her briefly as well. Certainly if she changes her mind we can continue with injections every 3 months. Not available 06/14/2023 15:52:30 10/04/2023 10/04/2023 HPI: Patient returns. She is here for cortisone injection into both her knees. Last shots were 3 months ago. She has advanced patellofemoral osteoarthritis in both knees right little bit worse than left. She has an appointment to see a specialist in [place] about doing just patellofemoral resurfacing in November. She is still thinking about having surgery on her knees. She wished to have injections today. Physical exam: 83-year-old female alert pleasant. She does appear younger than her stated age. She walks with a cane. She has mild effusions in both knees. Moderate patellofemoral grind bilaterally. Mild chronic edema in both lower extremities. Range of motion is from 7-130 degrees bilaterally. After Betadine and alcohol prep 20 mg Kenalog and 3 cc of 0.5% ropivacaine was injected into both knees. Impression: 83-year-old female who has advanced patellofemoral osteoarthritis in both knees. Did have long discussion with her concerning surgery if it is done by us. This would be total knee arthroplasty. Talked about the fact she may have a difficult time with her recovery due to her chronic pain issues with her neck and her low back. She is on chronic narcotics which will also make it a little bit difficult control her pain afterwards as well. She is 83 and overall relatively healthy but still her age is a bit of a concern as well. She is going to have evaluation done by the specialist in [place]. If she wishes to have additional injections or wishes to talk about surgery without she will call otherwise we will see her back as needed. 20 minutes was spent in treatment patient more half of this in [id number] conversation juma Not available 10/04/2023 16:04:51 Plan of Treatment Reminders Order Date Submit Date Provider Last Modified By Organization Details Last Modified Time Details Appointments None recorded. Lab None recorded. Referral None recorded. Procedures injection/a spiration joint/bursa (PROC) - in office procedure, administere d by provider 2023 024 [email or web address] In-Office Order, Internal Use Only DO Not Attach Compendium DO Not Attach Compendium, Do Not Delete/merge, [id number] 15:20:19 injection/a spiration joint/bursa (PROC) - in office procedure, administere d by provider 2022 023 [email or web address] In-Office Order, Internal Use Only DO Not Attach Compendium DO Not Attach Compendium, Do Not Delete/merge, [id number] 3 14:29:00 injection/a spiration joint/bursa (PROC) - in office procedure, administere d by provider 2022 023 [email or web address] In-Office Order, Internal Use Only DO Not Attach Compendium DO Not Attach Compendium, Do Not Delete/merge, [facility] 3 15:03:12 injection/a spiration joint/bursa (PROC) - in office procedure, administere d by provider 2022 023 In-Office Order, Internal Use Only DO Not Attach Compendium DO Not Attach Compendium, Do Not Delete/merge, [facility] 3 13:58:41 injection/a spiration joint/bursa (PROC) - in office procedure, administere d by provider 2022 023 [email or web address] In-Office Order, Internal Use Only DO Not Attach Compendium DO Not Attach Compendium, Do Not Delete/merge, [facility] 3 13:58:56 Surgeries None recorded. Imaging XR, shoulder 2022 023 [facility], [address], [place], [address], 3 16:11:53 XR, knee 2022 023 [email or web address] [facility], [address], [place], [address], 3 15:39:33 Medication Orders Kenalog 10 mg/mL suspension for injection 2023 024 [email or web address] [id number], [address] [facility], [place], [place], [id number], 4 16:08:19 ropivacaine (PF) 5 mg/mL (0.5 %) injection solution 2023 024 [facility] #78301, [address], [place], [place], [id number], 4 16:08:19 Kenalog 10 mg/mL suspension for injection 2022 023 [facility] #63713, [address], [place], [place], [id number], 3 16:23:16 ropivacaine (PF) 5 mg/mL (0.5 %) injection solution 2022 023 [facility] #59357, [address], [place], [place], [id number], 3 16:23:16 Kenalog 10 mg/mL suspension for injection 2022 023 [facility] #25840, [address], [place], [place], [id number], 3 16:11:53 ropivacaine (PF) 5 mg/mL (0.5 %) injection solution 2022 023 [facility] #43092, [address], [place], [place], [id number], 3 16:11:53 Kenalog 10 mg/mL suspension for injection 2022 023 [facility] #01143, [address], [place], [place], [id number], 3 15:25:43 ropivacaine (PF) 5 mg/mL (0.5 %) injection solution 2022 023 [facility] #22602, [address], [place], [place], [id number], 3 15:25:43 Kenalog 10 mg/mL suspension for injection [address] [facility]88826, [address] [facility], [place], [place], [id number], 3 14:21:31 ropivacaine (PF) 5 mg/mL (0.5 %) injection solution [address] [facility]42062, [address], [place], [place], [id number], 3 14:21:31 Patient TargetsNo targets recorded. Patient InstructionsNo instructions recorded. Reason for Referral None Reported. Results Created Date Observation Date Name Description Value Unit Range Abnormal Flag Note LastModifiedBy Organization Detail LastModifiedTime 03/24/20 23 XR, knee No observ ation record ed. [email or web address] [address] [facility] [address] [facility] [address], [place], [address], 03/24/2023 15:20:05 03/31/20 23 XR, shoul sarahy No observ ation record ed. [address] [facility] [address] [facility] [address], [place], [address], 03/31/2023 15:49:51 Result Notes None recorded. Problems Name Problem SNOMED Code Status Onset Date Resolution Date Notes Provider Name and Address Organization Details Recorded Time Osteoarthr itis 738192993 Active Not Available [facility] 3 00:55:02 Bilateral osteoarthr itis of knees 3211535061448 07 Active 2022 ANTHONY Dawn [facility] [employer] [facility] 3 13:57:41 Pain of left shoulder joint 7094941538825 9109 Active 2022 ANTHONY Dawn, [facility] [employer] [facility] 3 15:01:47 Problem Notes None recorded. Procedures Surgical History Date Name Laterality Status Provider Name and Address Organization Details Recorded Time 03/14/20 14 Lumbar Spine Surgery completed Not Available [facility] 10/12/2022 00:49:03 Cholecystectomy completed Not Available [facility] 10/12/2022 00:49:03 total replacement of right hip joint completed Not Available [facility] 10/12/2022 00:49:03 Imaging Results None recorded. Procedure Notes None recorded. Medical Equipment None Reported. Allergies No known drug allergies Medications Name Sig Start Date Stop Date Status Note LastModified by Organization Details LastModified Time losartan 50 mg tablet TAKE 1 TABLET BY MOUTH DAILY active Not Available Not Available No t Available celecoxib 200 mg capsule 07/14 completed Not Available Not Available Not Available tretinoin 0.1 % topical cream APPLY TOPICALLY TO FACE DAILY active Not Available Not Available No t Available amoxicillin 500 mg capsule TAKE 4 CAPSULES BY MOUTH EVERY PELLET INSERTION 1 HOUR BEFORE active Not Available Not Available No t Available [place] Thyroid 60 mg tablet active Not Available Not Available No t Available methocarbam ol 500 mg tablet 07/06 completed Not Available Not Available Not Available tizanidine 2 mg tablet 04/13 completed Not Available Not Available Not Available hydrocodone 5 mg-acetamin ophen 325 mg tablet 01/12 completed Not Available Not Available Not Available bupivacaine HCl 0.5 % (5 mg/mL) injection solution In office injection administe red by the provider 07/06 completed Not Available Not Available Not Available prednisone 20 mg tablet 04/13 completed Not Available Not Available Not Available sulfasalazi ne 500 mg tablet,delaney yed release TAKE 2 TABLETS BY MOUTH TWICE DAILY 03/31 completed Not Available Not Available Not Available metronidazo le 250 mg tablet TAKE 1 TABLET BY MOUTH THREE TIMES DAILY 03/31 completed Not Available Not Available Not Available metronidazo le 500 mg tablet 03/31 completed Not Available Not Available Not Available azathioprin e 50 mg tablet 03/31 completed Not Available Not Available Not Available ciprofloxac in 500 mg tablet TAKE 1 TABLET BY MOUTH TWICE DAILY 03/31 completed Not Available Not Available Not Available hydrocodone 10 mg-acetamin ophen 325 mg tablet TAKE 1 TABLET BY MOUTH EVERY 6 HOURS active Not Available Not Available No t Available leflunomide 20 mg tablet 10/04 completed Not Available Not Available Not Available tramadol 50 mg tablet 06/03 completed Not Available Not Available Not Available lorazepam 0.5 mg tablet 06/03 completed Not Available Not Available Not Available methotrexat e sodium 2.5 mg tablet 07/14 completed Not Available Not Available Not Available Kenalog 10 mg/mL suspension for injection in office 2023 active ND: 0003- 0494- 20 Not Available Not Available Not Available amitriptyli ne 10 mg tablet TAKE 2 TABLETS BY MOUTH DAILY active Not Available Not Available No t Available levothyroxi ne 50 mcg tablet TAKE 1 TABLET BY MOUTH DAILY active Not Available Not Available No t Available progesteron e micronized 200 mg capsule TAKE 1 CAPSULE BY MOUTH EVERY EVENING AT BEDTIME 07/06 completed Not Available Not Available Not Available gabapentin 300 mg capsule TAKE 1 CAPSULE BY MOUTH THREE TIMES DAILY NEEDED active Not Available Not Available No t Available diclofenac sodium 75 mg tablet,delaney yed release 10/04 completed Not Available Not Available Not Available folic acid 1 mg tablet 07/14 completed Not Available Not Available Not Available diclofenac sodium 50 mg tablet,delaney yed release 03/31 completed Not Available Not Available Not Available gabapentin 100 mg capsule TAKE 1 CAPSULE BY MOUTH THREE TIMES DAILY NEEDED 03/31 completed Not Available Not Available Not Available lorazepam 1 mg tablet TAKE 1 BY MOUTH EVERY AT BEDTIME NEEDED FOR ANXIETY AFTER TRAUMA active Not Available Not Available No t Available hydroxychlo roquine 200 mg tablet 10/04 completed Not Available Not Available Not Available oxycodone-a cetaminophe n 7.5 mg-325 mg tablet TAKE 1 TABLET BY MOUTH EVERY 6 HOURS 10/04 completed Not Available Not Available Not Available zolpidem 10 mg tablet 06/03 completed Not Available Not Available Not Available estradiol 0.1 mg/24 hr weekly transdermal patch 07/14 completed Not Available Not Available Not Available spironolact one 50 mg tablet TAKE 1 TABLET BY MOUTH EVERY MORNING TO PREVENT FACIAL HAIR AND ACNE active Not Available Not Available No t Available diazepam 5 mg tablet 04/13 completed Not Available Not Available Not Available lidocaine (PF) 10 mg/mL (1 %) injection solution In office injection administe red by the provider 07/06 completed [facility]: [phone]- [phone] Not Available Not Available Not Available lidocaine (PF) 5 mg/mL (0.5 %) injection solution In office injection administe red by the provider 07/06 completed Not Available Not Available Not Available ropivacaine (PF) 5 mg/mL (0.5 %) injection solution in office 2023 active [facility] [phone] -[phone]- [phone] Not Available Not Available Not Available Embeda 20 mg-0.8 mg capsule, extend release, oral only 04/13 completed Not Available Not Available Not Available Narcan 4 mg/actuatio n nasal spray 04/13 completed Not Available Not Available Not Available Vitals Date Recorded Body height Body mass index (BMI) Body weight Provider Name and Address Organization Details Last Updated DateTime 10/04/2023 160.02 cm 27.8 kg/m2 14345 g Kirsten Ray [employer] [facility] [employer] [facility] 10/04/2023 15:24:15 Date Recorded Body height Provider Name an d Address Organization Details Last Updated DateTime 12/30/2022 157.48 cm Kirsten Ray [facility] [employer] [facility] [employer] [facility] 12/30/2022 13:57:23 Date Recorded Body height Provider Name an d Address Organization Details Last Updated DateTime 03/24/2023 157.48 cm Kirsten Ray [employer] [facility] 03/24/2023 13:57:18 Date Recorded Body height Provider Name an d Address Organization Details Last Updated DateTime 03/31/2023 157.48 cm Kirsten Ray [facility] [employer] [facility] [employer] [facility] 03/31/2023 15:01:34 Date Recorded Body height Provider Name an d Address Organization Details Last Updated DateTime 06/14/2023 157.48 cm Kirsten Ray [facility] [employer] [facility] 06/14/2023 14:27:22 Social History Question Answer Notes LastModified by Organizat ion Details LastModified Time Tobacco Smoking Status Never Smoker Not Available [employer] 10/12/2022 00:46:57 In The 14 Days Before Symptom Onset, Have You Had Close Contact With A Laboratory-confirm ed COVID-19 While That Case Was Ill? No [id number] Information not available 10/12/2022 In The 14 Days Before Symptom Onset, Have You Had Close Contact With A Person Who Is Under Investigation For COVID-19 While That Person Was Ill? No [id number] Information not available 10/12/2022 What Was The Date Of Your Most Recent Tobacco Screening? 10/12/2020 [id number] Information not available 10/12/2022 Have You Recently Traveled Abroad? No [id number] Information not available 10/12/2022 Sex: Unknown Functional Status Question Answer Note LastModified by Organizat ion Details LastModified Time Do you or have you ever used any other forms of tobacco or nicotine? No [id number] Information not available 10/12/2022 What is your level of alcohol consumption? None [id number] Information not available 10/12/2022 Mental Status None recorded. Family History Relationship Description Onset Age of this Age Resolved Age Notes LastModified by Organization Details LastModified Time Father No current problems or disability [id number] Not available 10/12/2022 00:49:05 Mother No current problems or disability [id number] Not available 10/12/2022 00:49:05 Notes:COPD - FATHER AND SIST ER Medical History Condition Response BLINDNESS N KIDNEY STONES N MRSA N CARPAL TUNNEL SYNDROME N LUNG DISEASE/DISORDER N HISTORY OF DRUG ABUSE N COPD N RADIATION / CHEMOTHERAPY N SPORTS INJURY N ANKLE PAIN N BLOOD DISEASES N SCHIZOPHRENIA N SHINGLES N SHOULDER PAIN N DEPRESSION (INCLUDING POST ) N BOWEL PROBLEMS N STROKE/TIA N KNEE PAIN N ULCERS N BENIGN PROSTATIC HYPERPLASIA N OBESITY N GERD/NAUSEA N ANEURYSM N URINARY/BLADDER/KIDNEY PROBLEMS N CORONARY ARTERY DISEASE (CAD) N ADDICTION CONCERNS N USE OF BLOOD THINNERS N SKIN PROBLEMS N EMPHYSEMA N MUSCLE,JOINT OR BONE PROBLEMS N DVT N STOMACH ULCERS N BLOOD CLOTS N USE OF NSAIDS N CONCUSSION OR SPINAL TRAUMA N NEUROPATHY N AIDS/HIV N FRACTURES N HYPERTENSION Y ELBOW PAIN N TOURETTE'S N Metal allergy N ANXIETY DISORDER N BLOOD TRANSFUSION N ANEMIA/BLOOD DISORDER N BIPOLAR DISORDER N BRONCHITIS N OSTEOARTHRITIS Y TUBERCULOSIS N FOOT PROBLEM N HEART VALVE DISORDERS N ALLERGIES/HAYFEVER N SOFT TISSUE INJURY N INFECTIOUS DISEASE N HEART ARRHYTHMIA N INSOMNIA N HIGH CHOLESTEROL / HYPERLIPIDEMIA N RHEUMATOID ARTHRITIS N EDEMA N CHRONIC PAIN SYNDROME N CAROTID BLOCKAGE N BACK / NECK PROBLEMS N HAVE YOU BEEN HOSPITALIZED OR SEEN IN [facility] ER IN THE PAST YEAR ? N BURSITIS N HERNIATED DISC N DIALYSIS N FIBROMYALGIA N OSTEOPOROSIS N ARTHRITIS N NO SIGNIFICANT PAST MEDICAL HISTORY N PERIPHERAL NEUROPATHY N DIABETES, TYPE N HEARTBURN / REFLUX N HEPATITIS / LIVER DISEASE N GOUT N ALZHEIMER'S DISEASE N SLEEP DISORDER N HERPES N HEADACHES/MIGRAINES N SEIZURES/EPILEPSY N VASCULAR DISEASE N Blood Disorder N HIP PAIN N DIZZINESS N HEAD TRAUMA OR INJURY N HEART DISEASE/HEART PROBLEMS N MULTIPLE SCLEROSIS N CARDIAC ARRHYTHMIA N CANCER: SPECIFY N ANESTHESIA COMPLICATIONS N ATRIAL FIBRILLATION N AUTOIMMUNE DISEASE N Gynecological HistoryNo gynecological history recorded. Obstetrics History GPAL:G 0 P 0 0 0 0 Past Encounters Encounter ID Performer Location Encounter Start Date Encounter Closed Date Diagnosis/Indication Diagnosis SNOMED-CT Code Diagnosis ICD10 Code Diagnosis IMO Codes Diagnosis Note [id number] Octavio Limon MD [facility] [address] [address] [facility] [address] [place], [place] [address] 10/12/2020 00:00:00 10/12/2020 15:11:49 [id number] Octavio Limon MD [facility] [address] [facility] [address] [address] [facility] [address] [place] [address] 01/13/2021 00:00:00 01/13/2021 15:15:47 [id number] Octavio Limon MD [facility] [address] [facility] [address] [place] [address] 04/14/2021 00:00:00 04/14/2021 15:38:42 [id number] Octavio Limon MD [facility] [address] [facility] [address] [place] [address] 2021 00:00:00 2021 14:26:29 [id number] Octavio Limon MD [facility] [address] [place] [address] 10/08/2021 00:00:00 10/08/2021 14:32:06 [id number] Octavio Limon MD [facility] [address] [place] [address] 01/05/2022 00:00:00 01/05/2022 16:23:29 [id number] Octavio Limon MD [facility] [address] [place] [address] 04/06/2022 00:00:00 04/06/2022 16:32:30 [id number] Octavio Limon MD [facility] [address] [place] [address] 07/06/2022 00:00:00 07/06/2022 14:42:08 [id number] Octavio Limon MD [facility] [address] [place] [address] 09/23/2022 00:00:00 09/23/2022 16:02:07 [id number] MD CAMILA [facility] [address] [place] [address] 12/30/2022 13:52:53 12/30/2022 14:57:42 Bilateral osteoarthritis of knees [id number] M17.0 [id number] Octavio Limon MD [facility] [address] [place] [address] 03/24/2023 13:48:03 03/24/2023 15:39:32 Bilateral osteoarthritis of knees [id number] M17.0 [id number] MD MIKE [facility] [address] [place] [address] 03/31/2023 14:55:26 03/31/2023 16:01:47 Pain of left shoulder joint [id number] M25.072 [id number] Octavio Limon MD [facility] [address] [place] [address] 06/14/2023 14:22:46 06/14/2023 16:00:09 Bilateral osteoarthritis of knees [id number] M17.0 [id number] MD MIKE [facility] [address] [place] [address] 10/04/2023 14:37:30 10/04/2023 16:09:04 Bilateral osteoarthritis of knees [id number] M17.0 Health Concerns Section Related Observation LastModified by Organization Detai ls LastModified Time None Recorded Concern Status LastModified by Organization Details LastModified Time None Recorded Advance Directives Directive None Recorded Payers Insurance Date Sequence Insurance Name Policy Number Policy Alva Covered Member ID Alva Member ID Guarantor Name 10/04/2023 1 [employer] - MEDICARE-RAILR OAD LONGTERM BOARD (MEDICARE) Emy Yates [id number] Emy Yates 10/12/2023 2 [facility] [employer] (MEDICARE SUPPLEMENT) mEy Yates [id number] Emy Yates OBGyn Episode No OBEpisode recorded.
--- OUTSIDE RECORDS SUMMARY | 2025-06-04 00:32 | XMS_ITS | Clinical Summary ---
Author Organization [facility] [employer] Address [facility] [place] [address] Care Team Providers Care Welt Stitcher Name Role Phone Shailesh Sanders MD Primary Care Provider [phone] Source Comments [facility] [employer],non-owned Affiliates and Associated Physician Practices is amultiple site organization consisting of ambulatory clinics and hospital sitesin [place], [place], [place] and [place]. This disclosure is being madepursuant to the Care Everywhere program and may not contain all information available regarding this patient. Last updated 18.[employer] Allergies No known active allergies Medications * Be aware that medications may not be up to date on this document. Alwaysverify current medications with the patient. diclofenac sodium EC (VOLTAREN) 75 MG tablet Take 75 mg by mouth 2 times daily 6 Active zolpidem (AMBIEN) 10 MG tablet Take 10 mg by mouth nightly as needed 6 Active LORazepam (ATIVAN) 0.5 MG tablet Take 0.5 mg by mouth at bedtime 6 Active losartan (COZAAR) 50 MG tablet Take 50 mg by mouth once daily 6 Active traMADol (ULTRAM) 50 MG tablet 6 Active levothyroxine (SYNTHROID) 50 MCG tablet Take 50 mcg by mouth daily before breakfast 6 Active HYDROcodone-masoud taminophen (NORCO) 5-325 MG tablet Take 1 tablet by mouth every 8 hours as needed for Pain Active vitamin D3 (CHOLECALCIFERO L) 1000 UNITS tablet Take 1,000 Units by mouth once daily Active [place]-3 Fatty Acids (FISH OIL) 1000 MG capsule Take 1,000 mg by mouth once daily Active Multiple Vitamins-Minera ls (WOMENS 50+ MULTI VITAMIN/MIN) TABS Take by mouth once daily Active Active Problems Problem Noted Date Diagnosed Date Hypertension 11/17/2023 11/17/2023 Hypothyroidism 11/17/2023 11/17/2023 Neuropathy 11/17/2023 11/17/2023 Osteoarthrosis 11/17/2023 11/17/2023 Pain in joint of left shoulder 03/31/2023 0 11/17/2023 Osteoarthritis of both knees 12/30/202212/2023 Neck pain 01/27/2020 11/17/2023 Overview (11/17/2023): Last Assessment & Plan: Ms. Loyola has severe axial neck pain without radiculopathy [...] continue care under her surgeon, Dr. Chavez. Drug-induced constipation 04/14/20182023 S/P hemilaminotomy 04/14/2018 11/17/2023 Spinal stenosis, lumbar yoni on, with neurogenic claudication 03/30/2018 11/17/2023 Overview (11/17/2023): Added automatically from request for surgery [id number] Chronic low back pain 07/27/2016 11/17/2023 Social History Tobacco Use Types Packs/Day Years Used Date Smoking Tobacco: Never Smokeless Tobacco: Never Alcohol Use Standard Drinks/Week Comments Not Currently 0 (1 standard drink = 0.6 oz pur e alcohol) Comments Unknown Sex and Gender Information Value Date Recorded Sex Assigned at Not on file Legal Sex Female 8:52 AM CDT Gender Identity Not on file Sexual Orientation Not on file Last Filed Vital Signs Vital Sign Reading Time Taken Comments Blood Pressure 127/60 02/27/2019 2:25 PM CDT Pulse 85 02/27/2019 2:25 PM CDT Temperature 36.7 C (98.1 F) 02/27/2019 2:25 PM CDT Respiratory Rate 16 02/27/2019 2:25 PM CDT Oxygen Saturation 97% 02/27/2019 2:25 PM CDT Inhaled Oxygen Concentration - - Weight 68 kg (150 lb) 11/17/2023 1:37 PM CDT Height 160 cm (5' 3) 11/17/2023 1:37 PM CDT Body Mass Index 26.57 11/17/2023 1:37 PM CDT Plan of Treatment Health Maintenance Due Date Last Done Comments BONE DENSITY TESTING 1940 MEDICARE AWV 12 MONTHS 1940 DTAP/TDAP/TD VACCINES (1 - Tdap) 1958 PNEUMOCOCCAL VACCINE 50+ (1 of 1 - PCV) 1989 ZOSTER VACCINE (1 of 2) 1989 Respiratory Syncytial Virus (RSV) Vaccine Pt: or over 60 yrs (1 - 1-dose 75+ series) 2014 DEPRESSION SCREENING 08/14/2024 COVID-19 VACCINE (1 - 2023-2 5 season) 2025 INFLUENZA VACCINE (#1) 2025 HEPATITIS B VACCINE Aged Out No longe r eligible based on patient's age to complete this topic HIB VACCINE Aged Out No longer eligi ble based on patient's age to complete this topic HPV VACCINE Aged Out No longer eligi ble based on patient's age to complete this topic MENINGOCOCCAL (Group B) VACC INE SHARED DECISION-MAKING Aged Out No longer eligibl e based on patient's age to complete this topic MENINGOCOCCAL GROUPS A/C/Y/W VACCINE Aged Out No longer eligible b ased on patient's age to complete this topic Insurance MEDICARE [facility] Member Subscriber Plan / Payer (Ef fective 2013-Present) Name:Tylor Loyola Relation to Subscriber:Self Name:Tylor Loyola Payer ID:Not on file Group ID:[id number] Type:Commercial Address[address] [id number] MEDICARE [facility] Care Teams Welt Stitcher Relationship Specialty Start Date End Date Shailesh Sanders MD PCP - General Internal Medicine 06/13/16
[2025-06-04 00:41] LABS: Alanine Aminotransferase 25 U/L (6-35); Albumin Level 3.8 g/dL (3.5-5.1); Alkaline Phosphatase 71 U/L (38-126); Anion Gap 7 mmol/L (4-12); Aspartate Amino Transferase 33 U/L (14-36); Bilirubin,Total 0.6 mg/dL (0.2-1.3); Blood Urea Nitrogen 9 mg/dL (7-17); Calcium 9.1 mg/dL (8.4-10.2); Carbon Dioxide 23 mmol/L (22-30); Chloride 104 mmol/L (98-107); Estimated CRCL calculation 55 ml/min; Estimated Glomerular Filt Rate > 60; Glucose 98 mg/dL (65-110); Lipase 91 U/L (23-300); Potassium 3.6 mmol/L (3.4-5.0); Sodium 134 mmol/L (137-145); Total Protein 7.1 g/dL (6.3-8.2)
[2025-06-04] MEDS: SODIUM CHLORIDE 0.9% IV 1,000 ML 999 ML IV CONT (01:29)
[2025-06-04 01:44] LABS: Add Urine Microscopic? YES; Appearance Urine Clear (Clear); Glucose Urine UA Negative (Negative); Leukocyte Esterase Ur Trace LEU/UL (Negative); Nitrate Urine Negative (Negative); Non Pathogenic Casts 0-2; Specific Grav Ur 1.041 (1.001-1.035)
[2025-06-04 03:46] VITALS: BP 164/95; PULSE 94; RESP 18; O2SAT 99
== END 2025-06-04 04:08 | disposition home or self-care (01) ==
PROVIDERS: Student in an Organized Health Care Education/Training Program; Emergency Provider Registered Nurse; PCP Emergency Medicine
DX: K59.00 Constipation, unspecified (principal); I10 Essential (primary) hypertension; E55.9 Vitamin D deficiency, unspecified; E78.5 Hyperlipidemia, unspecified; E03.9 Hypothyroidism, unspecified; M16.0 Bilateral primary osteoarthritis of hip; Z96.641 Presence of right artificial hip joint; Z86.16 Personal history of COVID-19; Z87.440 Personal history of urinary (tract) infections; Z87.01 Personal history of pneumonia (recurrent); Z90.710 Acquired absence of both cervix and uterus; Z90.49 Acquired absence of other specified parts of digestive tract
CPT/HCPCS: 36415; 74177; 80053; 81001; 83690; 85025; 96360; 99284; J7030; Q9967

== ENCOUNTER 2025-08-02 12:52 | Inpatient (IN) | payer MEDICARE, SELFPAY ==
[2025-08-02] VITALS (8 sets, daily range): BP systolic 103–150; BP diastolic 45–80; PULSE 84–109; RESP 17–29; TEMP 36.6–38.2; O2SAT 92–97; BMI 31.0
--- NOTE | ~2025-08-02 | XR_ITS ---
XR abdomen/kub 1V 08/06/2025 13:10 Indication: Follow-up constipation Procedure: KUB Comparison: 02/06/2023 Findings: Bowel gas pattern nonobstructive. There are calcified granulomas in the liver and spleen. There are coarse amorphous calcifications in the pelvis of uncertain origin, possibly calcified fibroids. Nonobstructive bowel gas pattern. Lung bases unremarkable. Impression: 1: Nonobstructive bowel gas pattern. Reviewed, dictated and finalized at location O. R MARKER Impression: 1: Nonobstructive bowel gas pattern.
--- NOTE | ~2025-08-02 | XR_ITS ---
MODIFIED ESOPHAGRAM HISTORY: Coughing with liquids TECHNIQUE: Modified barium esophagram was performed on 08/05/2025. I administered fluoroscopy and performed the exam with speech pathologist. Patient was seated for lateral fluoroscopic imaging for ingestion of thin liquids, pudding, solids and quantified amounts, followed by thin liquids in uncontrolled amounts. This was recorded on tape. A single fluoroscopic spot image was also recorded. The DAP for this procedure was 0.907 Gycm2. The amount of fluoroscopy time used during this procedure was 1.4 minutes. FINDINGS: Oral stage: Adequate function. Pharyngeal stage: Reduced tongue base retraction. There is vallecular residue, severe with mixed pudding and cracker consistencies and mild with thin liquids. No laryngeal penetration or aspiration. Cervical/esophageal stage: Adequate function. IMPRESSION: Patient tolerated regular consistency oral feedings in the upright position. Please correlate with speech pathologist findings and specific feeding recommendations. Reviewed, dictated and finalized at location A. OUT WORKER IMPRESSION: Patient tolerated regular consistency oral feedings in the upright position. Please correlate with speech pathologist findings and specific feedi ng recommendations.
--- NOTE | ~2025-08-02 | CT_ITS ---
EXAMINATION: CTA chest PE abdomen pel DATE: 08/02/2025 15:35 INDICATION: 85-year-old with leukocytosis, shortness of breath body ache, tachycardia. TECHNIQUE: Computed tomography angiography (CTA) of the chest was performed with 100 mL Omnipaque-350 intravenous contrast timed to evaluate the pulmonary arteries. Coronal maximum intensity projection 3D-reconstructions were created by the technologist. Computed tomography (CT) of the abdomen and pelvis was performed with intravenous contrast. Automated exposure control and iterative reconstruction technique were employed. The dose-length product was 776.94 mGy-cm. COMPARISON: CT abdomen pelvis dated 06/04/2025. Chest x-ray dated 07/08/2024. FINDINGS: Suboptimal visualization of the peripheral pulmonary arteries due to motion artifacts. No large central emboli. Extensive airspace opacity and consolidation are noted in the right upper lobe, middle lobe and lower lobe suggestive of pneumonia. Minimal airspace opacity of left lung base. No effusion. Below the diaphragm, no focal lesions of liver and spleen other than granulomatous lesions of the spleen. Gallbladder is distended in size and contains calcified gallstone. No edema of the gallbladder wall. Pancreas and kidneys do not show acute findings. No evidence of small bowel obstruction. Fecal impaction of the rectosigmoid. Severe degenerative disc disease at L3-4, L4-5 levels with anterolisthesis. IMPRESSION: 1. No evidence of central pulmonary emboli. Limited visualization of peripheral pulmonary arteries due to motion artifacts. 2. Extensive airspace opacities in the right lung and minimal airspace opacity of left lung base. Likely pneumonia. 3. Below diaphragm, and significantly distended gallbladder containing calcified gallstone. No edema gallbladder wall. Bile ducts are normal in size. 4. Fecal impaction of the rectosigmoid. 5. Severe degenerative disc disease at L3-4 and L4-5 levels with anterolisthesis. Reviewed, dictated and finalized at location T. DING MACHINE OPERATOR AUTOMATIC IMPRESSION: 1. No evidence of central pulmonary emboli. Limited visualization of peripheral pulmonary arteries due to motion artifacts. 2. Extensive airspace opacities in the right lung and minimal airspace opacity of left lung base. Likely pneumonia. 3. Below diaphragm, and significantly distended gallbladder containing calcifie d gallstone. No edema gallbladder wall. Bile ducts are normal in size. 4. Fecal impaction of the rectosigmoid. 5. Severe degenerative disc disease at L3-4 and L4-5 levels with anterolisthesi s.
[2025-08-02 13:21] LABS: Hematocrit 47.0 % (37.0-47.0); Hemoglobin 15.4 g/dL (12.0-15.0); Immature Granulocyte Percent A 0.7 % (0-0.5); Lymphocytes Absolute Auto 1.83 K/mm3 (0.9-3.2); Mean Corpuscular HGB Conc 32.8 g/dl (32-36); Mean Corpuscular Hemoglobin 30.7 pg (26-34); Mean Corpuscular Volume 93.6 fl (80-100); Nucleated Red Blood Cells Absolute Auto 0.000 K/mm3 (0.0-0.012); Nucleated Red Blood Cells Perc 0.0 % (0.0-0.2); Platelet Count Result 306 k/mm3 (150-375); Red Blood Count 5.02 M/mm3 (4.2-5.4); White Blood Count 24.6 K/mm3 (4.5-10.0)
[2025-08-02 13:47] LABS: Add Urine Microscopic? NO; Appearance Urine Clear (Clear); Glucose Urine UA Negative (Negative); Leukocyte Esterase Ur Negative LEU/UL (Negative); Nitrate Urine Negative (Negative); Specific Grav Ur 1.012 (1.001-1.035)
[2025-08-02 13:47] LABS: Alanine Aminotransferase 26 U/L (6-35); Albumin Level 4.0 g/dL (3.5-5.1); Alkaline Phosphatase 80 U/L (38-126); Anion Gap 6 mmol/L (4-12); Aspartate Amino Transferase 43 U/L (14-36); Bilirubin,Total 1.1 mg/dL (0.2-1.3); Blood Urea Nitrogen 13 mg/dL (7-17); Calcium 9.2 mg/dL (8.4-10.2); Carbon Dioxide 25 mmol/L (22-30); Chloride 103 mmol/L (98-107); Estimated CRCL calculation 42 ml/min; Estimated Glomerular Filt Rate > 60; Glucose 117 mg/dL (65-110); Lipase 56 U/L (23-300); Potassium 3.4 mmol/L (3.4-5.0); Sodium 134 mmol/L (137-145); Total Protein 7.6 g/dL (6.3-8.2)
[2025-08-02 14:24] LABS: Influenza A QL RT-PCR Negative (Negative); Influenza B QL RT-PCR Negative (Negative); RSV RNA, RT-PCR Negative (Negative); SARS-CoV-2 RNA PCR Negative (Negative)
--- NOTE | 2025-08-02 14:35 | ED.WEAKNESS ---
HPI - Weakness General Chief complaint: Nausea/Vomiting/Diarrhea <Kristie Reagan PA-C - Last Filed: 08/03/25 02:25> Stated complaint: SOB <STEFANO Sumner Last Filed: 08/03/25 02:25> Time Seen by Provider: 08/02/25 14:06 <Kristie Reagan PA-C - Last Filed: 08/03/25 02:25> Source: patient <STEFANO Sumner Last Filed: 08/03/25 02:25> Mode of arrival: EMS <STEFANO Sumner Last Filed: 08/03/25 02:25> Limitations: no limitations <STEFANO Sumner Last Filed: 08/03/25 02:25> History of Present Illness HPI Narrative: This is an 85-year-old female that presents to the emergency department for generalized weakness. Ongoing since last night. Reports feeling ill with body aches, shortness of breath, cough. Reports some nausea and vomiting. Denies abdominal pain, diarrhea, dysuria. <STEFANO Sumner Last Filed: 08/03/25 02:25> Related Data Home medications: Home Medications ?Medication ?Instructions ?Recorded ?Confirmed ?Last Taken ?Type losartan 100 mg tablet 100 mg PO DAILY 06/26/25 08/02/25 08/01/25 History hydrocodone 10 mg-acetaminophen 1 tablet PO Q6H PRN pain 07/21/25 08/02/25 Unknown History 325 mg tablet <STEFANO Sumner Last Filed: 08/03/25 02:25> Allergies/Adverse reactions: Allergies Allergy/AdvReac Type Severity Reaction Status Date / Time secukinumab (From Cosentyx) Allergy Severe Seizure Verified 08/02/25 22:13 nickel Allergy Rash Verified 08/02/25 22:13 <STEFANO Sumner Last Filed: 08/03/25 02:25> Review of Systems Review of Systems: All systems reviewed & are unremarkable except as noted in HPI and below <STEFANO Sumner Last Filed: 08/03/25 02:25> PMFSH Past Medical History Medical History: Medical History (Updated 08/04/25 @ 11:19 by Magaly Solomon APRN) HLD (hyperlipidemia) Rheumatoid arthritis Lumbar spondylosis Osteoarthritis of hips, bilateral Insomnia Diverticulitis Vitamin D deficiency Right lumbar radiculopathy Lumbar canal stenosis Essential (primary) hypertension Chronic bilateral low back pain without sciatica Anxiety disorder, unspecified Hypothyroidism (acquired) <Kristie Reagan PA-C - Last Filed: 08/03/25 02:25> Surgical History Surgical History: Surgical History History of hysterectomy History of arthroplasty of right hip S/P total colectomy <Kristie Reagan PA-C - Last Filed: 08/03/25 02:25> Family History Family History: Family History Father Family history of emphysema Sibling Family history of emphysema Grandparent Family history of cardiovascular disease Family history of lung cancer <Kristie Reagan PA-C - Last Filed: 08/03/25 02:25> Social History Social History: Social History Smoking status: Never smoker Second hand tobacco smoke exposure: No Alcohol intake: never Substance use: never Substance use type: does not use Lack of Transportation: No Lack of Food: Never True Current Housing: I Have Housing Concerned About Future Housing: No Difficulty Paying Gas/Electric Bills: No Difficulty Paying for Meds: No Currently Unemployed: No Education: Trade/Vocational Certificate Difficulty w/ Childcare or Family Care: No Living arrangements: with family Additional living arrangements comments: With son who has cerebral palsy Occupation/Education: retired 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 HEAD: Normocephalic, atraumatic. EYES: PERRLA and EOMI. ENT: Nares clear, no rhinorrhea or epistaxis. Mucous membranes moist. Oropharynx without tonsillar hypertrophy exudate or other lesions. NECK: Supple. No adenopathy or masses. CHEST: No respiratory distress. Lung sounds are coarse on the right. No wheezes or rhonchi HEART: Regular rate and rhythm. No murmur heard. Normal peripheral pulses. ABDOMEN: Soft, nontender, nondistended, normal active bowel sounds. EXTREMITIES: Normal range of motion. No edema. SKIN: Warm, dry, no rash. NEURO: No focal deficits. Alert and oriented x3. 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 I performed all aspects of the Medical Decision Making as documented. <Abdulaziz Montero MD - Last Filed: 08/07/25 17:06> Vital Signs Vital signs: Vital Signs Temperature 99.3 F 08/02/25 13:04 Pulse Rate 109 H 08/02/25 13:04 Respiratory Rate 29 H 08/02/25 13:04 Blood Pressure 109/60 08/02/25 13:04 Pulse Oximetry 92 08/02/25 13:04 Oxygen Delivery Nasal Cannula 08/02/25 13:04 Oxygen Flow Rate 2 08/02/25 13:04 Temperature 98.3 F 08/07/25 06:00 Pulse Rate 85 08/07/25 06:00 Respiratory Rate 16 08/07/25 06:00 Blood Pressure 139/65 08/07/25 06:00 Pulse Oximetry 94 08/07/25 06:00 Oxygen Delivery Room Air 08/07/25 08:00 Oxygen Flow Rate 1 08/04/25 14:08 Fraction of Inspired Oxygen 21 08/05/25 08:29 <Kristie Reagan PA-C - Last Filed: 08/03/25 02:25> Vital Signs Temperature 99.3 F 08/02/25 13:04 Pulse Rate 109 H 08/02/25 13:04 Respiratory Rate 29 H 08/02/25 13:04 Blood Pressure 109/60 08/02/25 13:04 Pulse Oximetry 92 08/02/25 13:04 Oxygen Delivery Nasal Cannula 08/02/25 13:04 Oxygen Flow Rate 2 08/02/25 13:04 Temperature 98.3 F 08/07/25 06:00 Pulse Rate 85 08/07/25 06:00 Respiratory Rate 16 08/07/25 06:00 Blood Pressure 139/65 08/07/25 06:00 Pulse Oximetry 94 08/07/25 06:00 Oxygen Delivery Room Air 08/07/25 08:00 Oxygen Flow Rate 1 08/04/25 14:08 Fraction of Inspired Oxygen 21 08/05/25 08:29 <Abdulaziz Montero MD - Last Filed: 08/07/25 17:06> [facility] Narrative Medical decision making narrative: Patient presents the emergency department for generalized weakness, body aches, cough, shortness of breath. Patient is afebrile and nontoxic appearing. Oxygen saturation upper 80s on room air. Placed on 2 L nasal cannula. CBC with leukocytosis to 24.6. Also shows hemoconcentration. Metabolic panel with normal kidney function. Urine without evidence of infection. Influenza and COVID screens are negative. CTA chest PE with abdomen pelvis obtained for further evaluation. No PE. Extensive airspace opacities in the right lung. Patient's gallbladder is enlarged with stones, but no overt inflammation. Patient does not have any right upper quadrant pain or tenderness. Fecal impaction in the rectosigmoid area. Blood cultures obtained, patient started on IV antibiotics. Patient will be admitted to the hospitalist service for further management <Kristie Reagan PA-C - Last Filed: 08/03/25 02:25> Differential Diagnosis Differential Diagnosis: Dehydration, electrolyte derangement, pneumonia, respiratory failure, COVID, influenza, UTI, PE <Kristie Reagan PA-C - Last Filed: 08/03/25 02:25> Lab Data [facility] Lab Attestation statement: I personally reviewed the patient's lab results. <Kristie Reagan PA-C - Last Filed: 08/03/25 02:25> Result diagrams: 08/07/25 06:22 08/07/25 06:22 <Kristie Reagan PA-C - Last Filed: 08/03/25 02:25> Labs: Lab Results 08/02/25 08/02/25 08/02/25 Range/Units 13:16 13:36 13:44 WBC 24.6 H (4.5-10.0) K/mm3 RBC 5.02 (4.2-5.4) M/mm3 Hgb 15.4 H (12.0-15.0) g/dL Hct 47.0 (37.0-47.0) % MCV 93.6 (80-100) fl MCH 30.7 (26-34) pg MCHC 32.8 (32-36) g/dl RDW 14.2 (11.5-14.5) % Plt Count 306 (150-375) k/mm3 MPV 9.2 (7.4-10.4) fl Immature Gran % (Auto) 0.7 H (0-0.5) % Neut % (Auto) 87.4 H (45.5-73.1) % Lymph % (Auto) 7.4 L (18.3-44.2) % [place] % (Auto) 3.7 (2.6-8.5) % Eos % (Auto) 0.6 (0-4.4) % Baso % (Auto) 0.2 (0.2-1.2) % Lymph # (Auto) 1.83 (0.9-3.2) K/mm3 [place] # (Auto) 0.9 H (0.1-0.6) K/mm3 Eos # (Auto) 0.1 (0-0.3) K/mm3 Baso # (Auto) 0.1 (0.0-0.1) K/mm3 Abs Immat Gran (auto) 0.16 H (0.00-0.031) K/mm3 Absolute Neuts (auto) 21.5 H (1.3-6.7) K/mm3 Absolute Nucleated RBC 0.000 (0.0-0.012) K/mm3 Nucleated RBC % 0.0 (0.0-0.2) % Sodium 134 L (137-145) mmol/L Potassium 3.4 (3.4-5.0) mmol/L Chloride 103 (98-107) mmol/L Carbon Dioxide 25 (22-30) mmol/L Anion Gap 6 (4-12) mmol/L BUN 13 (7-17) mg/dL Creatinine 0.83 (0.7-1.0) mg/dL Estim Creat Clear Calc 42 ml/min Estimated GFR > 60 (59 - ) Glucose 117 H (65-110) mg/dL Lactic Acid (0.7-2.0) mmol/L Calcium 9.2 (8.4-10.2) mg/dL Total Bilirubin 1.1 (0.2-1.3) mg/dL AST 43 H (14-36) U/L ALT 26 (6-35) U/L Alkaline Phosphatase 80 (38-126) U/L C-Reactive Protein NT-Pro-B Natriuret Pep (19.9-100) pg/mL Total Protein 7.6 (6.3-8.2) g/dL Albumin 4.0 (3.5-5.1) g/dL Lipase 56 (23-300) U/L Procalcitonin 8.3 ng/mL Urine Color Yellow (Yellow) Urine Appearance Clear (Clear) Urine pH 5.0 (5.0-9.0) Ur Specific [place] 1.012 (1.001-1.035) Urine Protein Negative (Negative) mg/dL Urine Glucose (UA) Negative (Negative) mg/dL Urine Ketones Negative (Negative) mg/dL Ur Blood (Man) Negative (Negative) Urine Nitrate Negative (Negative) Urine Bilirubin Negative (Negative) Urine Urobilinogen 0.2 (<2.0) mg/dL Leukocyte Esterase Rfl Negative (Negative) EARLENE/UL Influenza A (RT-PCR) Negative (Negative) Influenza B (RT-PCR) Negative (Negative) RSV (RT-PCR) Negative (Negative) SARS-CoV-2 RNA (RT-PCR) Negative (Negative) 08/02/25 08/02/25 08/02/25 Range/Units 14:34 14:34 18:10 WBC (4.5-10.0) K/mm3 RBC (4.2-5.4) M/mm3 Hgb (12.0-15.0) g/dL Hct (37.0-47.0) % MCV (80-100) fl MCH (26-34) pg MCHC (32-36) g/dl RDW (11.5-14.5) % Plt Count (150-375) k/mm3 MPV (7.4-10.4) fl Immature Gran % (Auto) (0-0.5) % Neut % (Auto) (45.5-73.1) % Lymph % (Auto) (18.3-44.2) % [place] % (Auto) (2.6-8.5) % Eos % (Auto) (0-4.4) % Baso % (Auto) (0.2-1.2) % Lymph # (Auto) (0.9-3.2) K/mm3 [place] # (Auto) (0.1-0.6) K/mm3 Eos # (Auto) (0-0.3) K/mm3 Baso # (Auto) (0.0-0.1) K/mm3 Abs Immat Gran (auto) (0.00-0.031) K/mm3 Absolute Neuts (auto) (1.3-6.7) K/mm3 Absolute Nucleated RBC (0.0-0.012) K/mm3 Nucleated RBC % (0.0-0.2) % Sodium (137-145) mmol/L Potassium (3.4-5.0) mmol/L Chloride (98-107) mmol/L Carbon Dioxide (22-30) mmol/L Anion Gap (4-12) mmol/L BUN (7-17) mg/dL Creatinine (0.7-1.0) mg/dL Estim Creat Clear Calc ml/min Estimated GFR (59 - ) Glucose (65-110) mg/dL Lactic Acid 2.7 H 2.4 H (0.7-2.0) mmol/L Calcium (8.4-10.2) mg/dL Total Bilirubin (0.2-1.3) mg/dL AST (14-36) U/L ALT (6-35) U/L Alkaline Phosphatase (38-126) U/L C-Reactive Protein Cancelled 2.7 H NT-Pro-B Natriuret Pep 632 H (19.9-100) pg/mL Total Protein (6.3-8.2) g/dL Albumin (3.5-5.1) g/dL Lipase (23-300) U/L Procalcitonin ng/mL Urine Color (Yellow) Urine Appearance (Clear) Urine pH (5.0-9.0) Ur Specific [place] (1.001-1.035) Urine Protein (Negative) mg/dL Urine Glucose (UA) (Negative) mg/dL Urine Ketones (Negative) mg/dL Ur Blood (Man) (Negative) Urine Nitrate (Negative) Urine Bilirubin (Negative) Urine Urobilinogen (<2.0) mg/dL Leukocyte Esterase Rfl (Negative) EARLENE/UL Influenza A (RT-PCR) (Negative) Influenza B (RT-PCR) (Negative) RSV (RT-PCR) (Negative) SARS-CoV-2 RNA (RT-PCR) (Negative) 08/03/25 Range/Units 05:58 WBC 22.1 H (4.5-10.0) K/mm3 RBC 3.87 L (4.2-5.4) M/mm3 Hgb 12.5 (12.0-15.0) g/dL Hct 37.1 (37.0-47.0) % MCV 95.9 (80-100) fl MCH 32.3 D (26-34) pg MCHC 33.7 (32-36) g/dl RDW 14.6 H (11.5-14.5) % Plt Count 254 (150-375) k/mm3 MPV 9.8 (7.4-10.4) fl Immature Gran % (Auto) 0.7 H (0-0.5) % Neut % (Auto) 85.8 H (45.5-73.1) % Lymph % (Auto) 8.6 L (18.3-44.2) % [place] % (Auto) 4.0 (2.6-8.5) % Eos % (Auto) 0.7 (0-4.4) % Baso % (Auto) 0.2 (0.2-1.2) % Lymph # (Auto) 1.90 (0.9-3.2) K/mm3 [place] # (Auto) 0.9 H (0.1-0.6) K/mm3 Eos # (Auto) 0.2 (0-0.3) K/mm3 Baso # (Auto) 0.1 (0.0-0.1) K/mm3 Abs Immat Gran (auto) 0.15 H (0.00-0.031) K/mm3 Absolute Neuts (auto) 18.9 H (1.3-6.7) K/mm3 Absolute Nucleated RBC 0.000 (0.0-0.012) K/mm3 Nucleated RBC % 0.0 (0.0-0.2) % Sodium 135 L (137-145) mmol/L Potassium 4.1 (3.4-5.0) mmol/L Chloride 110 H (98-107) mmol/L Carbon Dioxide 20 L (22-30) mmol/L Anion Gap 5 (4-12) mmol/L BUN 15 (7-17) mg/dL Creatinine 0.73 (0.7-1.0) mg/dL Estim Creat Clear Calc 48 ml/min Estimated GFR > 60 (59 - ) Glucose 88 (65-110) mg/dL Lactic Acid (0.7-2.0) mmol/L Calcium 8.1 L (8.4-10.2) mg/dL Total Bilirubin (0.2-1.3) mg/dL AST (14-36) U/L ALT (6-35) U/L Alkaline Phosphatase (38-126) U/L C-Reactive Protein NT-Pro-B Natriuret Pep (19.9-100) pg/mL Total Protein (6.3-8.2) g/dL Albumin (3.5-5.1) g/dL Lipase (23-300) U/L Procalcitonin ng/mL Urine Color (Yellow) Urine Appearance (Clear) Urine pH (5.0-9.0) Ur Specific [place] (1.001-1.035) Urine Protein (Negative) mg/dL Urine Glucose (UA) (Negative) mg/dL Urine Ketones (Negative) mg/dL Ur Blood (Man) (Negative) Urine Nitrate (Negative) Urine Bilirubin (Negative) Urine Urobilinogen (<2.0) mg/dL Leukocyte Esterase Rfl (Negative) EARLENE/UL Influenza A (RT-PCR) (Negative) Influenza B (RT-PCR) (Negative) RSV (RT-PCR) (Negative) SARS-CoV-2 RNA (RT-PCR) (Negative) <Kristie Reagan PA-C - Last Filed: 08/03/25 02:25> Lab Results 08/02/25 08/02/25 08/02/25 Range/Units 13:16 13:36 13:44 WBC 24.6 H (4.5-10.0) K/mm3 RBC 5.02 (4.2-5.4) M/mm3 Hgb 15.4 H (12.0-15.0) g/dL Hct 47.0 (37.0-47.0) % MCV 93.6 (80-100) fl MCH 30.7 (26-34) pg MCHC 32.8 (32-36) g/dl RDW 14.2 (11.5-14.5) % Plt Count 306 (150-375) k/mm3 MPV 9.2 (7.4-10.4) fl Immature Gran % (Auto) 0.7 H (0-0.5) % Neut % (Auto) 87.4 H (45.5-73.1) % Lymph % (Auto) 7.4 L (18.3-44.2) % [place] % (Auto) 3.7 (2.6-8.5) % Eos % (Auto) 0.6 (0-4.4) % Baso % (Auto) 0.2 (0.2-1.2) % Lymph # (Auto) 1.83 (0.9-3.2) K/mm3 [place] # (Auto) 0.9 H (0.1-0.6) K/mm3 Eos # (Auto) 0.1 (0-0.3) K/mm3 Baso # (Auto) 0.1 (0.0-0.1) K/mm3 Abs Immat Gran (auto) 0.16 H (0.00-0.031) K/mm3 Absolute Neuts (auto) 21.5 H (1.3-6.7) K/mm3 Absolute Nucleated RBC 0.000 (0.0-0.012) K/mm3 Nucleated RBC % 0.0 (0.0-0.2) % Sodium 134 L (137-145) mmol/L Potassium 3.4 (3.4-5.0) mmol/L Chloride 103 (98-107) mmol/L Carbon Dioxide 25 (22-30) mmol/L Anion Gap 6 (4-12) mmol/L BUN 13 (7-17) mg/dL Creatinine 0.83 (0.7-1.0) mg/dL Estim Creat Clear Calc 42 ml/min Estimated GFR > 60 (59 - ) Glucose 117 H (65-110) mg/dL Lactic Acid (0.7-2.0) mmol/L Calcium 9.2 (8.4-10.2) mg/dL Total Bilirubin 1.1 (0.2-1.3) mg/dL AST 43 H (14-36) U/L ALT 26 (6-35) U/L Alkaline Phosphatase 80 (38-126) U/L C-Reactive Protein NT-Pro-B Natriuret Pep (19.9-100) pg/mL Total Protein 7.6 (6.3-8.2) g/dL Albumin 4.0 (3.5-5.1) g/dL Lipase 56 (23-300) U/L Procalcitonin 8.3 ng/mL Urine Color Yellow (Yellow) Urine Appearance Clear (Clear) Urine pH 5.0 (5.0-9.0) Ur Specific [place] 1.012 (1.001-1.035) Urine Protein Negative (Negative) mg/dL Urine Glucose (UA) Negative (Negative) mg/dL Urine Ketones Negative (Negative) mg/dL Ur Blood (Man) Negative (Negative) Urine Nitrate Negative (Negative) Urine Bilirubin Negative (Negative) Urine Urobilinogen 0.2 (<2.0) mg/dL Leukocyte Esterase Rfl Negative (Negative) EARLENE/UL Influenza A (RT-PCR) Negative (Negative) Influenza B (RT-PCR) Negative (Negative) RSV (RT-PCR) Negative (Negative) SARS-CoV-2 RNA (RT-PCR) Negative (Negative) 08/02/25 08/02/25 08/02/25 Range/Units 14:34 14:34 18:10 WBC (4.5-10.0) K/mm3 RBC (4.2-5.4) M/mm3 Hgb (12.0-15.0) g/dL Hct (37.0-47.0) % MCV (80-100) fl MCH (26-34) pg MCHC (32-36) g/dl RDW (11.5-14.5) % Plt Count (150-375) k/mm3 MPV (7.4-10.4) fl Immature Gran % (Auto) (0-0.5) % Neut % (Auto) (45.5-73.1) % Lymph % (Auto) (18.3-44.2) % [place] % (Auto) (2.6-8.5) % Eos % (Auto) (0-4.4) % Baso % (Auto) (0.2-1.2) % Lymph # (Auto) (0.9-3.2) K/mm3 [place] # (Auto) (0.1-0.6) K/mm3 Eos # (Auto) (0-0.3) K/mm3 Baso # (Auto) (0.0-0.1) K/mm3 Abs Immat Gran (auto) (0.00-0.031) K/mm3 Absolute Neuts (auto) (1.3-6.7) K/mm3 Absolute Nucleated RBC (0.0-0.012) K/mm3 Nucleated RBC % (0.0-0.2) % Sodium (137-145) mmol/L Potassium (3.4-5.0) mmol/L Chloride (98-107) mmol/L Carbon Dioxide (22-30) mmol/L Anion Gap (4-12) mmol/L BUN (7-17) mg/dL Creatinine (0.7-1.0) mg/dL Estim Creat Clear Calc ml/min Estimated GFR (59 - ) Glucose (65-110) mg/dL Lactic Acid 2.7 H 2.4 H (0.7-2.0) mmol/L Calcium (8.4-10.2) mg/dL Total Bilirubin (0.2-1.3) mg/dL AST (14-36) U/L ALT (6-35) U/L Alkaline Phosphatase (38-126) U/L C-Reactive Protein Cancelled 2.7 H NT-Pro-B Natriuret Pep 632 H (19.9-100) pg/mL Total Protein (6.3-8.2) g/dL Albumin (3.5-5.1) g/dL Lipase (23-300) U/L Procalcitonin ng/mL Urine Color (Yellow) Urine Appearance (Clear) Urine pH (5.0-9.0) Ur Specific [place] (1.001-1.035) Urine Protein (Negative) mg/dL Urine Glucose (UA) (Negative) mg/dL Urine Ketones (Negative) mg/dL Ur Blood (Man) (Negative) Urine Nitrate (Negative) Urine Bilirubin (Negative) Urine Urobilinogen (<2.0) mg/dL Leukocyte Esterase Rfl (Negative) EARLENE/UL Influenza A (RT-PCR) (Negative) Influenza B (RT-PCR) (Negative) RSV (RT-PCR) (Negative) SARS-CoV-2 RNA (RT-PCR) (Negative) 08/03/25 Range/Units 05:58 WBC 22.1 H (4.5-10.0) K/mm3 RBC 3.87 L (4.2-5.4) M/mm3 Hgb 12.5 (12.0-15.0) g/dL Hct 37.1 (37.0-47.0) % MCV 95.9 (80-100) fl MCH 32.3 D (26-34) pg MCHC 33.7 (32-36) g/dl RDW 14.6 H (11.5-14.5) % Plt Count 254 (150-375) k/mm3 MPV 9.8 (7.4-10.4) fl Immature Gran % (Auto) 0.7 H (0-0.5) % Neut % (Auto) 85.8 H (45.5-73.1) % Lymph % (Auto) 8.6 L (18.3-44.2) % [place] % (Auto) 4.0 (2.6-8.5) % Eos % (Auto) 0.7 (0-4.4) % Baso % (Auto) 0.2 (0.2-1.2) % Lymph # (Auto) 1.90 (0.9-3.2) K/mm3 [place] # (Auto) 0.9 H (0.1-0.6) K/mm3 Eos # (Auto) 0.2 (0-0.3) K/mm3 Baso # (Auto) 0.1 (0.0-0.1) K/mm3 Abs Immat Gran (auto) 0.15 H (0.00-0.031) K/mm3 Absolute Neuts (auto) 18.9 H (1.3-6.7) K/mm3 Absolute Nucleated RBC 0.000 (0.0-0.012) K/mm3 Nucleated RBC % 0.0 (0.0-0.2) % Sodium 135 L (137-145) mmol/L Potassium 4.1 (3.4-5.0) mmol/L Chloride 110 H (98-107) mmol/L Carbon Dioxide 20 L (22-30) mmol/L Anion Gap 5 (4-12) mmol/L BUN 15 (7-17) mg/dL Creatinine 0.73 (0.7-1.0) mg/dL Estim Creat Clear Calc 48 ml/min Estimated GFR > 60 (59 - ) Glucose 88 (65-110) mg/dL Lactic Acid (0.7-2.0) mmol/L Calcium 8.1 L (8.4-10.2) mg/dL Total Bilirubin (0.2-1.3) mg/dL AST (14-36) U/L ALT (6-35) U/L Alkaline Phosphatase (38-126) U/L C-Reactive Protein NT-Pro-B Natriuret Pep (19.9-100) pg/mL Total Protein (6.3-8.2) g/dL Albumin (3.5-5.1) g/dL Lipase (23-300) U/L Procalcitonin ng/mL Urine Color (Yellow) Urine Appearance (Clear) Urine pH (5.0-9.0) Ur Specific [place] (1.001-1.035) Urine Protein (Negative) mg/dL Urine Glucose (UA) (Negative) mg/dL Urine Ketones (Negative) mg/dL Ur Blood (Man) (Negative) Urine Nitrate (Negative) Urine Bilirubin (Negative) Urine Urobilinogen (<2.0) mg/dL Leukocyte Esterase Rfl (Negative) EARLENE/UL Influenza A (RT-PCR) (Negative) Influenza B (RT-PCR) (Negative) RSV (RT-PCR) (Negative) SARS-CoV-2 RNA (RT-PCR) (Negative) <Abdulaziz Montero MD - Last Filed: 08/07/25 17:06> Imaging Data Radiologist's impression: ITS Impressions Chest/Abdomen/Pelvis CTA 08/02/25 15:45 IMPRESSION: 1. No evidence of central pulmonary emboli. Limited visualization of peripheral pulmonary arteries due to motion artifacts. 2. Extensive airspace opacities in the right lung and minimal airspace opacity of left lung base. Likely pneumonia. 3. Below diaphragm, and significantly distended gallbladder containing calcified gallstone. No edema gallbladder wall. Bile ducts are normal in size. 4. Fecal impaction of the rectosigmoid. 5. Severe degenerative disc disease at L3-4 and L4-5 levels with anterolisthesis. Modified Barium Swallow 08/05/25 14:25 IMPRESSION: Patient tolerated regular consistency oral feedings in the upright position. Please correlate with speech pathologist findings and specific feeding recommendations. Abdomen X-Ray 08/06/25 13:52 Impression: 1: Nonobstructive bowel gas pattern. <Kristie Reagan PA-C - Last Filed: 08/03/25 02:25> ITS Impressions Chest/Abdomen/Pelvis CTA 08/02/25 15:45 IMPRESSION: 1. No evidence of central pulmonary emboli. Limited visualization of peripheral pulmonary arteries due to motion artifacts. 2. Extensive airspace opacities in the right lung and minimal airspace opacity of left lung base. Likely pneumonia. 3. Below diaphragm, and significantly distended gallbladder containing calcified gallstone. No edema gallbladder wall. Bile ducts are normal in size. 4. Fecal impaction of the rectosigmoid. 5. Severe degenerative disc disease at L3-4 and L4-5 levels with anterolisthesis. Modified Barium Swallow 08/05/25 14:25 IMPRESSION: Patient tolerated regular consistency oral feedings in the upright position. Please correlate with speech pathologist findings and specific feeding recommendations. Abdomen X-Ray 08/06/25 13:52 Impression: 1: Nonobstructive bowel gas pattern. <Abdulaziz Montero MD - Last Filed: 08/07/25 17:06> Critical Care Time Critical Care Time Critical Care Time: Yes <Kristie Reagan PA-C - Last Filed: 08/03/25 02:25> Time Type: Intermittent <Kristie Reagan PA-C - Last Filed: 08/03/25 02:25> Initial evaluation, discuss w/ involved parties, attempting to gather old records: 10 minutes <Kristie Reagan PA-C - Last Filed: 08/03/25 02:25> Documenting medical record: 5 minutes <Kristie Reagan PA-C - Last Filed: 08/03/25 02:25> Review of results (EKG's, labs, imaging): 5 minutes <Kristie Reagan PA-C - Last Filed: 08/03/25 02:25> Serial repeat bedside evaluation: 10 minutes <Kristie Reagan PA-C - Last Filed: 08/03/25 02:25> Discussing case with multiple memebers of the care team and consultants: 5 minutes <Kristie Reagan PA-C - Last Filed: 08/03/25 02:25> Total Critical Care Time: 35 <Kristie Reagan PA-C - Last Filed: 08/03/25 02:25> 35 <Abdulaziz Montero MD - Last Filed: 08/07/25 17:06> Discharge Plan Discharge Clinical Impression: Acute hypoxemic respiratory failure Pneumonia Qualifiers: Pneumonia type: due to unspecified organism Laterality: right Lung location: unspecified part of lung Qualified Code(s): J18.9 - Pneumonia, unspecified organism <Kristie Reagan PA-C - Last Filed: 08/03/25 02:25> Patient Disposition: Still a Patient <Kristie Reagan PA-C - Last Filed: 08/03/25 02:25> Condition: Stable <Kristie Reagan PA-C - Last Filed: 08/03/25 02:25>
[2025-08-02] MEDS: FAMOTIDINE 20 MG/2 ML VIAL IV PUSH (14:38)
[2025-08-02] MEDS: SODIUM CHLORIDE 0.9% IV 500 ML 999 ML IV CONT ×2 (14:38→18:42)
[2025-08-02] MEDS: ONDANSETRON INJ 4 MG/2 ML VIAL IV PUSH (14:38)
[2025-08-02 15:07] LABS: CRP 2.7 mg/dL (<1.0)
[2025-08-02 15:12] LABS: NT Pro B Type Natriuretic Pept 632 pg/mL (19.9-100)
--- NOTE | 2025-08-02 15:48 | ECG_ITS ---
Test Date: 2025-08-02 16:28:25 Measurements Intervals [place] Rate: 105 P: 83 MD: 212 QRS: 12 QRSD: 85 T: 75 QT: 351 QTc: 464 Interpretive Statements SINUS TACHYCARDIA WITH FIRST DEGREE AV BLOCK CANNOT R/O SEPTAL INFARCT, AGE INDETERMINATE BASELINE ARTIFACT- I, II, III, AVR, AVL ABNORMAL ECG No previous ECG available for comparison Electronically Signed On 08-02-2025 17:27:22 EVENT MARKETING REPRESENTATIVE by Alon Das D.O.
[2025-08-02] MEDS: cefTRIAXone 1 GM in SODIUM CHLORIDE 0.9% IV 50 ML 100 ML IVPB (16:08)
[2025-08-02] MEDS: SODIUM CHLORIDE 0.9% IV 1,000 ML 999 ML IV CONT (16:08)
[2025-08-02] MEDS: HYDROcodone/acetaminophen (*CRX) 5-325 MG TABLET 1 TAB PO (18:07)
--- NOTE | 2025-08-02 18:12 | PC.NURSE ---
Notified HECTOR Reagan of patient temperature being 100.7 axilliary
[2025-08-02] MEDS: ACETAMINOPHEN 325 MG TABLET 650 MG PO (18:21)
--- NOTE | 2025-08-02 19:20 | PC.NURSE ---
Received report from ANUSHKA Yarbrough for cont. of care. Pt AOX4 lying on stretcher c/o 8/10 neck and back pain, refer to MAR for medication administration. Pt on cont. cardiac and pulse oximeter monitoring with family at bedside.
--- NOTE | 2025-08-02 19:40 | WPCEDHO ---
ED Hand Off Checklist All vitals saved:yes IV Site documented:yes All med administrations documented:yes Triage Note Triage Note Patient presents to ER with EMS 08/02/25 13:04 from home with n/v, incontinence, and body aches since middle of night. denies sick contacts. patient is alert and oriented x4. patient oxygen saturation on arrival is 88%, placed on 2L NC at this time. Allergies secukinumab (From Cosentyx) Allergy (Severe, Verified 07/21/25 12:45) Seizure rash, kidney disease nickel Allergy (Verified 07/21/25 12:45) Rash Family History (Last Reviewed 08/02/25 @ 19:25 by Tonya Adkins APRN) Father Family history of emphysema Sibling Family history of emphysema Grandparent Family history of cardiovascular disease Family history of lung cancer Administered/Completed Medications Discontinued Medications Acetaminophen (Acetaminophen 325 Mg Tablet) 650 mg PO ONCE STA Stop: 08/02/25 18:12 Last Admin: 08/02/25 18:21 Dose: 650 mg Documented By: HALINA Hydrocodone Bitart/Acetaminophen (Hydrocodone/Acetaminophen (*Crx) 5-325 Mg Tablet) 1 tab PO ONCE STA Stop: 08/02/25 17:58 Last Admin: 08/02/25 18:07 Dose: 1 tab Documented By: HALINA Famotidine (Famotidine 20 Mg/2 Ml Vial) 20 mg IV PUSH ONCE STA Stop: 08/02/25 14:32 Last Admin: 08/02/25 14:38 Dose: 20 mg Documented By: HALINA Sodium Chloride (Normal Saline Iv) 500 mls @ 999 mls/hr IV CONT .Q31M STA Stop: 08/02/25 15:01 Last Infusion: 08/02/25 16:04 Dose: Infused Documented By: Admin: 08/02/25 14:38 Dose: 999 mls/hr Documented By: HALINA Sodium Chloride (Normal Saline Iv) 1,000 mls @ 999 mls/hr IV CONT .Q1H1M STA Stop: 08/02/25 16:47 Last Infusion: 08/02/25 17:10 Dose: Infused Documented By: Admin: 08/02/25 16:08 Dose: 999 mls/hr Documented By: HALINA Ceftriaxone Sodium 1 gm/ (Sodium Chloride) 50 mls @ 100 mls/hr IVPB ONCE STA Stop: 12/20/25 16:16 Last Infusion: 08/02/25 17:05 Dose: Infused Documented By: Admin: 08/02/25 16:08 Dose: 100 mls/hr Documented By: HALINA Sodium Chloride (Normal Saline Iv) 500 mls @ 999 mls/hr IV CONT .Q31M STA Stop: 08/02/25 19:02 Last Infusion: 08/02/25 19:27 Dose: Infused Documented By: Admin: 08/02/25 18:42 Dose: 999 mls/hr Documented By: HALINA Ondansetron HCl (Ondansetron Inj 4 Mg/2 Ml Vial) 4 mg IV PUSH ONCE STA Stop: 08/02/25 14:30 Last Admin: 08/02/25 14:38 Dose: 4 mg Documented By: HALINA Notes 08/02/25 19:20 Nurse Note by Isatu Vyas Received report from ANUSHKA Yarbrough for cont. of care. Pt AOX4 lying on stretcher c/o 8/10 neck and back pain, refer to MAR for medication administration. Pt on cont. cardiac and pulse oximeter monitoring with family at bedside. Initialized on 08/02/25 19:20 - END OF NOTE 08/02/25 18:12 Nurse Note by Mary Ann Stockton Notified HECTOR Reagan of patient temperature being 100.7 axilliary Initialized on 08/02/25 18:12 - END OF NOTE Interventions/Assessments IV / Saline Lock, Insert Start: 08/02/25 12:59 Freq: STAT Status: Active Protocol: Document 08/02/25 13:13 HALINA (Rec: 08/02/25 13:14 HALINA [id number]) IV Assessment Peripheral Access Left Forearm IV Catheter Access Initiated IV Insertion Date 08/02/25 IV Insertion Time 13:14 Catheter Gauge 20 IV Site Assessment WNL IV Care and WNL Maintenance PA: Gastrointestinal Assessment Start: 08/02/25 12:58 Freq: Status: Active Protocol: Document 08/02/25 13:14 HALINA (Rec: 08/02/25 13:14 HALINA [id number]) GI Assessment Gastrointestinal Bloating,Nausea Symptoms Description Soft Nausea/Vomiting Assessment Nausea Frequency Intermittent Emesis Frequency Intermittent Last Vital Signs Temperature 98.5 F 08/02/25 19:32 Pulse Rate 94 08/02/25 19:32 Respiratory Rate 17 08/02/25 19:32 Pulse Oximetry 96 08/02/25 19:32 Blood Pressure 103/45 L 08/02/25 19:32 Blood Pressure Mean 64 08/02/25 19:32 Blood Pressure Position Sitting 08/02/25 19:32 Oxygen Delivery Nasal Cannula 08/02/25 13:04 Oxygen Flow Rate 2 08/02/25 13:04 Weight 78.6 kg 08/02/25 13:04 Last Result - Abnormals Only WBC 24.6 K/mm3 (4.5-10.0) H 08/02/25 13:16 Hgb 15.4 g/dL (12.0-15.0) H 08/02/25 13:16 Immature Gran % (Auto) 0.7 % (0-0.5) H 08/02/25 13:16 Neut % (Auto) 87.4 % (45.5-73.1) H 08/02/25 13:16 Lymph % (Auto) 7.4 % (18.3-44.2) L 08/02/25 13:16 [place] # (Auto) 0.9 K/mm3 (0.1-0.6) H 08/02/25 13:16 Abs Immat Gran (auto) 0.16 K/mm3 (0.00-0.031) H 08/02/25 13:16 Absolute Neuts (auto) 21.5 K/mm3 (1.3-6.7) H 08/02/25 13:16 Sodium 134 mmol/L (137-145) L 08/02/25 13:16 Glucose 117 mg/dL (65-110) H 08/02/25 13:16 Lactic Acid 2.4 mmol/L (0.7-2.0) H 08/02/25 18:10 AST 43 U/L (14-36) H 08/02/25 13:16 C-Reactive Protein 2.7 mg/dL (<1.0) H 08/02/25 14:34 NT-Pro-B Natriuret Pep 632 pg/mL (19.9-100) H 08/02/25 14:34 Most Recent Suicide Severity Rating Suicide Severity Rating NO RISK INDICATED 08/02/25 13:04
--- NOTE | 2025-08-02 20:16 | PC.NURSE ---
Pt refusing enema, per pt was told by GI MD she should not be having enemas.
[2025-08-02] MEDS: LACTATED RINGERS 1,000 ML 75 ML IV CONT (20:21)
[2025-08-02 20:48] LABS: Procalcitonin 8.3 ng/mL
--- NOTE | 2025-08-02 21:00 | ADMGEN ---
This patient, Emy Yates, was admitted to [facility] Surg Room 314-02. Patient/family oriented to hospital policies and general routines including ID bracelet, bed and alarms, visiting hours, pain management, procedures, bathroom and other care routines, personal items, smoking policy, room service/diet, and visiting hours. Information on how to activate the Rapid Response Team has been discussed. Patient/Family are encouraged to report perceived risks to care and to ask questions if they do not understand what they are told or what they should do.
[2025-08-02] MEDS: DOXYCYCLINE IV 100 MG in SODIUM CHLORIDE 0.9% IV 100 ML IVPB (21:44)
[2025-08-02] MEDS: guaiFENesin 12 HR 600 MG TABCR PO (21:47)
[2025-08-02] MEDS: DOCUSATE SODIUM 100 MG CAPSULE PO (21:47)
--- NOTE | 2025-08-02 23:49 | P.HP_ITS ---
H&P: HPI History of Present Illness Date/Time: 08/02/25 23:49 Chief Complaint: Nausea, Vomiting, Incontinence Narrative: 85 y/o F with PMH of hypertension, hyperlipidemia, hypothyroidism, and anxiety presents here with nausea, vomiting, body aches, and incontinence. The patient presents here from home via EMS on 08/02 for further evaluation of generalized weakness, nausea/vomiting, vomiting, body aches, urinary incontinence, shortness of breath, and cough. Cough is heavy and dry. She reports onset of symptoms around 1-2 days ago. She denies diarrhea, abdominal pain, or chest pain. Reports constipation. Able to go a small amount just prior to seeking evaluation in the ED, states it was difficult to go and she took Milk of Magnesia. She denies any recent sick contacts. The patient was found to be 88% on room air upon arrival to the emergency department. No previous supplemental O2 requirement. She denies history of smoking. Initial VS at presentation: 99.3? F, HR 109, R 29, 109/60, and 92% on 2L NC. ED workup showed: WBC 24.6, hemoglobin 15.4 (14.4 in May of 2025), no significant electrolyte derangements, creatinine 0.83 and GFR >60, initial lactic 2.7 (repeat 2.4), CRP 2.7, BNP elevated but within normal limits for age, UA unremarkable and viral PCR negative. CTA chest/abdomen/pelvis showed no evidence of PE, extensive airspace opacities in the right lung and minimal airspace opacity in left lung likely pneumonia, significantly distended gallbladder containing calcified gallstones with no edema of the gallbladder wall and bile ducts are normal in size, few small impaction of the rectosigmoid, severe degenerative disc disease. EKG showed sinus tachycardia with first- degree AV block. Review of Systems Review of Systems: All systems reviewed & are unremarkable except as noted in HPI and below PMFSH Past Medical History Medical History (Updated 08/03/25 @ 00:30 by Tonya Adkins, BENJA) HLD (hyperlipidemia) Rheumatoid arthritis Lumbar spondylosis Osteoarthritis of hips, bilateral Insomnia Diverticulitis Vitamin D deficiency Right lumbar radiculopathy Lumbar canal stenosis Essential (primary) hypertension Chronic bilateral low back pain without sciatica Anxiety disorder, unspecified Hypothyroidism (acquired) Surgical History Surgical History History of hysterectomy History of arthroplasty of right hip S/P total colectomy Family History Family History Father Family history of emphysema Sibling Family history of emphysema Grandparent Family history of cardiovascular disease Family history of lung cancer Social History Social History Smoking status: Never smoker Second hand tobacco smoke exposure: No Alcohol intake: never Substance use: never Substance use type: does not use Lack of Transportation: No Lack of Food: Never True Current Housing: I Have Housing Concerned About Future Housing: No Difficulty Paying Gas/Electric Bills: No Difficulty Paying for Meds: No Currently Unemployed: No Education: Trade/Vocational Certificate Difficulty w/ Childcare or Family Care: No Living arrangements: with family Additional living arrangements comments: With son who has cerebral palsy Occupation/Education: retired 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 Gender identity (if verbalized by the patient): Female Spiritual care concerns: No Agree to blood products: Yes Meds Home Medications and Allergies Home Medications ?Medication ?Instructions ?Recorded ?Confirmed ?Type tretinoin 0.1 % topical cream See Rx Instructions .Rou te 06/24/24 08/02/25 Rx .COMPLEX #20 grams docusate sodium 50 mg capsule 50 mg PO BID PRN constip ation #180 06/10/25 08/02/25 Rx caps melatonin 5 mg tablet 5 mg PO QHS #90 tabs 5 08/02/25 Rx levothyroxine 50 mcg tablet See Rx Instructions .Route 06/26/25 08/02/25 Rx .COMPLEX #90 tabs losartan 100 mg tablet 100 mg PO DAILY 06/26/25 History hydrocodone 10 mg-acetaminophen 1 tablet PO Q6H PRN pa in 07/21/25 08/02/25 History 325 mg tablet Allergies Allergy/AdvReac Type Severity Reaction Status Date / Time secukinumab (From Cosentyx) Allergy Severe Seizure Verified 08/02/25 22:13 nickel Allergy Rash Verified 08/02/25 22:13 Vital Signs Vital Signs - 24 hr 08/02/25 13:04 08/02/25 14:47 08/02/25 17:18 Temperature 99.3 F 98.8 F 98.7 F Pulse Rate 109 H 95 Respiratory Rate 29 H 20 Blood Pressure 109/60 126/80 Pulse Oximetry 92 95 Oxygen Delivery Nasal Cannula Oxygen Flow Rate 2 08/02/25 18:10 Temperature 100.7 F H Pulse Rate Respiratory Rate Blood Pressure Pulse Oximetry Oxygen Delivery Oxygen Flow Rate Exam Const: General: comfortable and no acute distress Other: , female, elderly, nontoxic appearance HENMT: Face/Nose/Sinus: Normal nares present Mouth: Yes moist mucous membranes Eyes: General: appearance normal, both eyes and all related structures Sclera: sclerae normal Pupils: Equal, round and reactive pupils present EOM: EOMs intact bilaterally Resp: Effort & Inspection: normal respiratory effort Auscultation: clear to auscultation bilaterally Other: Nasal cannula place, tolerating well Cardio: Rate: regular rate Rhythm: regular rhythm Other: S1-S2 present without murmur, rub, ectopy GI: Other: Abdomen soft, nondistended, nontender. Hyperactive bowel sounds in all quadrants. Skin: General skin exam: normal color and no rashes or lesions noted Wounds: no wounds Neuro: Speech: normal speech (Speech more consistent with speech impediment versus slurred) Motor exam (neuro): 5/5 motor strength present throughout Sensory Exam: normal sensation Extrem: General: normal to inspection Psych: Mental Status: mental status grossly normal Affect: normal affect Other: Fair insight and judgment Results Labs Labs: Short CBC 08/02/25 Range/Units 13:16 WBC 24.6 H (4.5-10.0) K/mm3 Hgb 15.4 H (12.0-15.0) g/dL Hct 47.0 (37.0-47.0) % Plt Count 306 (150-375) k/mm3 BMP 08/02/25 13:16 Sodium 134 L Potassium 3.4 Chloride 103 Carbon Dioxide 25 BUN 13 Creatinine 0.83 Glucose 117 H Calcium 9.2 Liver Function 08/02/25 Range/Units 13:16 Total Bilirubin 1.1 (0.2-1.3) mg/dL AST 43 H (14-36) U/L ALT 26 (6-35) U/L Alkaline Phosphatase 80 (38-126) U/L Albumin 4.0 (3.5-5.1) g/dL Urine 08/02/25 Range/Units 13:36 Urine Color Yellow (Yellow) Urine Appearance Clear (Clear) Urine pH 5.0 (5.0-9.0) Ur Specific [place] 1.012 (1.001-1.035) Urine Protein Negative (Negative) mg/dL Urine Glucose (UA) Negative (Negative) mg/dL Quality VTE Prophylaxis VTE prophylaxis: pharmacologic ordered Assessment and Plan Assessment and plan (1) Acute hypoxemic respiratory failure: Code(s): J96.01 - Acute respiratory failure with hypoxia Status: Acute Assessment and Plan: The patient presents here with viral respiratory symptoms including body aches, nausea, vomiting, shortness of breath, and cough. Imaging concerning for pneumonia. Viral PCR negative. No PE. No previous history of supplemental O2 requirement. Arrived 88% on room air on 08/02. No previous history of COPD and never smoker. Acute respiratory failure secondary to pneumonia. - started on broad-spectrum antibiotics for pneumonia - supportive care for respiratory illness, see below - met sepsis criteria, see below - continue supplemental oxygen to maintain O2 sat greater than 92%, wean as tolerated (2) Sepsis: Qualifiers: Acute respiratory failure type: with hypoxia Sepsis acute organ dysfunction status: with acute organ dysfunction Sepsis type: sepsis due to unspecified organism Severe sepsis acute organ dysfunction type: acute respiratory failure Severe sepsis shock status: without septic shock Qualified Code(s): A41.9 - Sepsis, unspecified organism; R65.20 - Severe sepsis without septic shock; J96.01 - Acute respiratory failure with hypoxia Code(s): A41.9 - Sepsis, unspecified organism Status: Acute Assessment and Plan: Patient met criteria for sepsis including HR greater than 90, RR greater than 20, and a significant leukocytosis at 24.6. +Hypoxia without shock. Initial lactic 2.7, repeat 2.4. Imaging concerning for pneumonia, see below. Extremities forearm/well perfused upon admission. No hemodynamic instability noted after supplemental O2 applied. - blood cultures obtained on 08/02, follow - broad-spectrum antibiotics for pneumonia - 2.3 L bolus for 30 mL/kg, given 2L -> 75 mL/hr x1L - monitor VS and WBC (3) Pneumonia: Qualifiers: Laterality: right Lung location: unspecified part of lung Pneumonia type: due to unspecified organism Qualified Code(s): J18.9 - Pneumonia, unspecified organism Code(s): J18.9 - Pneumonia, unspecified organism Status: Acute Assessment and Plan: Imaging * CTA chest/abdomen/pelvis: 1. No evidence of central pulmonary emboli. Limited visualization of peripheral pulmonary arteries due to motion artifacts. 2. Extensive airspace opacities in the right lung and minimal airspace opacity of left lung base. Likely pneumonia. 3. Below diaphragm, and significantly distended gallbladder containing calcified gallstone. No edema gallbladder wall. Bile ducts are normal in size. 4. Fecal impaction of the rectosigmoid. 5. Severe degenerative disc disease at L3-4 and L4-5 levels with anterolisthesis. - started on ceftriaxone and doxycycline (QTC 464) on 08/02 - supportive care: tyl prn, mucinex jamila, DuoNebs prn, tessalon perles prn - IV fluids - encourage IS (4) Fecal impaction: Code(s): K56.41 - Fecal impaction Status: Acute Assessment and Plan: Fecal impaction noted on CT. Reporting urinary incontinence without dysuria, frequency, or hesitancy. UA unremarkable. Complicated by a history of total colectomy. - milk of magnesia x1 p.r.n. - docusate bid - MiraLax daily - IV fluids (5) Essential (primary) hypertension: Code(s): I10 - Essential (primary) hypertension Status: Chronic Assessment and Plan: - chronic, currently 150/54, stable - hold home medications including: Losartan - monitor Plan Diet: Heart healthy GI Prophylaxis: N/a DVT Prophylaxis: Lovenox IV fluids: 2L -> 75 mL/hr x1L Lines/Tubes: pIV Code Status: full code Prior Studies I have reviewed the following patient records and this information was taken into consideration when formulating the assessment and plan.: previous labs, previous ER visits, previous hospitalizations and previous clinic visits Time Spent with Patient Time with patient: less than 45 minutes Hospitalist MIPS Advance Care Plan I have confirmed that the patient's Advanced Care Plan is present, code status is documented, or surrogate decision maker is listed in patient medical record.: Yes Medication Reconciliation I have utilized all available resources to obtain, update and review the patients current medications (includes all prescriptions, OTC, herbals, cannabis, and nutritional supplements).: Yes
[2025-08-03] VITALS (9 sets, daily range): BP systolic 110–150; BP diastolic 45–54; PULSE 74–94; RESP 16–20; TEMP 36.3–36.6; O2SAT 93–98
[2025-08-03] MEDS: HYDROcodone/acetaminophen (*CRX) 10-325 MG TABLET 1 TAB PO ×4 (00:44→21:31)
[2025-08-03] MEDS: MELATONIN 5 MG TABLET PO ×2 (00:45→21:21)
[2025-08-03 06:33] LABS: Hematocrit 37.1 % (37.0-47.0); Hemoglobin 12.5 g/dL (12.0-15.0); Immature Granulocyte Percent A 0.7 % (0-0.5); Lymphocytes Absolute Auto 1.90 K/mm3 (0.9-3.2); Mean Corpuscular HGB Conc 33.7 g/dl (32-36); Mean Corpuscular Hemoglobin 32.3 pg (26-34); Mean Corpuscular Volume 95.9 fl (80-100); Nucleated Red Blood Cells Absolute Auto 0.000 K/mm3 (0.0-0.012); Nucleated Red Blood Cells Perc 0.0 % (0.0-0.2); Platelet Count Result 254 k/mm3 (150-375); Red Blood Count 3.87 M/mm3 (4.2-5.4); White Blood Count 22.1 K/mm3 (4.5-10.0)
[2025-08-03] MEDS: LEVOTHYROXINE SODIUM 50 MCG TABLET PO (06:51)
[2025-08-03 06:57] LABS: Anion Gap 5 mmol/L (4-12); Blood Urea Nitrogen 15 mg/dL (7-17); Calcium 8.1 mg/dL (8.4-10.2); Carbon Dioxide 20 mmol/L (22-30); Chloride 110 mmol/L (98-107); Estimated CRCL calculation 48 ml/min; Estimated Glomerular Filt Rate > 60; Glucose 88 mg/dL (65-110); Potassium 4.1 mmol/L (3.4-5.0); Sodium 135 mmol/L (137-145)
[2025-08-03] MEDS: LOSARTAN POTASSIUM 100 MG TABLET PO (09:19)
[2025-08-03] MEDS: guaiFENesin 12 HR 600 MG TABCR PO ×2 (09:19→21:21)
[2025-08-03] MEDS: DOCUSATE SODIUM 100 MG CAPSULE PO (09:20)
[2025-08-03] MEDS: ENOXAPARIN 40 MG/0.4 ML SYRINGE SUB-Q (09:20)
[2025-08-03] MEDS: DOXYCYCLINE IV 100 MG in SODIUM CHLORIDE 0.9% IV 100 ML IVPB ×2 (09:39→21:19)
--- NOTE | 2025-08-03 11:06 | P.PNIM_ITS ---
Assessment and Plan Assessment and Plan (1) Sepsis: Qualifiers: Acute respiratory failure type: with hypoxia Sepsis acute organ dysfunction status: with acute organ dysfunction Sepsis type: sepsis due to unspecified organism Severe sepsis acute organ dysfunction type: acute respiratory failure Severe sepsis shock status: without septic shock Qualified Code(s): A41.9 - Sepsis, unspecified organism; R65.20 - Severe sepsis without septic shock; J96.01 - Acute respiratory failure with hypoxia Code(s): A41.9 - Sepsis, unspecified organism Status: Acute Assessment and Plan: Patient met criteria for sepsis including HR greater than 90, RR greater than 20, and a significant leukocytosis at 24.6. +Hypoxia without shock. Initial lactic 2.7, repeat 2.4. Imaging concerning for pneumonia, see below. Extremities forearm/well perfused upon admission. No hemodynamic instability noted after supplemental O2 applied. * empiric IV antibiotic therapy with ceftriaxone * Monitor lactic acid levels q6hr. * Two sets of blood cultures pending * urine cultures negative * C-reactive proteins elevated (2) Acute hypoxemic respiratory failure: Code(s): J96.01 - Acute respiratory failure with hypoxia Status: Acute Assessment and Plan: The patient presents here with viral respiratory symptoms including body aches, nausea, vomiting, shortness of breath, and cough. Imaging concerning for pneumonia. Viral PCR negative. No PE. No previous history of supplemental O2 requirement. Arrived 88% on room air on 08/02. No previous history of COPD and never smoker. Acute respiratory failure secondary to pneumonia. * started on broad-spectrum antibiotics for pneumonia * continue supplemental oxygen to maintain O2 sat greater than 92%, wean as tolerated (3) Pneumonia: Qualifiers: Laterality: right Lung location: unspecified part of lung Pneumonia type: due to unspecified organism Qualified Code(s): J18.9 - Pneumonia, unspecified organism Code(s): J18.9 - Pneumonia, unspecified organism Status: Acute Assessment and Plan: CT chest showing extensive airspace opacities in the right lung and minimal in the left lung, leukocytosis and need for supplemental oxygen. influenza/COVID/ RSV negative * started on ceftriaxone and doxycycline (QTC 464) on 08/02 * MRSA positive * added IV vancomycin * duo nebs * Mucinex * antipyretics * incentive spirometer while awake (4) Fecal impaction: Code(s): K56.41 - Fecal impaction Status: Acute Assessment and Plan: Fecal impaction noted on CT. Reporting urinary incontinence without dysuria, frequency, or hesitancy. UA unremarkable. Complicated by a history of total colectomy. * lactulose q.6 HR until BM * senna/Colace Hs * encourage oral hydration * encourage activity (5) Essential (primary) hypertension: Code(s): I10 - Essential (primary) hypertension Status: Chronic Assessment and Plan: * continue losartan with holding parameters systolic <110 * monitor BP per unit protocol Plan Code status: Full code per patient DVT prophylaxis: Lovenox PT/OT notes: NA Disposition: patient admitted to the medical unit with sepsis secondary to pneumonia and acute respiratory failure with hypoxia will continue with current treatment plan discharge when stable likely be home. Medical Record Review I have reviewed the following patient records and this information was taken into consideration when formulating the assessment and plan.: previous labs, previous ER visits and previous hospitalizations Time Spent With Patient Time with patient: 15 - 25 minutes Subjective Date/time seen: 08/03/25 11:06 Interval history: Patient is an 85-year-old female admitted for further evaluation and treatment of sepsis secondary to pneumonia with acute respiratory failure with hypoxia and fecal impaction. 08/03/2025: assumed care Patient still reporting mild shortness of breath and constipation. Patient reported she had fever and chills prior to arrival and worsening weakness. Currently comfortable but still on 2L supplemental oxygen. Review of Systems Review of Systems: All systems reviewed & are unremarkable except as noted in HPI and below Exam Narrative: speech slurred, baseline. Const: General: comfortable and no acute distress Other: , female, elderly, nontoxic appearance HENMT: Face/Nose/Sinus: Normal nares present Mouth: Yes moist mucous membranes Eyes: General: appearance normal, both eyes and all related structures Sclera: sclerae normal Pupils: Equal, round and reactive pupils present EOM: EOMs intact bilaterally Resp: Effort & Inspection: normal respiratory effort Auscultation: clear to auscultation bilaterally Other: Nasal cannula place, tolerating well Cardio: Rate: regular rate Rhythm: regular rhythm Other: S1-S2 present without murmur, rub, ectopy GI: Other: Abdomen soft, nondistended, nontender. Hyperactive bowel sounds in all quadrants. Skin: General skin exam: normal color and no rashes or lesions noted Wounds: no wounds Neuro: Cranial nerves: Yes Equal, round and reactive pupils present Speech: normal speech (Speech more consistent with speech impediment versus slurred) Motor exam (neuro): 5/5 motor strength present throughout Sensory Exam: normal sensation Extrem: General: normal to inspection Psych: Mental Status: mental status grossly normal Affect: normal affect Other: Fair insight and judgment Objective Data Vital Signs Vital Signs: Vital Signs - 24 hr 08/02/25 13:04 08/02/25 14:47 08/02/25 17:18 Temperature 99.3 F 98.8 F 98.7 F Pulse Rate 109 H 95 Respiratory Rate 29 H 20 Blood Pressure 109/60 126/80 Pulse Oximetry 92 95 Oxygen Delivery Nasal Cannula Oxygen Flow Rate 2 Fraction of Inspired Oxygen 08/02/25 18:10 08/02/25 19:09 08/02/25 19:32 Temperature 100.7 F H 98.7 F 98.5 F Pulse Rate 94 Respiratory Rate 17 Blood Pressure 103/45 L Pulse Oximetry 96 Oxygen Delivery Oxygen Flow Rate Fraction of Inspired Oxygen 08/02/25 20:00 08/02/25 21:24 08/03/25 00:00 Temperature 97.9 F 97.9 F Pulse Rate 84 84 Respiratory Rate 20 20 Blood Pressure 150/54 H 150/54 H Pulse Oximetry 96 97 96 Oxygen Delivery Room Air Oxygen Flow Rate Fraction of Inspired Oxygen 2 08/03/25 00:00 08/03/25 04:00 08/03/25 04:00 Temperature 97.4 F L Pulse Rate 85 82 83 Respiratory Rate 20 Blood Pressure 134/50 L Pulse Oximetry 98 Oxygen Delivery Oxygen Flow Rate Fraction of Inspired Oxygen 08/03/25 08:00 Temperature 97.6 F Pulse Rate 74 Respiratory Rate 16 Blood Pressure 110/50 L Pulse Oximetry 98 Oxygen Delivery Oxygen Flow Rate Fraction of Inspired Oxygen Intake/Output Intake/Output: Intake & Output 07/31/25 08/01/25 08/02/25 08/03/25 23:59 23:59 23:59 23:59 Intake Total 2150 320 Output Total 250 Balance 1900 320 Meds/Results Medications: Active Medications Generic Name Dose Route Start Last Admin Trade Name Freq PRN Reason Stop Dose Admin Acetaminophen 650 mg 08/02/25 19:15 Acetaminophen 325 Mg Tablet PO Q6H PRN Mild Pain (1-3) or Fever Hydrocodone Bitart/Acetaminophen 1 tab 08/02/25 23:46 08/03/25 06:52 Hydrocodone/Acetaminophen (*Crx) 10-325 Mg Tablet PO 1 tab Q6H PRN Administration Pain 7-10 Albuterol/Ipratropium 3 ml 08/03/25 14:00 Ipratropium 0.5 Mg/Albuterol Sulfate 2.5 Mg (Base) Ampul.Neb 3 Ml INHALATION Q6HRT CARA Benzonatate 100 mg 08/02/25 19:14 Benzonatate 100 Mg Capsule PO TID PRN Cough Enoxaparin Sodium 40 mg 08/03/25 09:00 08/03/25 09:20 Enoxaparin 40 Mg/0.4 Ml Syringe SUB-Q 40 mg DAILY CARA Administration Guaifenesin 600 mg 08/02/25 21:00 08/03/25 09:19 Guaifenesin 12 Hr 600 Mg Tabcr PO 600 mg Q12HR CARA Administration Ceftriaxone Sodium 1 gm/ 50 mls @ 100 mls/hr 08/03/25 16:00 Sodium Chloride IVPB Q24H CARA Doxycycline Hyclate 100 mg/ 100 mls @ 100 mls/hr 08/02/25 21:00 08/03/25 09:39 Sodium Chloride IVPB 08/07/25 09:59 100 mls/hr Q12H CARA Administration Lactulose 20 gm 08/03/25 12:00 Lactulose 20 Gm/30 Ml Udc PO Q6HR CARA Levothyroxine Sodium 50 mcg 08/03/25 06:30 08/03/25 06:51 Levothyroxine Sodium 50 Mcg Tablet PO 50 mcg DAILY@0630 [facility] Administration Losartan Potassium 100 mg 08/03/25 09:00 08/03/25 09:19 Losartan Potassium 100 Mg Tablet PO 100 mg DAILY [facility] Administration Melatonin 5 mg 08/02/25 23:50 08/03/25 00:45 Melatonin 5 Mg Tablet PO 5 mg QHS [facility] Administration Metoclopramide HCl 10 mg 08/02/25 19:15 Metoclopramide Hcl Inj 10 Mg/2 Ml Vial IV PUSH Q6HR PRN Nausea And Vomiting Polyethylene Glycol 17 gm 08/03/25 09:00 08/03/25 09:20 Polyethylene Glycol 3350 17 Gm Powd.Pack PO 17 gm QAM [facility] Administration Senna/Docusate Sodium 1 tab 08/03/25 21:00 Senna/Docusate Sodium Tablet PO HS [facility] Radiology Results: ITS Impressions Chest/Abdomen/Pelvis CTA 08/02/25 15:45 IMPRESSION: 1. No evidence of central pulmonary emboli. Limited visualization of peripheral pulmonary arteries due to motion artifacts. 2. Extensive airspace opacities in the right lung and minimal airspace opacity of left lung base. Likely pneumonia. 3. Below diaphragm, and significantly distended gallbladder containing calcified gallstone. No edema gallbladder wall. Bile ducts are normal in size. 4. Fecal impaction of the rectosigmoid. 5. Severe degenerative disc disease at L3-4 and L4-5 levels with anterolisthesis. Labs Labs: Laboratory Results - last 24 hr 08/02/25 08/02/25 08/02/25 13:16 13:36 13:44 WBC 24.6 H RBC 5.02 Hgb 15.4 H Hct 47.0 MCV 93.6 MCH 30.7 MCHC 32.8 RDW 14.2 Plt Count 306 MPV 9.2 Immature Gran % (Auto) 0.7 H Neut % (Auto) 87.4 H Lymph % (Auto) 7.4 L Kid[place] % (Auto) 3.7 Eos % (Auto) 0.6 Baso % (Auto) 0.2 Lymph # (Auto) 1.83 Kidder # (Auto) 0.9 H Eos # (Auto) 0.1 Baso # (Auto) 0.1 Abs Immat Gran (auto) 0.16 H Absolute Neuts (auto) 21.5 H Absolute Nucleated RBC 0.000 Nucleated RBC % 0.0 Sodium 134 L Potassium 3.4 Chloride 103 Carbon Dioxide 25 Anion Gap 6 BUN 13 Creatinine 0.83 Estim Creat Clear Calc 42 Estimated GFR > 60 Glucose 117 H Lactic Acid Calcium 9.2 Total Bilirubin 1.1 AST 43 H ALT 26 Alkaline Phosphatase 80 C-Reactive Protein NT-Pro-B Natriuret Pep Total Protein 7.6 Albumin 4.0 Lipase 56 Procalcitonin 8.3 Urine Color Yellow Urine Appearance Clear Urine pH 5.0 Ur Specific [place] 1.012 Urine Protein Negative Urine Glucose (UA) Negative Urine Ketones Negative Ur Blood (Man) Negative Urine Nitrate Negative Urine Bilirubin Negative Urine Urobilinogen 0.2 Leukocyte Esterase Rfl Negative Influenza A (RT-PCR) Negative Influenza B (RT-PCR) Negative RSV (RT-PCR) Negative SARS-CoV-2 RNA (RT-PCR) Negative 08/02/25 08/02/25 08/02/25 14:34 14:34 18:10 WBC RBC Hgb Hct MCV MCH MCHC RDW Plt Count MPV Immature Gran % (Auto) Neut % (Auto) Lymph % (Auto) [place] % (Auto) Eos % (Auto) Baso % (Auto) Lymph # (Auto) Kidder # (Auto) Eos # (Auto) Baso # (Auto) Abs Immat Gran (auto) Absolute Neuts (auto) Absolute Nucleated RBC Nucleated RBC % Sodium Potassium Chloride Carbon Dioxide Anion Gap BUN Creatinine Estim Creat Clear Calc Estimated GFR Glucose Lactic Acid 2.7 H 2.4 H Calcium Total Bilirubin AST ALT Alkaline Phosphatase C-Reactive Protein Cancelled 2.7 H NT-Pro-B Natriuret Pep 632 H Total Protein Albumin Lipase Procalcitonin Urine Color Urine Appearance Urine pH Ur Specific [place] Urine Protein Urine Glucose (UA) Urine Ketones Ur Blood (Man) Urine Nitrate Urine Bilirubin Urine Urobilinogen Leukocyte Esterase Rfl Influenza A (RT-PCR) Influenza B (RT-PCR) RSV (RT-PCR) SARS-CoV-2 RNA (RT-PCR) 08/03/25 05:58 WBC 22.1 H RBC 3.87 L Hgb 12.5 Hct 37.1 MCV 95.9 MCH 32.3 D MCHC 33.7 RDW 14.6 H Plt Count 254 MPV 9.8 Immature Gran % (Auto) 0.7 H Neut % (Auto) 85.8 H Lymph % (Auto) 8.6 L [place] % (Auto) 4.0 Eos % (Auto) 0.7 Baso % (Auto) 0.2 Lymph # (Auto) 1.90 [place]der # (Auto) 0.9 H Eos # (Auto) 0.2 Baso # (Auto) 0.1 Abs Immat Gran (auto) 0.15 H Absolute Neuts (auto) 18.9 H Absolute Nucleated RBC 0.000 Nucleated RBC % 0.0 Sodium 135 L Potassium 4.1 Chloride 110 H Carbon Dioxide 20 L Anion Gap 5 BUN 15 Creatinine 0.73 Estim Creat Clear Calc 48 Estimated GFR > 60 Glucose 88 Lactic Acid Calcium 8.1 L Total Bilirubin AST ALT Alkaline Phosphatase C-Reactive Protein NT-Pro-B Natriuret Pep Total Protein Albumin Lipase Procalcitonin Urine Color Urine Appearance Urine pH Ur Specific [place] Urine Protein Urine Glucose (UA) Urine Ketones Ur Blood (Man) Urine Nitrate Urine Bilirubin Urine Urobilinogen Leukocyte Esterase Rfl Influenza A (RT-PCR) Influenza B (RT-PCR) RSV (RT-PCR) SARS-CoV-2 RNA (RT-PCR) Attestation: I personally reviewed all lab results Imaging Attestation: I personally reviewed this imaging study Quality VTE Prophylaxis VTE prophylaxis: pharmacologic ordered -Patient's previous records reviewed on admission -ER notes reviewed in detail on admission -discussed all findings and current treatment plan with patient/Family/POA -Consultations reviewed for recommendations -Patient's disposition for safe discharge discussed with case resolution specialist -radiology imaging, EKG and test results I have personally reviewed and interpreted unless otherwise specified Dictation performed by [facility] direct speech recognition software, therefore emd teacher variants and typographical errors may occur. Hospitalist MIPS Advance Care Plan I have confirmed that the patient's Advanced Care Plan is present, code status is documented, or surrogate decision maker is listed in patient medical record.: Yes Medication Reconciliation I have utilized all available resources to obtain, update and review the patients current medications (includes all prescriptions, OTC, herbals, can nabis, and nutritional supplements).: Yes The patient is not eligible for med reconciliation; the patient is in a emergent medical situation where delaying treatment would jeopardize the patients health.: No
[2025-08-03] MEDS: LACTULOSE 20 GM/30 ML UDC PO ×2 (12:38→17:25)
[2025-08-03] MEDS: IPRATROPIUM 0.5 MG/ALBUTEROL SULFATE 2.5 MG (BASE) AMPUL.NEB 3 ML INHALATION ×2 (13:08→21:50)
[2025-08-03 14:26] LABS: MRSA (PCR) DETECTED (NOT DETECTE)
[2025-08-03] MEDS: cefTRIAXone 1 GM in SODIUM CHLORIDE 0.9% IV 50 ML 100 ML IVPB (16:00)
[2025-08-03] MEDS: VANCOMYCIN 2,000 MG/NS 500 ML 2,000 MG/500 ML BAG 250 MG IVPB (17:24)
[2025-08-03] MEDS: MUPIROCIN 2% OINT 22 GM TUBE 1 APPLIC EACH NARE (21:25)
[2025-08-04] VITALS (9 sets, daily range): BP systolic 129–155; BP diastolic 53–76; PULSE 63–107; RESP 18–20; TEMP 36.3–37.1; O2SAT 94–99
[2025-08-04] MEDS: HYDROcodone/acetaminophen (*CRX) 10-325 MG TABLET 1 TAB PO ×2 (06:23→20:57)
[2025-08-04] MEDS: LACTULOSE 20 GM/30 ML UDC PO (06:23)
[2025-08-04] MEDS: LEVOTHYROXINE SODIUM 50 MCG TABLET PO (06:24)
[2025-08-04 06:43] LABS: Hematocrit 37.0 % (37.0-47.0); Hemoglobin 11.4 g/dL (12.0-15.0); Mean Corpuscular HGB Conc 30.8 g/dl (32-36); Mean Corpuscular Hemoglobin 30.3 pg (26-34); Mean Corpuscular Volume 98.4 fl (80-100); Platelet Count Result 231 k/mm3 (150-375); Red Blood Count 3.76 M/mm3 (4.2-5.4); White Blood Count 14.0 K/mm3 (4.5-10.0)
[2025-08-04 07:03] LABS: Alanine Aminotransferase 14 U/L (6-35); Albumin Level 2.8 g/dL (3.5-5.1); Alkaline Phosphatase 69 U/L (38-126); Anion Gap 4 mmol/L (4-12); Aspartate Amino Transferase 24 U/L (14-36); Bilirubin,Total 0.5 mg/dL (0.2-1.3); Blood Urea Nitrogen 16 mg/dL (7-17); Calcium 8.2 mg/dL (8.4-10.2); Carbon Dioxide 21 mmol/L (22-30); Chloride 110 mmol/L (98-107); Estimated CRCL calculation 50 ml/min; Estimated Glomerular Filt Rate > 60; Glucose 85 mg/dL (65-110); Magnesium 1.9 mg/dL (1.6-2.3); Potassium 4.4 mmol/L (3.4-5.0); Sodium 135 mmol/L (137-145); Total Protein 5.6 g/dL (6.3-8.2)
[2025-08-04] MEDS: LOSARTAN POTASSIUM 100 MG TABLET PO (10:06)
[2025-08-04] MEDS: guaiFENesin 12 HR 600 MG TABCR PO ×2 (10:06→20:58)
[2025-08-04] MEDS: DOXYCYCLINE IV 100 MG in SODIUM CHLORIDE 0.9% IV 100 ML IVPB ×2 (10:07→22:15)
[2025-08-04] MEDS: ENOXAPARIN 40 MG/0.4 ML SYRINGE SUB-Q (10:07)
[2025-08-04] MEDS: MUPIROCIN 2% OINT 22 GM TUBE 1 APPLIC EACH NARE ×2 (10:07→23:35)
--- NOTE | 2025-08-04 10:53 | PCRCNOTE ---
Window of time for administration has passed. See next scheduled administration.
--- NOTE | 2025-08-04 11:18 | P.PNIM_ITS ---
Assessment and Plan Assessment and Plan (1) Sepsis: Qualifiers: Acute respiratory failure type: with hypoxia Sepsis acute organ dysfunction status: with acute organ dysfunction Sepsis type: sepsis due to unspecified organism Severe sepsis acute organ dysfunction type: acute respiratory failure Severe sepsis shock status: without septic shock Qualified Code(s): A41.9 - Sepsis, unspecified organism; R65.20 - Severe sepsis without septic shock; J96.01 - Acute respiratory failure with hypoxia Code(s): A41.9 - Sepsis, unspecified organism Status: Acute Assessment and Plan: Patient met criteria for sepsis including HR greater than 90, RR greater than 20, and a significant leukocytosis at 24.6. +Hypoxia without shock. Initial lactic 2.7, repeat 2.4. Imaging concerning for pneumonia, see below. Extremities forearm/well perfused upon admission. No hemodynamic instability noted after supplemental O2 applied. * empiric IV antibiotic therapy with ceftriaxone * Monitor lactic acid levels q6hr. * Two sets of blood cultures pending * urine cultures negative * C-reactive proteins elevated (2) Acute hypoxemic respiratory failure: Code(s): J96.01 - Acute respiratory failure with hypoxia Status: Acute Assessment and Plan: The patient presents here with viral respiratory symptoms including body aches, nausea, vomiting, shortness of breath, and cough. Imaging concerning for pneumonia. Viral PCR negative. No PE. No previous history of supplemental O2 requirement. Arrived 88% on room air on 08/02. No previous history of COPD and never smoker. Acute respiratory failure secondary to pneumonia. * started on broad-spectrum antibiotics for pneumonia * continue supplemental oxygen to maintain O2 sat greater than 92%, wean as tolerated (3) Pneumonia: Qualifiers: Laterality: right Lung location: unspecified part of lung Pneumonia type: due to unspecified organism Qualified Code(s): J18.9 - Pneumonia, unspecified organism Code(s): J18.9 - Pneumonia, unspecified organism Status: Acute Assessment and Plan: CT chest showing extensive airspace opacities in the right lung and minimal in the left lung, leukocytosis and need for supplemental oxygen. influenza/COVID/ RSV negative * started on ceftriaxone and doxycycline (QTC 464) on 08/02 * MRSA positive * added IV vancomycin * duo nebs * Mucinex * antipyretics * incentive spirometer while awake (4) Essential (primary) hypertension: Code(s): I10 - Essential (primary) hypertension Status: Chronic Assessment and Plan: * continue losartan with holding parameters systolic <110 * monitor BP per unit protocol (5) Fecal impaction: Code(s): K56.41 - Fecal impaction Status: Resolved Assessment and Plan: Fecal impaction noted on CT. Reporting urinary incontinence without dysuria, frequency, or hesitancy. UA unremarkable. Complicated by a history of total colectomy. * lactulose q.6 HR until BM * senna/Colace Hs * encourage oral hydration * encourage activity Plan Code status: Full code per patient DVT prophylaxis: Lovenox PT/OT notes: NA Disposition: patient admitted to the medical unit with sepsis secondary to pneumonia and acute respiratory failure with hypoxia will continue with current treatment plan discharge when stable likely be home. Medical Record Review I have reviewed the following patient records and this information was taken into consideration when formulating the assessment and plan.: previous labs, previous ER visits and previous hospitalizations Time Spent With Patient Time with patient: 15 - 25 minutes Subjective Date/time seen: 08/04/25 11:18 Interval history: Patient is an 85-year-old female admitted for further evaluation and treatment of sepsis secondary to pneumonia with acute respiratory failure with hypoxia and fecal impaction. 08/04/2025: Patient still with minimal SOB on 1L supplemental oxygen. Patient did have multiple BM's denied ABD pain. Patient with no CP, N/V, fever, or chills. Review of Systems Review of Systems: All systems reviewed & are unremarkable except as noted in HPI and below Exam Narrative: speech slurred, baseline. Const: General: comfortable and no acute distress Other: , female, elderly, nontoxic appearance HENMT: Face/Nose/Sinus: Normal nares present Mouth: Yes moist mucous membranes Eyes: General: appearance normal, both eyes and all related structures Sclera: sclerae normal Pupils: Equal, round and reactive pupils present EOM: EOMs intact bilaterally Resp: Effort & Inspection: normal respiratory effort Auscultation: clear to auscultation bilaterally Other: Nasal cannula place, tolerating well Cardio: Rate: regular rate Rhythm: regular rhythm Other: S1-S2 present without murmur, rub, ectopy GI: Other: Abdomen soft, nondistended, nontender. Hyperactive bowel sounds in all quadrants. Skin: General skin exam: normal color and no rashes or lesions noted Wounds: no wounds Neuro: Cranial nerves: Yes Equal, round and reactive pupils present Speech: normal speech (Speech more consistent with speech impediment versus slurred) Motor exam (neuro): 5/5 motor strength present throughout Sensory Exam: normal sensation Extrem: General: normal to inspection Psych: Mental Status: mental status grossly normal Affect: normal affect Other: Fair insight and judgment Objective Data Vital Signs Vital Signs: Vital Signs - 24 hr 08/03/25 11:49 08/03/25 13:12 08/03/25 13:12 Temperature 97.6 F Pulse Rate 82 88 Respiratory Rate 16 18 Blood Pressure 121/45 L Pulse Oximetry 98 96 Oxygen Delivery Nasal Cannula Oxygen Flow Rate 2 08/03/25 13:25 08/03/25 20:00 08/03/25 20:00 Temperature 97.8 F Pulse Rate 88 94 Respiratory Rate 18 16 Blood Pressure 133/46 L Pulse Oximetry 97 93 Oxygen Delivery Nasal Cannula Oxygen Flow Rate 2 08/03/25 21:52 08/03/25 21:52 08/04/25 04:45 Temperature 97.9 F Pulse Rate 86 86 91 Respiratory Rate 16 16 18 Blood Pressure 129/55 L Pulse Oximetry 93 98 Oxygen Delivery Nasal Cannula Oxygen Flow Rate 2 08/04/25 09:22 08/04/25 10:33 Temperature Pulse Rate Respiratory Rate Blood Pressure Pulse Oximetry Oxygen Delivery Room Air Nasal Cannula Oxygen Flow Rate 2 Intake/Output Intake/Output: Intake & Output 08/01/25 08/02/25 08/03/25 08/04/25 23:59 23:59 23:59 23:59 Intake Total 2150 640 700 Output Total 250 Balance 1900 640 700 Meds/Results Medications: Active Medications Generic Name Dose Route Start Last Admin Trade Name Freq PRN Reason Stop Dose Admin Acetaminophen 650 mg 08/02/25 19:15 Acetaminophen 325 Mg Tablet PO Q6H PRN Mild Pain (1-3) or Fever Hydrocodone Bitart/Acetaminophen 1 tab 08/02/25 23:46 08/04/25 06:23 Hydrocodone/Acetaminophen (*Crx) 10-325 Mg Tablet PO 1 tab Q6H PRN Administration Pain 7-10 Albuterol/Ipratropium 3 ml 08/03/25 14:00 08/04/25 10:53 Ipratropium 0.5 Mg/Albuterol Sulfate 2.5 Mg (Base) Ampul.Neb 3 Ml INHALATION Not Given Q6HRT CARA Benzonatate 100 mg 08/02/25 19:14 Benzonatate 100 Mg Capsule PO TID PRN Cough Enoxaparin Sodium 40 mg 08/03/25 09:00 08/04/25 10:07 Enoxaparin 40 Mg/0.4 Ml Syringe SUB-Q 40 mg DAILY CARA Administration Guaifenesin 600 mg 08/02/25 21:00 08/04/25 10:06 Guaifenesin 12 Hr 600 Mg Tabcr PO 600 mg Q12HR CARA Administration Ceftriaxone Sodium 1 gm/ 50 mls @ 100 mls/hr 08/03/25 16:00 08/03/25 16:00 Sodium Chloride IVPB 100 mls/hr Q24H CARA Administration Doxycycline Hyclate 100 mg/ 100 mls @ 100 mls/hr 08/02/25 21:00 08/04/25 10:07 Sodium Chloride IVPB 08/07/25 09:59 100 mls/hr Q12H CARA Administration Vancomycin HCl 1,500 mg in 500 mls @ 250 mls/hr 08/04/25 17:00 Vancomycin 1,500 Mg/Ns 500 Ml IVPB Q24H CARA Lactulose 20 gm 08/03/25 12:00 08/04/25 06:23 Lactulose 20 Gm/30 Ml Udc PO 20 gm Q6HR CARA Administration Levothyroxine Sodium 50 mcg 08/03/25 06:30 08/04/25 06:24 Levothyroxine Sodium 50 Mcg Tablet PO 50 mcg DAILY@0630 CARA Administration Losartan Potassium 100 mg 08/03/25 09:00 08/04/25 10:06 Losartan Potassium 100 Mg Tablet PO 100 mg DAILY CARA Administration Melatonin 5 mg 08/02/25 23:50 08/03/25 21:21 Melatonin 5 Mg Tablet PO 5 mg QHS CARA Administration Metoclopramide HCl 10 mg 08/02/25 19:15 Metoclopramide Hcl Inj 10 Mg/2 Ml Vial IV PUSH Q6HR PRN Nausea And Vomiting Mupirocin 1 applic 08/03/25 21:00 08/04/25 10:07 Mupirocin 2% Oint 22 Gm Tube EACH NARE 08/08/25 09:01 1 applic Q12HR CARA Administration Polyethylene Glycol 17 gm 08/03/25 09:00 08/04/25 10:06 Polyethylene Glycol 3350 17 Gm Powd.Pack PO 17 gm QAM CARA Administration Senna/Docusate Sodium 1 tab 08/03/25 21:00 08/03/25 20:23 Senna/Docusate Sodium Tablet PO Not Given HS [facility] Radiology Results: ITS Impressions Chest/Abdomen/Pelvis CTA 08/02/25 15:45 IMPRESSION: 1. No evidence of central pulmonary emboli. Limited visualization of peripheral pulmonary arteries due to motion artifacts. 2. Extensive airspace opacities in the right lung and minimal airspace opacity of left lung base. Likely pneumonia. 3. Below diaphragm, and significantly distended gallbladder containing calcified gallstone. No edema gallbladder wall. Bile ducts are normal in size. 4. Fecal impaction of the rectosigmoid. 5. Severe degenerative disc disease at L3-4 and L4-5 levels with anterolisthesis. Labs Labs: Laboratory Results - last 24 hr 08/03/25 08/03/25 08/04/25 12:47 19:27 06:26 WBC 14.0 H RBC 3.76 L Hgb 11.4 L Hct 37.0 MCV 98.4 MCH 30.3 D MCHC 30.8 L RDW 14.6 H Plt Count 231 MPV 9.7 Sodium 135 L Potassium 4.4 Chloride 110 H Carbon Dioxide 21 L Anion Gap 4 BUN 16 Creatinine 0.69 L Estim Creat Clear Calc 50 Estimated GFR > 60 Glucose 85 Lactic Acid 1.6 Calcium 8.2 L Magnesium 1.9 Total Bilirubin 0.5 AST 24 ALT 14 Alkaline Phosphatase 69 Total Protein 5.6 L Albumin 2.8 L Nasal MRSA (PCR) Detected A* Quality VTE Prophylaxis VTE prophylaxis: pharmacologic ordered -Patient's previous records reviewed on admission -ER notes reviewed in detail on admission -discussed all findings and current treatment plan with patient/Family/POA -Consultations reviewed for recommendations -Patient's disposition for safe discharge discussed with bottle caser -radiology imaging, EKG and test results I have personally reviewed and interpreted unless otherwise specified Dictation performed by [employer] direct speech recognition software, therefore manual winder variants and typographical errors may occur. Hospitalist MIPS Advance Care Plan I have confirmed that the patient's Advanced Care Plan is present, code status is documented, or surrogate decision maker is listed in patient medical record.: Yes Medication Reconciliation I have utilized all available resources to obtain, update and review the patients current medications (includes all prescriptions, OTC, herbals, cannabis, and nutritional supplements).: Yes The patient is not eligible for med reconciliation; the patient is in a emergent medical situation where delaying treatment would jeopardize the patients health.: No
[2025-08-04] MEDS: IPRATROPIUM 0.5 MG/ALBUTEROL SULFATE 2.5 MG (BASE) AMPUL.NEB 3 ML INHALATION ×2 (14:07→19:58)
[2025-08-04] MEDS: cefTRIAXone 1 GM in SODIUM CHLORIDE 0.9% IV 50 ML 100 ML IVPB (16:58)
[2025-08-04] MEDS: VANCOMYCIN 1,500 MG/NS 500 ML 1,500 MG/500 ML BAG 250 MG IVPB (18:39)
[2025-08-04] MEDS: SENNA/DOCUSATE SODIUM TABLET 1 TAB PO (20:57)
[2025-08-04] MEDS: MELATONIN 5 MG TABLET PO (20:58)
[2025-08-05] VITALS (9 sets, daily range): BP systolic 136–162; BP diastolic 62–76; PULSE 81–97; RESP 18–21; TEMP 36.6–36.8; O2SAT 93–100
[2025-08-05] MEDS: IPRATROPIUM 0.5 MG/ALBUTEROL SULFATE 2.5 MG (BASE) AMPUL.NEB 3 ML INHALATION ×3 (01:21→14:22)
[2025-08-05 05:52] LABS: Hematocrit 35.1 % (37.0-47.0); Hemoglobin 11.3 g/dL (12.0-15.0); Mean Corpuscular HGB Conc 32.2 g/dl (32-36); Mean Corpuscular Hemoglobin 30.5 pg (26-34); Mean Corpuscular Volume 94.6 fl (80-100); Platelet Count Result 268 k/mm3 (150-375); Red Blood Count 3.71 M/mm3 (4.2-5.4); White Blood Count 10.2 K/mm3 (4.5-10.0)
[2025-08-05 06:14] LABS: Alanine Aminotransferase 14 U/L (6-35); Albumin Level 3.1 g/dL (3.5-5.1); Alkaline Phosphatase 90 U/L (38-126); Anion Gap 6 mmol/L (4-12); Aspartate Amino Transferase 24 U/L (14-36); Bilirubin,Total 0.6 mg/dL (0.2-1.3); Blood Urea Nitrogen 9 mg/dL (7-17); Calcium 8.8 mg/dL (8.4-10.2); Carbon Dioxide 23 mmol/L (22-30); Chloride 109 mmol/L (98-107); Estimated CRCL calculation 54 ml/min; Estimated Glomerular Filt Rate > 60; Glucose 92 mg/dL (65-110); Magnesium 1.7 mg/dL (1.6-2.3); Potassium 3.7 mmol/L (3.4-5.0); Sodium 138 mmol/L (137-145); Total Protein 6.3 g/dL (6.3-8.2)
[2025-08-05] MEDS: LEVOTHYROXINE SODIUM 50 MCG TABLET PO (07:03)
--- NOTE | 2025-08-05 08:27 | P.PNIM_ITS ---
Assessment and Plan Assessment and Plan (1) Sepsis: Qualifiers: Acute respiratory failure type: with hypoxia Sepsis acute organ dysfunction status: with acute organ dysfunction Sepsis type: sepsis due to unspecified organism Severe sepsis acute organ dysfunction type: acute respiratory failure Severe sepsis shock status: without septic shock Qualified Code(s): A41.9 - Sepsis, unspecified organism; R65.20 - Severe sepsis without septic shock; J96.01 - Acute respiratory failure with hypoxia Code(s): A41.9 - Sepsis, unspecified organism Status: Acute Assessment and Plan: Patient met criteria for sepsis including HR greater than 90, RR greater than 20, and a significant leukocytosis at 24.6. +Hypoxia without shock. Initial lactic 2.7, repeat 2.4. Imaging concerning for pneumonia, see below. Extremities forearm/well perfused upon admission. No hemodynamic instability noted after supplemental O2 applied. WBC 24>22.1>14>10.2 MRSA swab negative * empiric IV antibiotic therapy with IV ceftriaxone, vanc, doxy. Change to augmentin/doxy & monitor * Two sets of blood cultures pending 12/03 * urine cultures negative * Weaned from NC to room air 08/04 (2) Acute hypoxemic respiratory failure: Code(s): J96.01 - Acute respiratory failure with hypoxia Status: Acute Assessment and Plan: The patient presents here with viral respiratory symptoms including body aches, nausea, vomiting, shortness of breath, and cough. Imaging concerning for pneumonia. Viral PCR negative. No PE. No previous history of supplemental O2 requirement. Arrived 88% on room air on 08/02. No previous history of COPD and never smoker. Acute respiratory failure secondary to pneumonia. * started on broad-spectrum antibiotics for pneumonia * continue supplemental oxygen to maintain O2 sat greater than 92%, wean as tolerated (3) Pneumonia: Qualifiers: Laterality: right Lung location: unspecified part of lung Pneumonia type: due to unspecified organism Qualified Code(s): J18.9 - Pneumonia, unspecified organism Code(s): J18.9 - Pneumonia, unspecified organism Status: Acute Assessment and Plan: CT chest showing extensive airspace opacities in the right lung and minimal in the left lung, leukocytosis and need for supplemental oxygen. influenza/COVID/ RSV negative Has dysphagia. Uses a chin tuck and other swallowing techniques recommended by speech therapy to minimize aspiration but sometimes forgets and has had some episodes of food aspiration * started on ceftriaxone and doxycycline (QTC 464) on 08/02 * MRSA swab positive * added IV vancomycin 08/04. Stop since already improving on ceftiraxone/doxy. Changed to augmentin/Doxy, also to cover aspiration. Could have a component of aspiration since she has known aspiration and pneumonia primarily in right lung * duo nebs * Mucinex * antipyretics * incentive spirometer while awake * oral care BID * Speech consult to follow (4) Essential (primary) hypertension: Code(s): I10 - Essential (primary) hypertension Status: Chronic Assessment and Plan: * continue losartan with holding parameters systolic <110 * monitor BP per unit protocol (5) Fecal impaction: Code(s): K56.41 - Fecal impaction Status: Resolved Assessment and Plan: Fecal impaction noted on CT. Reporting urinary incontinence without dysuria, frequency, or hesitancy. UA unremarkable. Complicated by a history of total colectomy. Patient reports she was previously advised to avoid enemas * Stop lactulose * Schedule miralax TID x3 days, senna 2 tabs BID, bisacodyl 10mg PO, suppository hs. * Could likely tolerate a mineral oil enema if needed but could consider GI involvement given history and patient concern * Change diet to full liquids, advance after patient has had a formed BM (so far only liquid, which is likely overflow) * encourage oral hydration * encourage activity Plan 85-year-old female admitted for further evaluation and treatment of sepsis secondary to pneumonia with acute respiratory failure with hypoxia and fecal impaction. 08/04/2025: Patient still with minimal SOB on 1L supplemental oxygen. Patient did have multiple BM's denied ABD pain. Patient with no CP, N/V, fever, or chills. Code status: Full code per patient DVT prophylaxis: Lovenox PT/OT notes: NA Disposition: patient admitted to the medical unit with sepsis secondary to pneumonia and acute respiratory failure with hypoxia will continue with current treatment plan discharge when stable likely be home. Time Spent With Patient Time with patient: Greater than 35 minutes Subjective Date/time seen: 08/05/25 12:35PM Interval history: VSS. No shortness of breath or fevers. Nonproductive cough. Difficulty swallowing chronically. Consulted speech and no aspiration but a lot of residual in mouth. Speech will to continue to work with her Patient reports no BM's for 5 days. 2 BM's charted yesterday but patient reports was just yellow liquid, no solid stool. Large stool on CT. Reports a remote history of colectomy and was advised against enemas previously. Review of Systems Review of Systems: All systems reviewed & are unremarkable except as noted in HPI and below Exam Narrative: General - Awake and alert. No acute distress Eyes - PERRLA, EOM intact ENT - No thrush, No erythema Neck - No noticeable or palpable swelling Lymph Nodes - No lymphadenopathy Cardiovascular - RRR no m/r/g, no JVD Lungs: Clear to auscultation, No wheezing, no use of accessory muscles, no crackles Skin - Skin warm and dry, no wounds or rashes Abdomen - Normal bowel sounds, abdomen soft, mildly distended, nontender Extremities - No edema, cyanosis or clubbing Musculoskeletal - 5/5 strength, normal range of motion, no swollen or erythematous joints. Neurological ? Alert and oriented x 3, CN 2-12 grossly intact. Psych: Normal mood and affect Objective Data Vital Signs Vital Signs: Vital Signs - 24 hr 08/04/25 09:22 08/04/25 10:33 08/04/25 13:52 Temperature 98.7 F Pulse Rate 94 Respiratory Rate 18 Blood Pressure 140/76 Pulse Oximetry 99 Oxygen Delivery Room Air Nasal Cannula Oxygen Flow Rate 2 08/04/25 14:08 08/04/25 14:08 08/04/25 14:19 Temperature Pulse Rate 68 68 63 Respiratory Rate 20 20 20 Blood Pressure Pulse Oximetry 94 Oxygen Delivery Nasal Cannula Oxygen Flow Rate 1 08/04/25 19:58 08/04/25 20:00 08/04/25 20:07 Temperature Pulse Rate 90 85 Respiratory Rate 20 20 Blood Pressure Pulse Oximetry 98 Oxygen Delivery Room Air Oxygen Flow Rate 08/04/25 20:20 08/05/25 01:21 08/05/25 01:30 Temperature 97.4 F L Pulse Rate 107 H 90 88 Respiratory Rate 18 20 20 Blood Pressure 155/53 H Pulse Oximetry 98 Oxygen Delivery Oxygen Flow Rate 08/05/25 05:00 Temperature 98.1 F Pulse Rate 97 Respiratory Rate 18 Blood Pressure 136/76 Pulse Oximetry 93 Oxygen Delivery Oxygen Flow Rate Intake/Output Intake/Output: Intake & Output 08/02/25 08/03/25 08/04/25 08/05/25 23:59 23:59 23:59 23:59 Intake Total 2150 690 1989 322 Output Total 250 Balance 5500 851 9346 322 Meds/Results Medications: Active Medications Generic Name Dose Route Start Last Admin Trade Name Freq PRN Reason Stop Dose Admin Acetaminophen 650 mg 08/02/25 19:15 Acetaminophen 325 Mg Tablet PO Q6H PRN Mild Pain (1-3) or Fever Hydrocodone Bitart/Acetaminophen 1 tab 08/02/25 23:46 08/04/25 20:57 Hydrocodone/Acetaminophen (*Crx) 10-325 Mg Tablet PO 1 tab Q6H PRN Administration Pain 7-10 Albuterol/Ipratropium 3 ml 08/03/25 14:00 08/05/25 01:21 Ipratropium 0.5 Mg/Albuterol Sulfate 2.5 Mg (Base) Ampul.Neb 3 Ml INHALATION 3 ml Q6HRT CARA Administration Benzonatate 100 mg 08/02/25 19:14 Benzonatate 100 Mg Capsule PO TID PRN Cough Diphenhydramine HCl 25 mg 08/04/25 23:16 Diphenhydramine Hcl Inj 50 Mg/Ml Vial IV PUSH Q4H PRN Itching Enoxaparin Sodium 40 mg 08/03/25 09:00 08/04/25 10:07 Enoxaparin 40 Mg/0.4 Ml Syringe SUB-Q 40 mg DAILY CARA Administration Guaifenesin 600 mg 08/02/25 21:00 08/04/25 20:58 Guaifenesin 12 Hr 600 Mg Tabcr PO 600 mg Q12HR CARA Administration Ceftriaxone Sodium 1 gm/ 50 mls @ 100 mls/hr 08/03/25 16:00 08/04/25 16:58 Sodium Chloride IVPB 100 mls/hr Q24H CARA Administration Doxycycline Hyclate 100 mg/ 100 mls @ 100 mls/hr 08/02/25 21:00 08/04/25 23:15 Sodium Chloride IVPB 08/07/25 09:59 Infused Q12H CARA Infusion Vancomycin HCl 1,500 mg in 500 mls @ 250 mls/hr 08/04/25 17:00 08/04/25 18:39 Vancomycin 1,500 Mg/Ns 500 Ml IVPB 250 mls/hr Q24H CARA Administration Levothyroxine Sodium 50 mcg 08/03/25 06:30 08/05/25 07:03 Levothyroxine Sodium 50 Mcg Tablet PO 50 mcg DAILY@0630 CARA Administration Losartan Potassium 100 mg 08/03/25 09:00 08/04/25 10:06 Losartan Potassium 100 Mg Tablet PO 100 mg DAILY CARA Administration Melatonin 5 mg 08/02/25 23:50 08/04/25 20:58 Melatonin 5 Mg Tablet PO 5 mg QHS CARA Administration Metoclopramide HCl 10 mg 08/02/25 19:15 Metoclopramide Hcl Inj 10 Mg/2 Ml Vial IV PUSH Q6HR PRN Nausea And Vomiting Mupirocin 1 applic 08/03/25 21:00 08/04/25 23:35 Mupirocin 2% Oint 22 Gm Tube EACH NARE 08/08/25 09:01 1 applic Q12HR CARA Administration Polyethylene Glycol 17 gm 08/03/25 09:00 08/04/25 10:06 Polyethylene Glycol 3350 17 Gm Powd.Pack PO 17 gm QAM CARA Administration Senna/Docusate Sodium 1 tab 08/03/25 21:00 08/04/25 20:57 Senna/Docusate Sodium Tablet PO 1 tab HS CARA Administration Radiology Results: ITS Impressions Chest/Abdomen/Pelvis CTA 08/02/25 15:45 IMPRESSION: 1. No evidence of central pulmonary emboli. Limited visualization of peripheral pulmonary arteries due to motion artifacts. 2. Extensive airspace opacities in the right lung and minimal airspace opacity of left lung base. Likely pneumonia. 3. Below diaphragm, and significantly distended gallbladder containing calcified gallstone. No edema gallbladder wall. Bile ducts are normal in size. 4. Fecal impaction of the rectosigmoid. 5. Severe degenerative disc disease at L3-4 and L4-5 levels with anterolisthesis. Labs Labs: Laboratory Results - last 24 hr 08/04/25 08/05/25 20:23 05:36 WBC 10.2 H RBC 3.71 L Hgb 11.3 L Hct 35.1 L MCV 94.6 MCH 30.5 MCHC 32.2 RDW 14.3 Plt Count 268 MPV 9.7 Sodium 138 Potassium 3.7 Chloride 109 H Carbon Dioxide 23 Anion Gap 6 BUN 9 D Creatinine 0.64 L Estim Creat Clear Calc 54 Estimated GFR > 60 Glucose 92 POC Capillary Glucose 98 Calcium 8.8 Magnesium 1.7 Total Bilirubin 0.6 AST 24 ALT 14 Alkaline Phosphatase 90 Total Protein 6.3 Albumin 3.1 L Quality VTE Prophylaxis VTE prophylaxis: pharmacologic ordered Hospitalist [facility] Advance Care Plan I have confirmed that the patient's Advanced Care Plan is present, code status is documented, or surrogate decision maker is listed in patient medical record.: Yes Medication Reconciliation I have utilized all available resources to obtain, update and review the patients current medications (includes all prescriptions, OTC, herbals, cannabis, and nutritional supplements).: Yes
[2025-08-05] MEDS: LOSARTAN POTASSIUM 100 MG TABLET PO (09:12)
[2025-08-05] MEDS: guaiFENesin 12 HR 600 MG TABCR PO ×2 (09:12→21:06)
[2025-08-05] MEDS: MUPIROCIN 2% OINT 22 GM TUBE 1 APPLIC EACH NARE ×2 (09:12→21:07)
[2025-08-05] MEDS: ENOXAPARIN 40 MG/0.4 ML SYRINGE SUB-Q (09:12)
[2025-08-05] MEDS: HYDROcodone/acetaminophen (*CRX) 10-325 MG TABLET 1 TAB PO ×3 (09:16→21:23)
[2025-08-05] MEDS: BISACODYL 5 MG TABLET EC 10 MG PO (13:24)
--- NOTE | 2025-08-05 14:01 | PC.NURSE ---
To Radiology per chair for MBS.
--- NOTE | 2025-08-05 14:41 | PCSTNOTE ---
Please refer to the Modified Barium Swallow Evaluation in the EMR. The patient is a 85 year old female admitted with acute hypoxic respiratory failure. Orders received to complete an MBS based on noted CSA with solids during the BSE and history of prior MBS 11/2023 recommended a MBS study. The patient was positioned in a lateral view and presented the following consistencies: 5cc/tsp thin liquid, thin liquid via cup, pudding/puree mixed with barium paste and cracker/solid coated with barium paste. Oral Stage: timely oral preparation and transit for all consistencies without noted oral residual. Pharyngeal Stage: When presented 5cc/tsp thin and thin liquid via cup the patient had no viewed aspiration or penetration and mild residual remaining within the vallecula secondary to reduced lingual pressure. Significant amounts of the residual were cleared with a repeat swallow. When presented both pudding and solid consistencies the patient was viewed to have severe residual remaining within the vallecula following the swallow secondary to reduced lingual pressure. A repeat swallow in isolation was not sufficient in clearing the majority of the residual. However, when alternating bites and drinks the patient was able to clear a significant amount of residual from the vallecula. Recommend 1. Regular Diet / Level 7 2. Thin Liquid / Level 0 3. Upright with meals 4. Alternate bites and drinks 5. Repeat swallow for bites and drinks 6. Small bites and drinks 7. No Straw 8. speech therapy services to train wiht new compensatory techniques and (TBR) Tongue base retraction exercises and (CTAR) Chin tuck against resistance exercises.
[2025-08-05] MEDS: CHLORHEXIDINE GLUCONATE 0.12% ORAL RINSE 473 ML BTL (*BKC) 15 ML SWISH/SPIT (16:58)
[2025-08-05] MEDS: SENNA/DOCUSATE SODIUM TABLET 2 TAB PO (16:58)
[2025-08-05] MEDS: MELATONIN 5 MG TABLET PO (21:06)
[2025-08-05] MEDS: BISACODYL 10 MG SUPPOSITORY RECTAL (21:07)
[2025-08-05] MEDS: DOXYCYCLINE HYCLATE 100 MG TABLET PO (21:07)
[2025-08-05] MEDS: METOCLOPRAMIDE HCL INJ 10 MG/2 ML VIAL IV PUSH (22:36)
[2025-08-06] MEDS: LEVOTHYROXINE SODIUM 50 MCG TABLET PO (05:22)
[2025-08-06] MEDS: HYDROcodone/acetaminophen (*CRX) 10-325 MG TABLET 1 TAB PO ×3 (05:24→20:44)
[2025-08-06 05:27] VITALS: BP 137/60; PULSE 86; RESP 16; TEMP 36.2; O2SAT 96
[2025-08-06 06:00] LABS: Hematocrit 37.0 % (37.0-47.0); Hemoglobin 12.0 g/dL (12.0-15.0); Mean Corpuscular HGB Conc 32.4 g/dl (32-36); Mean Corpuscular Hemoglobin 30.4 pg (26-34); Mean Corpuscular Volume 93.7 fl (80-100); Platelet Count Result 286 k/mm3 (150-375); Red Blood Count 3.95 M/mm3 (4.2-5.4); White Blood Count 8.1 K/mm3 (4.5-10.0)
[2025-08-06 06:16] LABS: CRP 4.4 mg/dL (<1.0)
[2025-08-06 06:24] LABS: Alanine Aminotransferase 13 U/L (6-35); Albumin Level 3.2 g/dL (3.5-5.1); Alkaline Phosphatase 83 U/L (38-126); Anion Gap 3 mmol/L (4-12); Aspartate Amino Transferase 24 U/L (14-36); Bilirubin,Total 0.6 mg/dL (0.2-1.3); Blood Urea Nitrogen 7 mg/dL (7-17); Calcium 8.8 mg/dL (8.4-10.2); Carbon Dioxide 26 mmol/L (22-30); Chloride 106 mmol/L (98-107); Estimated CRCL calculation 54 ml/min; Estimated Glomerular Filt Rate > 60; Glucose 90 mg/dL (65-110); Magnesium 1.7 mg/dL (1.6-2.3); Potassium 3.8 mmol/L (3.4-5.0); Sodium 135 mmol/L (137-145); Total Protein 6.4 g/dL (6.3-8.2)
--- NOTE | 2025-08-06 07:44 | P.PNIM_ITS ---
Assessment and Plan Assessment and Plan (1) Sepsis: Qualifiers: Acute respiratory failure type: with hypoxia Sepsis acute organ dysfunction status: with acute organ dysfunction Sepsis type: sepsis due to unspecified organism Severe sepsis acute organ dysfunction type: acute respiratory failure Severe sepsis shock status: without septic shock Qualified Code(s): A41.9 - Sepsis, unspecified organism; R65.20 - Severe sepsis without septic shock; J96.01 - Acute respiratory failure with hypoxia Code(s): A41.9 - Sepsis, unspecified organism Status: Acute Assessment and Plan: Patient met criteria for sepsis including HR greater than 90, RR greater than 20, and a significant leukocytosis at 24.6. +Hypoxia without shock. Initial lactic 2.7, repeat 2.4. Imaging concerning for pneumonia, see below. - admit WBC 24, normalized -MRSA swab positive - recieved empiric IV antibiotic therapy with IV ceftriaxone, vanc, doxy. Change to augmentin/doxy & monitor - blood cultures NGTD -urine cultures negative -Weaned from NC to room air 08/04 (2) Acute hypoxemic respiratory failure: Code(s): J96.01 - Acute respiratory failure with hypoxia Status: Acute Assessment and Plan: The patient presents here with viral respiratory symptoms including body aches, nausea, vomiting, shortness of breath, and cough. Imaging concerning for pneumonia. Viral PCR negative. No PE. No previous history of supplemental O2 requirement. Arrived 88% on room air on 08/02. No previous history of COPD and never smoker. Acute respiratory failure secondary to pneumonia. - treatment of pneumonia as below - weaned to RA, resolved (3) Pneumonia: Qualifiers: Laterality: right Lung location: unspecified part of lung Pneumonia type: due to unspecified organism Qualified Code(s): J18.9 - Pneumonia, unspecified organism Code(s): J18.9 - Pneumonia, unspecified organism Status: Acute Assessment and Plan: -CT chest showing extensive airspace opacities in the right lung and minimal in the left lung, leukocytosis and need for supplemental oxygen. - [facility] [place] patient tolerated regular consistency - influenza/COVID/ RSV negative - Has history of dysphagia. Uses a chin tuck and other swallowing techniques recommended by speech therapy to minimize aspiration but sometimes forgets and has had some episodes of food aspiration -MRSA swab positive - added IV vancomycin 08/04. Stop since already improving on ceftriaxone/doxy. Changed to augmentin/Doxy, also to cover aspiration. Could have a component of aspiration since she has known aspiration and pneumonia primarily in right lung - continue supportive care, respiratory care (4) Essential (primary) hypertension: Code(s): I10 - Essential (primary) hypertension Status: Chronic Assessment and Plan: - continue losartan (5) Fecal impaction: Code(s): K56.41 - Fecal impaction Status: Resolved Assessment and Plan: -Fecal impaction noted on CT. Reporting urinary incontinence without dysuria, frequency, or hesitancy. UA unremarkable. Complicated by a history of total colectomy. Patient reports she was previously advised to avoid enemas - Stop lactulose - KUB 08/06 with nonobstructive bowel-gas pattern -will decrease bowel regimen given loose stools and nausea -advance to regular diet and monitor response -encourage oral hydration -encourage activity Plan Code status: Full code per patient DVT prophylaxis: Lovenox Disposition: likely home tomorrow Medical Record Review I have reviewed the following patient records and this information was taken into consideration when formulating the assessment and plan.: previous labs Subjective Date/time seen: 08/06/25 07:44 Interval history: Patient seen and examined at bedside. Concerned that she has still not had a solid bowel movement. Complaining of some nausea. No abdominal pain. Passing gas. Did discuss with patient that she might be having liquid stools now that she has received multiple doses of laxatives/stool softeners and a suppository. Review of Systems Review of Systems: All systems reviewed & are unremarkable except as noted in HPI and below Exam Narrative: General: NAD Eyes: EOMI ENT: neck supple Cardiovascular: Regular rate and rhythm Respiratory: Clear to auscultation, respirations even and unlabored on RA Gastrointestinal: Soft, mild distention, bowel sounds active Genitourinary: no suprapubic tenderness Musculoskeletal: No edema Skin: warm, dry Neuro: Alert. Psych: Mood appropriate Objective Data Vital Signs Vital Signs: Vital Signs - 24 hr 08/05/25 08:00 08/05/25 08:29 08/05/25 08:29 Temperature Pulse Rate 95 95 Respiratory Rate 20 20 Blood Pressure Pulse Oximetry 93 Oxygen Delivery Room Air Room Air Fraction of Inspired Oxygen 21 08/05/25 08:45 08/05/25 14:00 08/05/25 14:22 Temperature 98.2 F Pulse Rate 96 92 88 Respiratory Rate 20 19 21 H Blood Pressure 162/62 H Pulse Oximetry 100 Oxygen Delivery Fraction of Inspired Oxygen 08/05/25 14:35 08/05/25 20:29 08/06/25 05:27 Temperature 97.8 F 97.2 F L Pulse Rate 89 81 86 Respiratory Rate 20 20 16 Blood Pressure 159/65 H 137/60 Pulse Oximetry 96 96 Oxygen Delivery Fraction of Inspired Oxygen Intake/Output Intake/Output: Intake & Output 08/03/25 08/04/25 08/05/25 08/06/25 23:59 23:59 23:59 23:59 Intake Total 690 1989 1352 910 Output Total 1 Balance 690 1989 1352 909 Meds/Results Medications: Active Medications Generic Name Dose Route Start Last Admin Trade Name Freq PRN Reason Stop Dose Admin Acetaminophen 650 mg 08/02/25 19:15 Acetaminophen 325 Mg Tablet PO Q6H PRN Mild Pain (1-3) or Fever Hydrocodone Bitart/Acetaminophen 1 tab 08/02/25 23:46 08/06/25 05:24 Hydrocodone/Acetaminophen (*Crx) 10-325 Mg Tablet PO 1 tab Q6H PRN Administration Pain 7-10 Albuterol/Ipratropium 3 ml 08/05/25 15:21 Ipratropium 0.5 Mg/Albuterol Sulfate 2.5 Mg (Base) Ampul.Neb 3 Ml INHALATION Q6HRT PRN Shortness Of Breath Or Wheezing Amoxicillin/Clavulanate Potassium 1 tablet 08/05/25 21:00 08/05/25 21:06 Amoxicillin/Clavulanate K 875-125 Mg Tab PO 08/10/25 20:59 1 tablet Q12HR CARA Administration Benzonatate 100 mg 08/02/25 19:14 Benzonatate 100 Mg Capsule PO TID PRN Cough Bisacodyl 10 mg 08/05/25 12:45 08/05/25 13:24 Bisacodyl 5 Mg Tablet Ec PO 10 mg QAM CARA Administration Chlorhexidine Gluconate 15 ml 08/05/25 17:00 08/05/25 16:58 Chlorhexidine Gluconate 0.12% Oral Rinse 473 Ml Btl (*Bkc) SWISH/SPIT 15 ml BID CARA Administration Diphenhydramine HCl 25 mg 08/04/25 23:16 Diphenhydramine Hcl Inj 50 Mg/Ml Vial IV PUSH Q4H PRN Itching Doxycycline Hyclate 100 mg 08/05/25 21:00 08/05/25 21:07 Doxycycline Hyclate 100 Mg Tablet PO 08/10/25 20:59 100 mg Q12HR CARA Administration Enoxaparin Sodium 40 mg 08/03/25 09:00 08/05/25 09:12 Enoxaparin 40 Mg/0.4 Ml Syringe SUB-Q 40 mg DAILY CARA Administration Guaifenesin 600 mg 08/02/25 21:00 08/05/25 21:06 Guaifenesin 12 Hr 600 Mg Tabcr PO 600 mg Q12HR CARA Administration Levothyroxine Sodium 50 mcg 08/03/25 06:30 08/06/25 05:22 Levothyroxine Sodium 50 Mcg Tablet PO 50 mcg DAILY@0630 CARA Administration Losartan Potassium 100 mg 08/03/25 09:00 08/05/25 09:12 Losartan Potassium 100 Mg Tablet PO 100 mg DAILY CARA Administration Melatonin 5 mg 08/02/25 23:50 08/05/25 21:06 Melatonin 5 Mg Tablet PO 5 mg QHS CARA Administration Metoclopramide HCl 10 mg 08/02/25 19:15 08/05/25 22:36 Metoclopramide Hcl Inj 10 Mg/2 Ml Vial IV PUSH 10 mg Q6HR PRN Administration Nausea And Vomiting Mupirocin 1 applic 08/03/25 21:00 08/05/25 21:07 Mupirocin 2% Oint 22 Gm Tube EACH NARE 08/08/25 09:01 1 applic Q12HR CARA Administration Polyethylene Glycol 17 gm 08/05/25 13:00 08/05/25 16:58 Polyethylene Glycol 3350 17 Gm Powd.Pack PO 08/07/25 12:59 17 gm TID CARA Administration Senna/Docusate Sodium 2 tab 08/05/25 17:00 08/05/25 16:58 Senna/Docusate Sodium Tablet PO 2 tab BID CARA Administration Radiology Results: ITS Impressions Chest/Abdomen/Pelvis CTA 08/02/25 15:45 IMPRESSION: 1. No evidence of central pulmonary emboli. Limited visualization of peripheral pulmonary arteries due to motion artifacts. 2. Extensive airspace opacities in the right lung and minimal airspace opacity of left lung base. Likely pneumonia. 3. Below diaphragm, and significantly distended gallbladder containing calcified gallstone. No edema gallbladder wall. Bile ducts are normal in size. 4. Fecal impaction of the rectosigmoid. 5. Severe degenerative disc disease at L3-4 and L4-5 levels with anterolisthesis. Modified Barium Swallow 08/05/25 14:25 IMPRESSION: Patient tolerated regular consistency oral feedings in the upright position. Please correlate with speech pathologist findings and specific feeding recommendations. Labs Labs: Laboratory Results - last 24 hr 08/06/25 05:41 WBC 8.1 RBC 3.95 L Hgb 12.0 Hct 37.0 MCV 93.7 MCH 30.4 MCHC 32.4 RDW 14.0 Plt Count 286 MPV 9.6 ESR 121 H Sodium 135 L Potassium 3.8 Chloride 106 Carbon Dioxide 26 Anion Gap 3 L BUN 7 Creatinine 0.64 L Estim Creat Clear Calc 54 Estimated GFR > 60 Glucose 90 Calcium 8.8 Magnesium 1.7 Total Bilirubin 0.6 AST 24 ALT 13 Alkaline Phosphatase 83 C-Reactive Protein 4.4 H Total Protein 6.4 Albumin 3.2 L Quality VTE Prophylaxis VTE prophylaxis: pharmacologic ordered
[2025-08-06] MEDS: DOXYCYCLINE HYCLATE 100 MG TABLET PO ×2 (08:28→20:44)
[2025-08-06] MEDS: BISACODYL 5 MG TABLET EC 10 MG PO (08:28)
[2025-08-06] MEDS: ENOXAPARIN 40 MG/0.4 ML SYRINGE SUB-Q (08:29)
[2025-08-06] MEDS: SENNA/DOCUSATE SODIUM TABLET 2 TAB PO (08:29)
[2025-08-06] MEDS: LOSARTAN POTASSIUM 100 MG TABLET PO (08:29)
[2025-08-06] MEDS: guaiFENesin 12 HR 600 MG TABCR PO ×2 (08:29→20:44)
[2025-08-06] MEDS: MUPIROCIN 2% OINT 22 GM TUBE 1 APPLIC EACH NARE ×2 (08:31→20:45)
[2025-08-06] MEDS: METOCLOPRAMIDE HCL INJ 10 MG/2 ML VIAL IV PUSH ×2 (12:07→20:07)
[2025-08-06 14:00] VITALS: BP 159/59; PULSE 90; RESP 18; TEMP 36.8; O2SAT 96
[2025-08-06] MEDS: CHLORHEXIDINE GLUCONATE 0.12% ORAL RINSE 473 ML BTL (*BKC) 15 ML SWISH/SPIT (16:56)
[2025-08-06] MEDS: SENNA/DOCUSATE SODIUM TABLET 1 TAB PO (16:56)
[2025-08-06] MEDS: MELATONIN 5 MG TABLET PO (20:44)
[2025-08-06 20:47] VITALS: BP 140/57; PULSE 100; RESP 16; TEMP 36.3; O2SAT 96
[2025-08-07] MEDS: HYDROcodone/acetaminophen (*CRX) 10-325 MG TABLET 1 TAB PO ×2 (04:53→12:13)
[2025-08-07] MEDS: LEVOTHYROXINE SODIUM 50 MCG TABLET PO (05:37)
[2025-08-07 06:00] VITALS: BP 139/65; PULSE 85; RESP 16; TEMP 36.8; O2SAT 94
[2025-08-07 06:53] LABS: Hematocrit 37.5 % (37.0-47.0); Hemoglobin 12.2 g/dL (12.0-15.0); Mean Corpuscular HGB Conc 32.5 g/dl (32-36); Mean Corpuscular Hemoglobin 30.4 pg (26-34); Mean Corpuscular Volume 93.5 fl (80-100); Platelet Count Result 312 k/mm3 (150-375); Red Blood Count 4.01 M/mm3 (4.2-5.4); White Blood Count 7.6 K/mm3 (4.5-10.0)
[2025-08-07 07:15] LABS: Alanine Aminotransferase 12 U/L (6-35); Albumin Level 3.3 g/dL (3.5-5.1); Alkaline Phosphatase 83 U/L (38-126); Anion Gap 6 mmol/L (4-12); Aspartate Amino Transferase 23 U/L (14-36); Bilirubin,Total 0.5 mg/dL (0.2-1.3); Blood Urea Nitrogen 8 mg/dL (7-17); Calcium 9.1 mg/dL (8.4-10.2); Carbon Dioxide 21 mmol/L (22-30); Chloride 108 mmol/L (98-107); Estimated CRCL calculation 55 ml/min; Estimated Glomerular Filt Rate > 60; Glucose 91 mg/dL (65-110); Magnesium 1.6 mg/dL (1.6-2.3); Potassium 3.8 mmol/L (3.4-5.0); Sodium 135 mmol/L (137-145); Total Protein 6.6 g/dL (6.3-8.2)
[2025-08-07] MEDS: MUPIROCIN 2% OINT 22 GM TUBE 1 APPLIC EACH NARE (09:27)
[2025-08-07] MEDS: CHLORHEXIDINE GLUCONATE 0.12% ORAL RINSE 473 ML BTL (*BKC) 15 ML SWISH/SPIT (09:27)
[2025-08-07] MEDS: ENOXAPARIN 40 MG/0.4 ML SYRINGE SUB-Q (09:28)
[2025-08-07] MEDS: LOSARTAN POTASSIUM 100 MG TABLET PO (09:28)
[2025-08-07] MEDS: guaiFENesin 12 HR 600 MG TABCR PO (09:28)
[2025-08-07] MEDS: DOXYCYCLINE HYCLATE 100 MG TABLET PO (09:28)
[2025-08-07] MEDS: SENNA/DOCUSATE SODIUM TABLET 1 TAB PO (09:29)
[2025-08-07] MEDS: METOCLOPRAMIDE HCL INJ 10 MG/2 ML VIAL IV PUSH (11:34)
--- NOTE | 2025-08-07 11:43 | P.DS_ITS ---
DS: Admitting Diagnosis Discharge Date 08/07/25 Admitting Diagnosis - sepsis - pneumonia DS: Discharge Diagnosis Discharge Diagnosis (1) Sepsis: Qualifiers: Acute respiratory failure type: with hypoxia Sepsis acute organ dysfunction status: with acute organ dysfunction Sepsis type: sepsis due to unspecified organism Severe sepsis acute organ dysfunction type: acute respiratory failure Severe sepsis shock status: without septic shock Qualified Code(s): A41.9 - Sepsis, unspecified organism; R65.20 - Severe sepsis without septic shock; J96.01 - Acute respiratory failure with hypoxia Code(s): A41.9 - Sepsis, unspecified organism Status: Acute (2) Acute hypoxemic respiratory failure: Code(s): J96.01 - Acute respiratory failure with hypoxia Status: Acute (3) Pneumonia: Qualifiers: Laterality: right Lung location: unspecified part of lung Pneumonia type: due to unspecified organism Qualified Code(s): J18.9 - Pneumonia, unspecified organism Code(s): J18.9 - Pneumonia, unspecified organism Status: Acute (4) Essential (primary) hypertension: Code(s): I10 - Essential (primary) hypertension Status: Chronic (5) Fecal impaction: Code(s): K56.41 - Fecal impaction Status: Resolved DS: Summary Hospital Course Hospital Course: The patient is an 85-year-old female who presented via EMS with generalized weakness, nausea/vomiting, cough, shortness of breath, and hypoxia and was found to have sepsis with acute hypoxemic respiratory failure secondary to right-sided pneumonia. On admission, she met sepsis criteria with tachycardia, tachypnea, leukocytosis to 24.6, and elevated lactate, with oxygen saturation of 88% on room air. CTA of the chest, abdomen, and pelvis showed extensive right lung airspace opacities consistent with pneumonia, no pulmonary embolism, and fecal impaction of the rectosigmoid. She was started on empiric IV antibiotics including ceftriaxone, doxycycline, and vancomycin, as well as supplemental oxygen. Infectious workup was notable for negative viral PCR testing, negative urine studies, and blood cultures with no growth at 48 hours. MRSA screening was positive, and she was started on MRSA decolonization therapy during admission. Her respiratory status steadily improved, allowing weaning from nasal cannula to room air by 08/04, with resolution of hypoxia. Leukocytosis and lactate normalized, and sepsis resolved without progression to shock. Antibiotics were transitioned to oral amoxicillin/clavulanate potassium (Augmentin) and doxycycline to complete a 7-day total course, with coverage for possible aspiration given her history of dysphagia. Speech therapy evaluated her swallowing, and a modified barium swallow demonstrated tolerance of a regular diet with recommendations reinforced. Her hospital course was also notable for fecal impaction and constipation, likely multifactorial and contributed to by chronic opioid use and prior total colectomy. She was treated with an aggressive bowel regimen, resulting in multiple bowel movements prior to discharge. A follow-up KUB showed a nonobstructive bowel gas pattern without evidence of obstruction. Her bowel regimen was subsequently de?escalated as symptoms improved. She was encouraged to resume daily milk of magnesia at home, which has been effective for her in the past, and to follow up with her primary care provider or pain management regarding opioid-induced constipation and consideration of alternative therapies if constipation persists. Patient was seen by PT/OT who recommended discharge home. She was ambulating independently on day of discharge. The patient remained hemodynamically stable, tolerated oral intake, and had no recurrent respiratory symptoms. She was discharged home in stable condition on oral Augmentin and doxycycline to complete a 7-day course, with continuation of MRSA decolonization medications and appropriate outpatient follow-up. Status at Discharge Functional status at discharge: independent ambulation Overall status at discharge: patient is progressing back to baseline Time Spent with Patient Time attestation: Total time spent providing and/or coordinating discharge services: Time spent: Greater than 30 minutes Exam Narrative: General: NAD Eyes: EOMI ENT: neck supple Cardiovascular: Regular rate and rhythm Respiratory: Clear to auscultation, respirations even and unlabored on RA Gastrointestinal: Soft, nondistended, bowel sounds active Genitourinary: no suprapubic tenderness Musculoskeletal: No edema Skin: warm, dry Neuro: Alert. Psych: Mood appropriate DS: Data Data Completed and Pending Completed studies during hospitalization: ITS Impressions Chest/Abdomen/Pelvis CTA 08/02/25 15:45 IMPRESSION: 1. No evidence of central pulmonary emboli. Limited visualization of peripheral pulmonary arteries due to motion artifacts. 2. Extensive airspace opacities in the right lung and minimal airspace opacity of left lung base. Likely pneumonia. 3. Below diaphragm, and significantly distended gallbladder containing calcified gallstone. No edema gallbladder wall. Bile ducts are normal in size. 4. Fecal impaction of the rectosigmoid. 5. Severe degenerative disc disease at L3-4 and L4-5 levels with anterolisthesis. Modified Barium Swallow 08/05/25 14:25 IMPRESSION: Patient tolerated regular consistency oral feedings in the upright position. Please correlate with speech pathologist findings and specific feeding recommendations. Abdomen X-Ray 08/06/25 13:52 Impression: 1: Nonobstructive bowel gas pattern. Labs on day of discharge: Labs from last 24 hours 08/07/25 06:22 WBC 7.6 RBC 4.01 L Hgb 12.2 Hct 37.5 MCV 93.5 MCH 30.4 MCHC 32.5 RDW 13.9 Plt Count 312 MPV 9.7 Sodium 135 L Potassium 3.8 Chloride 108 H Carbon Dioxide 21 L Anion Gap 6 BUN 8 Creatinine 0.63 L Estim Creat Clear Calc 55 Estimated GFR > 60 Glucose 91 Calcium 9.1 Magnesium 1.6 Total Bilirubin 0.5 AST 23 ALT 12 Alkaline Phosphatase 83 Total Protein 6.6 Albumin 3.3 L Preliminary micro results at discharge 08/02/25 14:34 Blood Culture - Preliminary Blood 08/02/25 14:43 Blood Culture - Preliminary Blood Discharge Plan Discharge Attending physician on discharge: Flakita Bueno Consulting providers: Magaly Solomon; Serena Potts; Kaylee Bradley Discharging Clinician: Kaylee Bradley Anticipated Discharge Date/Time: 08/07/25 11:30 Patient Disposition: Home Activity: unlimited Diet: regular and high fiber Discharge Instructions: Discharge Instructions ? Pneumonia Diagnosis?You were hospitalized for pneumonia, possibly caused by MRSA. You are improving and safe to continue recovery at home. Medications * Augmentin: Take exactly as prescribed until finished. * Doxycycline: Take exactly as prescribed until finished. * Take with food to reduce stomach upset. * Swallow with a full glass of water and avoid lying down for at least 30 minutes after taking it. * Milk of Magnesia: Restart?30 mL by mouth once daily?for constipation. Medication Side Effects to Watch For * Augmentin: Diarrhea, nausea, stomach upset, or rash. Call if you develop severe diarrhea or signs of an allergic reaction (hives, swelling, trouble breathing). * Doxycycline: Nausea, heartburn, sun sensitivity (use sunscreen and protective clothing). Call if you have severe stomach pain, trouble swallowing, or persistent vomiting. Constipation Management * Your abdominal X-ray did not show signs of fecal impaction or obstruction. Your loose stools are likely due to receiving laxatives in the hospital * Continue Milk of Magnesia daily as above. * Drink plenty of fluids and stay as active as tolerated. * If constipation continues, discuss treatment options for?opioid-induced constipation?with your pain management provider. When to Seek Care * Fever, worsening cough, chest pain, or shortness of breath * Inability to tolerate medications * Severe diarrhea, rash, or signs of an allergic reaction Follow-Up * Follow up with your primary care provider as scheduled. Patient Instructions: Antibiotic Form Patient Language: Citizen Of [place] Stand Alone Forms: General Discharge Information Follow-up/Referrals: Shailesh Sanders MD [Primary Care Provider, Internal Medicine] - Call for Appointment Referral Note: follow-up in 1 week Lazaro Hou MD [Physician, Gastroenterology] Discharge Medications: New amoxicillin-pot clavulanate 875-125 mg tablet 1 tablet PO Q12H Qty: 4 0RF doxycycline hyclate 100 mg capsule 100 mg PO BID Qty: 4 0RF magnesium hydroxide [Milk of Magnesia] 400 mg/5 mL suspension 30 ml PO DAILY Qty: 3780 0RF chlorhexidine gluconate 0.12 % Mouthwash 15 ml SWISHSPIT BID 3 Days Qty: 120 0RF sennosides-docusate sodium [Senokot-S] 8.6-50 mg Tablet 1 tab-cap PO BID PRN (Reason: constipation) Qty: 30 0RF mupirocin 2 % Ointment 1 applic EACH NARE Q12HR 3 Days Qty: 22 0RF metoclopramide HCl [Reglan] 5 mg tablet 5 mg PO Q8H PRN (Reason: nausea and vomiting) Qty: 10 0RF Continued hydrocodone-acetaminophen 10-325 mg tablet 1 tablet PO Q6H PRN (Reason: pain) docusate sodium 50 mg capsule 50 mg PO BID PRN (Reason: constipation) Qty: 180 2RF melatonin 5 mg tablet 5 mg PO QHS Qty: 90 2RF tretinoin 0.1 % cream See Rx Instructions .ROUTE .COMPLEX Qty: 20 0RF Dose Instruction: APPLY TOPICALLY TO FACE DAILY Rx Instructions: APPLY TOPICALLY TO FACE DAILY levothyroxine 50 mcg tablet See Rx Instructions .ROUTE .COMPLEX Qty: 90 2RF Dose Instruction: TAKE 1 TABLET BY MOUTH DAILY Rx Instructions: TAKE 1 TABLET BY MOUTH DAILY losartan 100 mg tablet 100 mg PO DAILY Date of admission: 08/03/25 07:45 Primary Care Provider: Shailesh Sanders Admitting Provider: Leonides Salter Attending physician on admission: Leonides Salter Condition: Stable
== END 2025-08-07 14:00 | disposition home or self-care (01) | DRG 871 ==
LOC: ANHED 17:29 → ANH3MEDSUR 19:02
PROVIDERS: Emergency Medicine; Nurse Practitioner Acute Care; Nurse Practitioner Family; Student in an Organized Health Care Education/Training Program; Admitting Provider Internal Medicine; Emergency Provider Physician Assistant; PCP Emergency Medicine; Visit Provider Internal Medicine
DX: A41.9 Sepsis, unspecified organism (principal); J18.9 Pneumonia, unspecified organism; J96.01 Acute respiratory failure with hypoxia; J69.0 Pneumonitis due to inhalation of food and vomit; K56.41 Fecal impaction; T40.605A Adverse effect of unspecified narcotics, initial encounter; M47.26 Other spondylosis with radiculopathy, lumbar region; I10 Essential (primary) hypertension; E78.5 Hyperlipidemia, unspecified; M06.9 Rheumatoid arthritis, unspecified; M16.0 Bilateral primary osteoarthritis of hip; M48.061 Spinal stenosis, lumbar region without neurogenic claudication; Z20.822 Contact with and (suspected) exposure to COVID-19; E03.9 Hypothyroidism, unspecified; F41.9 Anxiety disorder, unspecified; R32 Unspecified urinary incontinence; Z96.641 Presence of right artificial hip joint; Z90.710 Acquired absence of both cervix and uterus; Z22.322 Carrier or suspected carrier of Methicillin resistant Staphylococcus aureus
CPT/HCPCS: 36415; 71275; 74018; 74177; 74230; 80048; 80053; 81003; 82948; 83605; 83690; 83735; 83880; 84145; 85025; 85027; 85652; 86140; 87040; 87637; 87641; 92526; 92610; 92611; 93005; 94640; 96361; 96365; 96375; 97161; 97166; 97530; 97535; 99285; A4248; A9270; G0378; J0696; J1650; J2405; J2765; J3373; J7030; J7040; J7120; Q9967